=== PATIENT | male | born 1960 | race Caucasian/White ===

== ENCOUNTER 2020-06-20 14:56 | Inpatient (IN) | payer MEDICAID, SELFPAY ==
[2020-06-20] VITALS (17 sets, daily range): BP systolic 129–190; BP diastolic 83–123; PULSE 72–98; RESP 13–26; TEMP 36.2–36.7; O2SAT 97–100; BMI 20.7
--- NOTE | ~2020-06-20 | XR_ITS ---
EXAMINATION: XR chest 2V DATE: 06/20/2020 15:35 INDICATION: Left upper chest pain. TECHNIQUE: Frontal and lateral views of the chest were obtained. COMPARISON: Chest 2 views 04/30/2018, chest CT 04/30/2018 FINDINGS: There is a staple line in right lung. There is mild scarring at the lung apices. There is a tiny right pleural effusion. No pneumothorax. The heart size is normal. There is a left chest wall p acer with leads in the right atrium and right ventricle. There is mild chronic anterior wedging of a midthoracic vertebral body. IMPRESSION: 1. Tiny right pleural effusion. 2. Mild scarring at the lung apices. Reviewed, dictated and finalized at location A.
--- NOTE | ~2020-06-20 | US_ITS ---
EXAMINATION: US right upper quadrant EXAM DATE: 06/22/2020 09:19 INDICATION: Elevated liver function tests. TECHNIQUE: Multiple grayscale and Doppler images of the abdomen right upper quadrant were obtained (b y a technologist who performed the scan) and subsequently reviewed. Comparison is made to prior exami nation from 04/24/2018. FINDINGS: The pancreatic head and body are normal in appearance. The pancreatic tail is not visualized. The l iver has normal echogenicity and contour. There are no focal liver lesions identified. There is no evidence of intrahepatic biliary duct dilation. Portal venous flow was seen in the hepatopedal, nor mal direction and has normal Doppler waveform. No right-sided hydronephrosis. Common bile duct measures 4 mm, which is normal. The gallbladder is contracted, with thickened wall a t 4 mm (was 7 mm in 2018). No pericholecystic fluid. Technologist performing exam reports patient did not demonstrate sonographic Herring's sign. Please note that this sign is less reliable in patients who have received pain medication. IMPRESSION: 1. Contracted gallbladder with wall thickening which could be from underdistention, improvement in w all thickening compared to 2018 exam. 2. Unremarkable liver. Reviewed, dictated and finalized at location B. IMPRESSION: 1. Contracted gallbladder with wall thickening which could be from underdisten tion, improvement in wall thickening compared to 2018 exam. 2. Unremarkable liver.
--- NOTE | 2020-06-20 14:59 | ECG_ITS ---
Measurements Intervals [place] Rate: 83 P: -17 MS: 178 QRS: 9 QRSD: 114 T: 61 QT: 411 QTc: 483 Interpretive Statements SINUS RHYTHM INTRAVENTRICULAR CONDUCTION DELAY LEFT VENTRICULAR HYPERTROPHY AND ST-T CHANGE BORDERLINE ST-T WAVE ABNORMALITY- ANTEROLAT/HIGH LAT LEADS BASELINE ARTIFACT- III, AVF, V4-V6 BORDERLINE ECG Electronically Signed On 06-21-2020 7:59:59 CDT by Casimiro Jones D.O.
--- NOTE | 2020-06-20 15:15 | ED.GENADULT ---
HPI - General Adult General Chief complaint: Unspecified Stated complaint: chest pain Time Seen by Provider: 06/20/20 15:07 Source: patient and other Mode of arrival: ambulatory Limitations: no limitations History of Present Illness HPI narrative: Patient is a 60-year-old male Cardiac history notable for having an AICD Also has a history of hepatitis C Presents to the ER complaining that his AICD fired once this morning at about 9 AM He had not noticed any palpitations or lightheadedness prior to that happening, no chest pain no shortness of breath Additional complaint is that he has been having gait trouble and stumbling around recently Additionally he is apparently not been taking most of his medications recently because of some issue with his [place] Medicaid However he has been able to consume 8 to 10 cans of malt liquor a day, and had already begun before coming into the ER today He claims his agronomy professor told him that four would be okay, he does not see a liver doctor currently so no word on what their advice might have been Onset (ago): hour(s) Related Data Allergies Allergy/AdvReac Type Severity Reaction Status Date / Time No Known Allergies Allergy Unverified 09/08/18 20:24 Review of Systems Review of Systems: All systems reviewed & are unremarkable except as noted in HPI and below Constitutional: Constitutional: Denies chills, Reports fatigue, Denies fever(s), Denies headache(s) and Denies night sweats Eyes: Eyes: Denies change in vision, Denies loss of vision and Denies other visual disturbances ENT: Denies headache(s), Denies hoarseness, Denies epistaxis, Denies nasal congestion and Denies sore throat Cardiovascular: Cardiovascular: Reports chest pain (Sharp, brief as AICD fired), Denies leg edema, Denies palpitations and Denies dyspnea Respiratory: Respiratory: Denies cough, Denies dyspnea and Denies wheezing Gastrointestinal: Gastrointestinal: Denies abdominal pain, Denies diarrhea, Denies nausea and Denies vomiting Genitourinary: Genitourinary: Denies hematuria, Denies dysuria and Denies urinary frequency Musculoskeletal: Musculoskeletal: Denies abnormal gait, Denies deformity, Denies joint swelling, Denies muscle weakness and Denies numbness Integumentary/Breasts: Skin/Breast: Denies rash, Denies unusual bruising and Denies wounds Neurologic: Denies abnormal gait, Reports dizziness, Denies headache(s), Denies focal weakness, Denies loss of vision, Denies numbness and Reports weakness Psychiatric: Psychiatric: Reports no additional psychiatric complaints Endocrine: Endocrine: Denies fatigue and Denies palpitations Hematologic/Lymphatic: Hematologic/Lymphatic: Denies easy bleeding and Denies easy bruising Allergic/Immunologic: Allergic/Immunologic: Denies wheezing [facility] Family History Family History (Updated 05/09/18 @ 09:08 by DOCTOR UNKNOWN) Mother Patient's mother is , Onset Age: 80 Father Patient's father is , Onset Age: 55 Social History Social History Smoking status: Former smoker Smoking end date: 10/02/17 Gender identity (if verbalized by the patient): Male Exam Const: General: no acute distress and well developed Nutritional Appearance: thin Orientation/consciousness: patient oriented x3 (alert) and Other orientation findings (Alert) Other: + EtOH HENMT: Head: normal to inspection, normocephalic and atraumatic Ears: external ears normal General nose exam: No nasal discharge present and no epistaxis Face and sinus: face symmetric Mouth: Yes tongue normal and Yes moist mucous membranes Throat: other (No exudate, no erythema) Eyes: Conjunctivae: conjunctivae normal Sclera: sclerae normal EOM: EOMs intact bilaterally Neck: Neck: full ROM and supple Thyroid: thyroid normal Other: Supple Chest: Chest palpation & inspection: no tenderness Resp: Effort & Inspection: normal respiratory effort Auscultation: michael
[2020-06-20 15:22] LABS: Basophils Absolute Auto 0.1 K/mm3 (0.0-0.1); Basophils Percent Auto 1.5 % (0.2-1.2); Eosinophils Absolute Auto 0.1 K/mm3 (0-0.3); Eosinophils Percent Auto 0.8 % (0-4.4); Hematocrit 36.2 % (42.0-52.0); Hemoglobin 13.2 g/dL (14.0-18.0); Immature Granulocyte Absolute 0.02 K/mm3 (0.00-0.031); Immature Granulocyte Percent A 0.3 % (0-0.5); Immature Platelet Fraction Pct 5.4 % (0.9-11.2); Lymphocytes Absolute Auto 1.99 K/mm3 (0.9-3.2); Lymphocytes Percent Auto 33.2 % (18.3-44.2); Mean Corpuscular HGB Conc 36.5 g/dl (32-36); Mean Corpuscular Hemoglobin 35.2 pg (26-34); Mean Corpuscular Volume 96.5 fl (80-100); Mean Platelet Volume 10.3 fl (7.4-10.4); Monocytes Absolute Auto 0.8 K/mm3 (0.1-0.6); Neutrophils Absolute Auto 3.1 K/mm3 (1.3-6.7); Neutrophils Percent Auto 51.2 % (45.5-73.1); Platelet Count Result 100 k/mm3 (150-375); Red Blood Count 3.75 M/mm3 (4.6-6.20); Red Cell Distribution Width 11.8 % (11.5-14.5)
[2020-06-20 15:31] LABS: INR 1.3; Partial Thromboplastin Time 33.1 SECONDS (22.3-36.8); Prothrombin Time 15.6 Seconds (11.1-14.7)
[2020-06-20 15:34] LABS: Anion Gap 12 mmol/L (8-16); Blood Urea Nitrogen 6 mg/dL (9-20); Calcium 8.6 mg/dL (8.4-10.2); Carbon Dioxide 23 mmol/L (22-30); Chloride 93 mmol/L (98-107); Estimated CRCL calculation 114 ml/min; Estimated Glomerular Filt Rate > 60; Ethanol 260 mg/dL (<10); Glucose 103 mg/dL (75-110); Potassium 4.2 mmol/L (3.4-5.0); Sodium 128 mmol/L (137-145)
[2020-06-20 15:47] LABS: Troponin I 0.014 ng/mL (0.000-0.034)
[2020-06-20 16:00] LABS: Amphetamine Screen Urine Negative (Negative); Barbiturate Screen Urine Negative (Negative); Benzodiazepines Screen Urine Negative (Negative); Cannabinoid Screen Urine Negative (Negative); Cocaine Screen Urine Negative (Negative); Methadone Screen Urine Negative (Negative); Opiate Screen Urine Negative (Negative); Phencyclidine Screen Urine Negative (Negative)
--- NOTE | 2020-06-20 16:25 | PC.NURSE ---
called lab to add on hepatic mg
[2020-06-20 16:34] LABS: Alanine Aminotransferase 97 U/L (4-50); Albumin Level 4.2 g/dL (3.5-5.1); Alkaline Phosphatase 62 U/L (38-126); Aspartate Amino Transferase 111 U/L (17-59); Bilirubin,Total 1.5 mg/dL (0.2-1.3); Magnesium 1.6 mg/dL (1.6-2.3)
[2020-06-20] MEDS: THIAMINE HCL 200 MG/2 ML VIAL IV PUSH (17:05)
[2020-06-20 18:45] LABS: Troponin I < 0.012 ng/mL (0.000-0.034)
--- NOTE | 2020-06-20 19:00 | PM.IMHP ---
H&P: HPI History of Present Illness Date/Time: 06/20/20 19:00 Chief complaint: ?Kick to chest. Narrative: Arturo Martinez is a 60-year-old male with a history of alcoholism, tobacco abuse, prior cocaine use, nonischemic cardiomyopathy status post ICD insertion, and hepatitis-C who presented to the emergency department earlier today from home for evaluation after he experienced a ?kick to my chest? this morning. Not long after he awoke, he reports feeling a ?kick in my chest? with a sharp, shooting sensation across his upper chest. It did not seem to last very long and he went about his day which included drinking about 7 or 8 beers before going to visit his ex-. While at her house, he got under the car to inspect something that was making a noise, and when he went to get up he felt extremely weak, lightheaded, and had a stumbling gait. At that time he told his ex- what happened this morning and she encouraged him to come to the hospital. With further questioning, he admits that for the last several months he has been feeling very weak, fatigued, and has had increasing shortness of breath on lesser and lesser exertion. Due to his balance issues, he has had some falls but he has not injured himself, and he is wondering if is related to alcohol intoxication. Additionally he admits that he has been out of all of his medications for the past month or more, which she attributes to a change in insurance. At the time my evaluation his only complaint is of some back and neck discomfort from lying on the gurney in the emergency department for many hours. He is not having any chest pain at this time and also denies pleuritic pain, palpitations, shortness of breath, nausea, vomiting, sweats, lower extremity edema, focal weakness, and paresthesias. Review of Systems Review of Systems: Narrative: Twelve systems were reviewed with pertinent positives and negatives as per HPI. No fever, chills, or sweats. No recent syncopal episodes however prior to his defibrillator insertion he had several episodes of such. No recent cold or flu symptoms. No sick contacts or recent travel. No history of venous thromboembolism. No history of alcohol withdrawal symptoms or seizures. Except as documented, all other systems were reviewed and are negative. PMFSH Past Medical History Medical History (Updated 06/20/20 @ 23:07 by Heidi Alves PA-C) Alcohol abuse Chronic obstructive pulmonary disease Hepatitis C Has yet to start treatment for such due to change in insurance. Nonischemic cardiomyopathy Ejection fraction was 20% in April 2018. Grade 3-4 diastolic dysfunction was also present as well as moderate pulmonary hypertension with an estimated peak RVSP of 46 mmHg. Pneumothorax At the age of 22, secondary to bleb status post right lobectomy. Tobacco dependence Surgical History Surgical History (Updated 06/20/20 @ 22:57 by Heidi Alves PA-C) History of implantable cardioverter-defibrillator (ICD) insertion History of vascular surgery Repair of left femoral artery after injury. Family History Family History Mother Patient's mother is , Onset Age: 80 Father Patient's father is , Onset Age: 55 Sibling Pulmonary embolism Grandparent Brain aneurysm Social History Social History (Updated 06/20/20 @ 22:59 by Heidi Alves PA-C) Social History: The patient lives alone in [place]. 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 He smokes about a pack of cigarettes per day and has for about 42 years. He drinks about a 12 pack of beer a day. Previous cocaine user but has not used since diagnosis of the cardiomyopathy in 2018. He designates his son, Arturo, as his surrogate decision maker and he wishes to be a. Smoking packs per day: 0.2 Smoking cigarettes per day: 4.0 Years smoked: 42 Smoking pack-years: 8.40
[2020-06-20] MEDS: ACETAMINOPHEN 325 MG TABLET 650 MG PO (19:36)
[2020-06-20 21:31] LABS: Troponin I < 0.012 ng/mL (0.000-0.034)
[2020-06-20] MEDS: SODIUM CHLORIDE 0.9% IV 1,000 ML 75 ML IV CONT (21:36)
[2020-06-20] MEDS: FAMOTIDINE 20 MG/2 ML VIAL IV PUSH (21:36)
--- NOTE | 2020-06-20 22:51 | ADMIMU ---
This patient, Arturo Martinez, was admitted to IMU status, and placed in IMU Room 205-01 at 2118. Patient/family oriented to hospital policies and general routines including ID bracelet, bed and alarms, visiting hours, pain management, procedures, bathroom and other care routines, personal items, smoking policy, room service/diet, and visiting hours. Valuables list has been completed. Information on how to activate the Rapid Response Team has been discussed. Patient/Family are encouraged to report perceived risks to care and to ask questions if they do not understand what they are told or what they should do.
[2020-06-20 23:22] LABS: Anion Gap 7 mmol/L (8-16); Blood Urea Nitrogen 9 mg/dL (9-20); Calcium 8.6 mg/dL (8.4-10.2); Carbon Dioxide 27 mmol/L (22-30); Chloride 99 mmol/L (98-107); Estimated CRCL calculation 86 ml/min; Estimated Glomerular Filt Rate > 60; Glucose 104 mg/dL (75-110); Magnesium 1.6 mg/dL (1.6-2.3); Potassium 4.1 mmol/L (3.4-5.0); Sodium 133 mmol/L (137-145)
[2020-06-20 23:26] LABS: Creatinine Urine 75.6 mg/dL
[2020-06-20 23:46] LABS: Sodium Urine Random 20 meq/L
[2020-06-20] MEDS: MAGNESIUM SULF 2 GM/WATER 50ML 2 GM/50 ML BAG IVPB (23:54)
[2020-06-21] VITALS (17 sets, daily range): BP systolic 145–180; BP diastolic 71–92; PULSE 64–107; RESP 15–18; TEMP 35.9–36.6; O2SAT 98–100
[2020-06-21 01:15] LABS: Free T4 Free Thyroxine Reflex 1.11 ng/dL (0.78-2.19)
[2020-06-21 04:50] LABS: Anion Gap 5 mmol/L (8-16); Blood Urea Nitrogen 11 mg/dL (9-20); Calcium 8.5 mg/dL (8.4-10.2); Carbon Dioxide 28 mmol/L (22-30); Chloride 100 mmol/L (98-107); Estimated CRCL calculation 86 ml/min; Estimated Glomerular Filt Rate > 60; Glucose 131 mg/dL (75-110); Potassium 4.4 mmol/L (3.4-5.0); Sodium 133 mmol/L (137-145)
[2020-06-21] MEDS: LOSARTAN POTASSIUM 25 MG TABLET PO (08:51)
[2020-06-21] MEDS: FOLIC ACID 1 MG TABLET PO (08:51)
[2020-06-21] MEDS: carvediloL 3.125 MG TABLET PO ×2 (08:51→20:07)
[2020-06-21] MEDS: THIAMINE HCL 100 MG TABLET PO (08:52)
[2020-06-21] MEDS: THERAPEUTIC MULTIVITAMINS/MINERALS TAB (*BKC) 1 TABLET PO (08:52)
[2020-06-21] MEDS: ACETAMINOPHEN 325 MG TABLET 650 MG PO (08:54)
[2020-06-21] MEDS: FAMOTIDINE 20 MG TABLET PO ×2 (11:24→20:07)
[2020-06-21] MEDS: MAGNESIUM SULF 2 GM/WATER 50ML 2 GM/50 ML BAG IVPB (11:24)
--- NOTE | 2020-06-21 12:15 | PM.CNCAR ---
Assessment and Plan Assessment and plan (1) Nonischemic cardiomyopathy: Code(s): I42.8 - Other cardiomyopathies Status: Acute Assessment and Plan: No records available but 05/2018 EF 25%. Pt reports ICD implanted at [facility] 09/2018. denies interrogation in about a year. OBtain old CV records. 2D Echo. Resume medical therapy, pt does not know his medications. Continue Losartan and Coreg. He is not in decompensated heart failure. He needs to follow up with HV as outpatient, remain with medications, avoid ETOH, illicit substances, and tobacco. Disposition depending upon ICD interrogation and/or telemetry. 2D Echo in AM. (2) AICD discharge: Code(s): Z45.02 - Encounter for adjustment and management of automatic implantable cardiac defibrillator Status: Acute Assessment and Plan: Electrolytes stable except mild hyponatremia (not responsible for ICD shock). It is unknown if patient truly received an ICD shock, however, patient description suggests this was the case. Will need to interrogate to determine if this was appropriate (SVT vs VT). PT denied associated hemodynamic instability surrounding this event. Patient does not know the machine repairer of his device and we are in the process of tracking this down. Records requested from [facility] which have yet to be received. Recommendations to follow. (3) Alcohol abuse: Code(s): F10.10 - Alcohol abuse, uncomplicated Status: Acute Assessment and Plan: absolute abstinence from alcohol intake counseling. (4) Noncompliance: Code(s): Z91.19 - Patient's noncompliance with other medical treatment and regimen Status: Acute Assessment and Plan: Please be compliant with follow-up, ICD interrogation, medical therapy, lifestyle modifications and recommendations. Patient verbalized understanding. He states he is in the process of sorting on his insurance. (5) HTN (hypertension), benign: Code(s): I10 - Essential (primary) hypertension Status: Acute Assessment and Plan: Poorly controlled due to noncompliance. (6) Tobacco dependence: Code(s): F17.200 - Nicotine dependence, unspecified, uncomplicated Status: Acute Assessment and Plan: Smoking cessation counseling. (7) Elevated LFTs: Code(s): R79.89 - Other specified abnormal findings of blood chemistry Status: Acute Assessment and Plan: Hepatitis C and complicated by alcohol abuse. (8) Alcohol intoxication: Code(s): F10.929 - Alcohol use, unspecified with intoxication, unspecified Status: Acute Assessment and Plan: Alcohol cessation counseling performed. (9) Hepatitis C: Code(s): B19.20 - Unspecified viral hepatitis C without hepatic coma Status: Acute Assessment and Plan: Elevated LFT's. As above. Suspect underlying liver disease History of Present Illness History of Present Illness Consult date/time: Date of service: 06/21/20 12:15 This is a cardiology consultation at the request of Dr Corea of the Emergency Department and [facility] our opinion regarding possible discharge of his ICD. Requesting physician: Sebastian Corea MD Consult reason: Other (ICD shock) Reason For Visit: ?Kick to chest. Narrative: patient is a 60-year-old male followed by [facility] and vascular Dr. Jimenes for NICM s/p ICD 2018 at [facility] and history of alcohol abuse, tobacco abuse, history of cocaine use, hepatitis-C presented to the emergency department complaining he felt his ICD discharge early in the morning. Patient states he woke day presentation felt a kick described as a sharp shooting pain across his chest but no associated palpitations, near-syncope or syncope. States after that he continued to drink alcohol and then while visiting his ex- was feeling fatigued, lightheaded and his ex insisted he seek medical attenti
--- NOTE | 2020-06-21 12:35 | PM.IMPN ---
Progress Note: A&P Assessment and Plan (1) AICD discharge: Code(s): Z45.02 - Encounter for adjustment and management of automatic implantable cardiac defibrillator Status: Acute Assessment and Plan: The patient has been admitted to the hospital overnight for further evaluation given reports of AICD discharge. I was told that the device did discharge however the device was not interrogated in the emergency department as apparently the patient does not know what kind of device he has inserted. [facility] did not know what type of ICD he has in place. We are trying to get information from his Manager Integration who placed it at [facility] and whom he sees at [facility]. We can not get any records on a Monday. Will attempt to get information tomorrow. Continue monitoring on Tele. Cardiology input appreciated. (2) Nonischemic cardiomyopathy: Code(s): I42.8 - Other cardiomyopathies Status: Acute Assessment and Plan: Chronic. Noncompliant with medications over the last 1 or more months states he lost his insurance. He was restarted on medications from prior discharge: Coreg 3.125 mg Q12h, Losartan 25 mg daily. He is clinically compensated with regards to his volume status, will not start any diuretics. Continue monitoring. Cardiology input appreciated. (3) Alcohol intoxication: Code(s): F10.929 - Alcohol use, unspecified with intoxication, unspecified Status: Acute Assessment and Plan: Patient states he drinks alcohol excessively and had 8-10 beers prior to arrival to emergency room us night. His alcohol level was 260 in the emergency department. He denies any withdrawal symptoms when he stops drinking in the past Initiate CIWA protocol and start thiamine and folic acid supplementation. Ativan available as needed for CIWA greater than 8. Long discussion with the patient regarding his alcoholism and noncompliance with medications, and he voices understanding. I hope that he will try to curb his alcohol intake after these discussions. See what today has been within normal range Continue monitoring. (4) Hyponatremia: Code(s): E87.1 - Hypo-osmolality and hyponatremia Status: Acute Assessment and Plan: Regarding the hyponatremia, I suspect this is due to his alcohol consumption today. Na improved to 133. FENa was 0.2 and showing pre-renal. He appears euvolemic at this time. Continue monitoring. (5) Tobacco dependence: Code(s): F17.200 - Nicotine dependence, unspecified, uncomplicated Status: Acute Assessment and Plan: Educated the patient to quit smoking. He does not seem to motivated to quit smoking. He does not need nicotine patch at this time. (6) Hypomagnesemia: Code(s): E83.42 - Hypomagnesemia Status: Acute Assessment and Plan: Magnesium is low levels of normal, thus will replace. (7) Elevated LFTs: Code(s): R79.89 - Other specified abnormal findings of blood chemistry Status: Acute Assessment and Plan: His LFTs are elevated, likely due to his chronic alcoholism. He may very well have underlying chronic liver disease given mild thrombocytopenia. Will check hepatitis panel, further liver workup in liver ultrasound to rule out underlying cirrhosis Continue monitoring CMP Time Spent With Patient Time with patient: 25 - 35 minutes Subjective Date/time seen: 06/21/20 12:35 Interval history: Date of Service 06/21/2020: The patient reports feeling okay. He is still feeling weak and fatigued which has been going on the last few month
[2020-06-21] MEDS: hydrALAZINE HCL 20 MG/ML VIAL 10 MG IV PUSH (13:45)
[2020-06-22] VITALS (9 sets, daily range): BP systolic 140–179; BP diastolic 77–97; PULSE 64–99; RESP 16–20; TEMP 36.5–36.7; O2SAT 98–100
[2020-06-22 04:39] LABS: Hematocrit 34.3 % (42.0-52.0); Hemoglobin 12.2 g/dL (14.0-18.0); Mean Corpuscular HGB Conc 35.6 g/dl (32-36); Mean Corpuscular Hemoglobin 35.3 pg (26-34); Mean Corpuscular Volume 99.1 fl (80-100); Mean Platelet Volume 11.1 fl (7.4-10.4); Platelet Count Result 81 k/mm3 (150-375); Red Blood Count 3.46 M/mm3 (4.6-6.20); White Blood Count 5.1 K/mm3 (4.5-10.0)
[2020-06-22 04:57] LABS: Alanine Aminotransferase 66 U/L (4-50); Albumin Level 3.5 g/dL (3.5-5.1); Alkaline Phosphatase 51 U/L (38-126); Anion Gap 5 mmol/L (8-16); Aspartate Amino Transferase 67 U/L (17-59); Bilirubin,Total 1.4 mg/dL (0.2-1.3); Blood Urea Nitrogen 13 mg/dL (9-20); Calcium 8.7 mg/dL (8.4-10.2); Carbon Dioxide 26 mmol/L (22-30); Chloride 101 mmol/L (98-107); Estimated CRCL calculation 103 ml/min; Estimated Glomerular Filt Rate > 60; Glucose 113 mg/dL (75-110); Potassium 4.4 mmol/L (3.4-5.0); Sodium 132 mmol/L (137-145)
[2020-06-22 05:10] LABS: Iron 175 ug/dL (49-181)
[2020-06-22 05:19] LABS: Percent Iron Saturation 62 % (20-50)
[2020-06-22 05:43] LABS: Hepatitis B Surface Antigen Negative (Negative)
[2020-06-22 05:48] LABS: HAV RESULT Negative (Negative); Hepatitis B Core IgM Result Negative (Negative)
[2020-06-22 05:57] LABS: Folic Acid 7.9 ng/mL (2.76->20)
[2020-06-22 06:00] LABS: Hepatitis B Surface Anti Res Negative
[2020-06-22 06:06] LABS: Hepatitis C Virus Antibody Reactive (Negative)
[2020-06-22] MEDS: carvediloL 3.125 MG TABLET PO (09:33)
[2020-06-22] MEDS: THIAMINE HCL 100 MG TABLET PO (09:33)
[2020-06-22] MEDS: CYANOCOBALAMIN 1,000 MCG TABLET 1000 MCG PO (09:34)
[2020-06-22] MEDS: THERAPEUTIC MULTIVITAMINS/MINERALS TAB (*BKC) 1 TABLET PO (09:34)
[2020-06-22] MEDS: FOLIC ACID 1 MG TABLET PO (09:34)
[2020-06-22] MEDS: FAMOTIDINE 20 MG TABLET PO (09:34)
[2020-06-22] MEDS: LOSARTAN POTASSIUM 25 MG TABLET PO (09:34)
[2020-06-22] MEDS: ACETAMINOPHEN 325 MG TABLET 650 MG PO (11:29)
--- NOTE | 2020-06-22 11:41 | PM.PNCARD ---
Progress Note: A&P Additional Plan 60-year-old man with: Not nonischemic cardiomyopathy noncompliant with follow-up and as such on no medication at all. Since his blood pressure is high today I am going to double both the dose of his carvedilol and losartan. His ICD was interrogated this morning it is functioning properly and there were no therapies delivered. There is no cardiac reason the this gentleman must remain in the hospital at this point he should re-establish with follow-up with his staff developer/plastic worker who implanted his ICD and alcohol abstinence and compliance with medication was stressed. Jonathon Carlson MD [facility] Subjective Date/time seen: Date of service: 06/22/20 11:41 Interval history: 60-year-old man with a history of nonischemic cardiomyopathy being seen in follow-up after he was admitted with a suspected discharge of his ICD. He has a history of longstanding noncompliance with his staff developer and also not taking any of his medications. He is abusing alcohol as well. Patient has no complaints today and feels reasonably well hoping to be discharged Discussed with him that his ICD was interrogated and there is no evidence that he received a shock yesterday he has not had any therapy since September of 2018 according to the interrogation report from today. Exam Const: General: comfortable and no acute distress HENMT: Mouth: Yes moist mucous membranes Eyes: Sclera: sclerae normal Neck: Neck: supple and no JVD Other: Carotid pulses are normal bilaterally Resp: Effort & Inspection: normal respiratory effort Auscultation: clear to auscultation bilaterally Cardio: Rate: regular rate Rhythm: regular rhythm Other: PMI is enlarged but not displaced no murmur no gallop GI: Auscultation: normal bowel sounds Skin: General skin exam: normal color Neuro: Cognition (Neuro): normal cognition Extrem: General: normal to inspection Objective Data Vital Signs Vital Signs: Vital Signs - 24 hr 06/21/20 12:00 06/21/20 14:00 06/21/20 16:00 Temperature 36.4 C 36.6 C Pulse Rate 64 72 69 Pulse Rate [Bilateral Pedal (Dorsalis Pedis) Palpation] 69 Respiratory Rate 16 16 Blood Pressure 178/92 H 155/71 H Pulse Oximetry 100 100 06/21/20 18:00 06/21/20 19:03 06/21/20 20:00 Temperature 36.2 C L Pulse Rate 68 78 Pulse Rate [Bilateral Pedal (Dorsalis Pedis) Palpation] 78 Respiratory Rate 18 Blood Pressure 156/88 H Pulse Oximetry 99 99 06/21/20 20:07 06/21/20 22:00 06/21/20 23:56 Temperature Pulse Rate 80 75 Pulse Rate [Bilateral Pedal (Dorsalis Pedis) Palpation] 73 Respiratory Rate Blood Pressure Pulse Oximetry 06/22/20 00:00 06/22/20 02:00 06/22/20 04:00 Temperature 36.7 C 36.5 C Pulse Rate 73 86 86 Pulse Rate [Bilateral Pedal (Dorsalis Pedis) Palpation] 76 Respiratory Rate 18 20 Blood Pressure 154/97 H 150/77 H Pulse Oximetry 99 98 06/22/20 06:00 06/22/20 08:00 06/22/20 08:36 Temperature 36.6 C Pulse Rate 99 69 Pulse Rate [Bilateral Pedal (Dorsalis Pedis) Palpation] Respiratory Rate 16 Blood Pressure 179/95 H Pulse Oximetry 98 98 06/22/20 09:33 06/22/20 10:00 Temperature Pulse Rate 77 67 Pulse Rate [Bilateral Pedal (Dorsalis Pedis) Palpation] Respiratory Rate Blood Pressure Pulse Oximetry Intake/Output Intake/Output: Intake & Output 06/19/20 06/20/20 06/21/20 06/22/20 23:59 23:59 23:59 23:59 Intake Total 117 770 390 Output Total 100 1375 750 Balance 51 -893 -537 Meds/Results Medications: Active Medications Generic Name Dose Route Start Last Admin Trade Name Flexq PRN Reason Stop Dose Admin Acetaminophen 650 mg 06/20/20 18:13 06/22/20 11:29 Tylenol Tablet PO 650 mg Q4H PRN Administration Mild Pain (1-3) or Fever Budesonide/Formoterol Fumarate 2 puff 06/21/20 08:00 06/22/20 08:34 Symbicort 160-4.5 Mcg (*Sp) Inhaler INHALATION 2 puff Q12HRT [facility] Administrat
--- NOTE | 2020-06-22 12:42 | PM.DS ---
DS: Admitting Diagnosis Admitting Diagnosis Admitting Diagnosis: ?Kick to chest DS: Discharge Diagnosis Discharge Diagnosis (1) AICD discharge: Code(s): Z45.02 - Encounter for adjustment and management of automatic implantable cardiac defibrillator Status: Acute Assessment and Plan: The patient has been admitted to the hospital overnight for further evaluation given reports of AICD discharge. I was told that the device did discharge however the device was not interrogated in the emergency department as apparently the patient does not know what kind of device he has inserted. Tele showed NSR rate 89 bpm, few PVCs, otherwise no arrhythmia or abnormality. The patients information was recieved and he has a Medronic ICD which was interrogated today and cardiology states it is functioning properly and there were no therapies delivered. From a Cardiology's standpoint he is free to be discharged to follow up with his Manager Agricultural and EP Manager Agricultural who implanted his ICD. (2) Nonischemic cardiomyopathy: Code(s): I42.8 - Other cardiomyopathies Status: Acute Assessment and Plan: Chronic. Noncompliant with medications over the last 1 or more months states he lost his insurance. He was restarted on medications from prior discharge: Coreg 3.125 mg Q12h, Losartan 25 mg daily. His BP was still elevated so Cardiology increased Coreg to 6.25 mg Q12h and Losartan to 50 mg daily. He is clinically compensated with regards to his volume status. No diuretics needed at this time. Follow up with his Manager Agricultural. (3) Alcohol intoxication: Code(s): F10.929 - Alcohol use, unspecified with intoxication, unspecified Status: Acute Assessment and Plan: Patient states he drinks alcohol excessively and had 8-10 beers prior to arrival to emergency room us night. His alcohol level was 260 in the emergency department. He denies any withdrawal symptoms when he stops drinking in the past CIWA has been within normal range. Continue thiamine and folic acid supplementation. Disscussed with the patient about quitting alcohol use and further damage to his body and liver. He seems open to the option (4) Hyponatremia: Code(s): E87.1 - Hypo-osmolality and hyponatremia Status: Acute Assessment and Plan: Regarding the hyponatremia, I suspect this is due to his alcohol consumption today. Na stable at 132. Will recheck CMP in 1 week for further monitoring (5) Tobacco dependence: Code(s): F17.200 - Nicotine dependence, unspecified, uncomplicated Status: Acute Assessment and Plan: Educated the patient to quit smoking. He does not seem to motivated to quit smoking. (6) Hypomagnesemia: Code(s): E83.42 - Hypomagnesemia Status: Acute Assessment and Plan: Magnesium was normal today after supplementation yesterday. (7) Elevated LFTs: Code(s): R79.89 - Other specified abnormal findings of blood chemistry Status: Acute Assessment and Plan: His LFTs are elevated, likely due to his chronic alcoholism. He may very well have underlying chronic liver disease given mild thrombocytopenia. Hepatitis panel showing Reactive Hep C (He has hep C and it has never been treated) pending further testing. Pending CARSON Screen, Mitochondrial AB, Alpha 1 antitripsyn phenotype. Liver US showed Unremarkable liver. Will check CMP 1 week and follow up with PCP (8) Vitamin B12 deficiency: Code(s): E53.8 - Deficiency of other specified B group vitamins Status: Acute Assessment and Plan: B12 was
[2020-06-24 16:59] LABS: Hepatitis B Core Ab Total Nonreactive (Nonreactive)
[2020-06-24 20:36] LABS: Hepatitis C RNA, Quant PCR 1830000 IU/mL
[2020-06-24 22:09] LABS: Mitochondrial (M2) Ab (IgG) <=20.0 U (<=20.0)
[2020-06-25 04:04] LABS: Osmolality, Urine 224 mOsm/kg (50-1200)
[2020-06-26 18:43] LABS: HCV Genotype, LiPA 1a
--- NOTE | 2020-06-29 14:57 | PC.NURSE ---
Hep B Core- non-reactive HCV RNA [id number] HCV RNA PCR- 6.26 CARSON- negtive Mitochondrial M2 IgG- <=20 Alpha 1 AP- PI MM REsults faxed to PCP.
--- NOTE | 2020-06-29 15:06 | PC.NURSE ---
MARY CARMEN Brown aware of HCV findings.
== END 2020-06-22 12:18 | disposition home or self-care (01) | DRG 207 ==
LOC: ANHED 18:12 → ANHIMU 22:53
PROVIDERS: Physician Assistant; Admitting Provider Internal Medicine; Emergency Provider Emergency Medicine; Visit Provider Physician Assistant
DX: Z45.02 Encounter for adjustment and management of automatic implantable cardiac defibrillator (principal); I42.8 Other cardiomyopathies; Z91.14 Patient's other noncompliance with medication regimen; F10.229 Alcohol dependence with intoxication, unspecified; Y90.8 Blood alcohol level of 240 mg/100 ml or more; E83.42 Hypomagnesemia; E87.1 Hypo-osmolality and hyponatremia; E53.8 Deficiency of other specified B group vitamins; R79.89 Other specified abnormal findings of blood chemistry; D69.6 Thrombocytopenia, unspecified; F17.210 Nicotine dependence, cigarettes, uncomplicated; Z86.19 Personal history of other infectious and parasitic diseases
CPT/HCPCS: 36415; 71046; 76705; 80048; 80053; 80076; 80307; 82104; 82570; 82607; 82728; 82746; 83520; 83540; 83550; 83735; 83930; 83935; 84300; 84439; 84443; 84480; 84484; 85025; 85027; 85055; 85610; 85730; 86038; 86704; 86705; 86706; 86709; 86803; 87340; 87522; 93005; 94640; 96374; 99285; A9270; J0360; J3411; J3475; J7030

== ENCOUNTER 2024-09-24 16:05 | Inpatient (IN) | payer MEDICARE, SELFPAY ==
--- NOTE | ~2024-09-24 | XR_ITS ---
XR chest ET placement Ordering provider: Chantal Jain DO History: 64 years Male with . After intubation to confirm ET placement . Comparison: September 27, 2024 FINDINGS: MEDIASTINUM: The cardiac silhouette is moderately enlarged. Endotracheal tube with the tip above the andrew by about 4 cm. Left bipolar pacemaker. Nasogastric tube extending to the stomach. LUNGS: No effusions or pneumothorax. Bilateral airspace disease seen suggestive of pneumonia versus A RDS versus pulmonary edema. OTHER: No free air under the diaphragm. IMPRESSION: No significant change from previous examination. Endotracheal tube about 5 cm above the andrew. Reviewed, dictated and finalized at location A. L STRUCTURAL ENGINEER
--- NOTE | ~2024-09-24 | XR_ITS ---
EXAMINATION: XR chest 1V portable Exam Date/Time: 09/26/2024 19:54 TECHNICAL ASSOCIATE HISTORY: increase respiratory effort Comparison: 09/24/2024. RESULT: Lines, tubes, and devices: Left chest pacer/AICD with intact leads. Lungs and pleura: Decreased lung volumes. Moderate diffuse bilateral patchy and groundglass opacitie s. Mild bilateral costophrenic angle blunting, greater on the right. Cardiomediastinal silhouette: Stable. Other: No acute osseous or upper abdominal finding. IMPRESSION: Moderate diffuse pulmonary airspace disease may represent edema and/or infection, with a component of atelectasis. Small bilateral pleural effusions. Reviewed, dictated and finalized at location K. NICAL ASSOCIATE IMPRESSION: Moderate diffuse pulmonary airspace disease may represent edema and/or infectio n, with a component of atelectasis. Small bilateral pleural effusions.
--- NOTE | ~2024-09-24 | XR_ITS ---
EXAMINATION: XR chest 1V portable DATE: 09/27/2024 09:09 INDICATION: Tachypnea. TECHNIQUE: A single frontal view of the chest was obtained on 2 radiographs. COMPARISON: Chest view 09/26/2024, chest CT 04/30/2018 FINDINGS: There are airspace opacities in all lung zones bilaterally. There is a staple line in right lung apex. There are small pleural effusions. No pneumothorax. Cardiomegaly is noted. There is a lef t chest wall pacer with leads in the right atrium and right ventricle. IMPRESSION: 1. Stable diffuse lung disease, consistent with pulmonary edema versus pneumonia. 2. Stable small pleural effusions. 3. Cardiomegaly. Reviewed, dictated and finalized at location A. R WATER HEATER INSTALLER IMPRESSION: 1. Stable diffuse lung disease, consistent with pulmonary edema versus pneumoni a. 2. Stable small pleural effusions. 3. Cardiomegaly.
--- NOTE | ~2024-09-24 | XR_ITS ---
XR abdomen gastric tube rechec Ordering provider: Chantal Jain DO History: . NG advancement . Comparison: None. FINDINGS/impression: BOWEL: Nasogastric tube is seen with the tip in the fundus of the stomach. Slightly dilated small bowel loops. Follow-up advised.. Reviewed, dictated and finalized at location A. COMMUNICATIONS REPAIRER
--- NOTE | ~2024-09-24 | CT_ITS ---
History: Altered mental status PROCEDURE: CT head without contrast. Examination is markedly limited by significant motion artifact COMPARISON: None TECHNIQUE: Axial imaging of the head performed from the skull base to the vertex without IV contrast. Sagittal a nd coronal reformations obtained. DLP: 983 mGy-cm FINDINGS: The ventricles are somewhat dilated (age advanced) in size, shape and position. There is no mass, mass effect or midline shift. Decreased attenuation within the periventricular white matter, findings suggestive of microvascular i schemic disease, far advanced for patient of this age. Sulcal prominence is also noted, proportional to the degree of ventricular dilatation. There is no abnormal extra-axial fluid collection or intracranial hemorrhage. Visualized paranasal sinuses are clear. The mastoid air cells are well aerated. No acute displaced fractures within the overlying cranium. Impression: No acute intracranial hemorrhage or suspicious mass effect. Age advanced degenerative change, possibly due to microvascular ischemic disease Reviewed, dictated and finalized at location A. UCTION ASSEMBLER Impression: No acute intracranial hemorrhage or suspicious mass effect. Age advanced degenerative change, possibly due to microvascular ischemic diseas e
--- NOTE | ~2024-09-24 | CT_ITS ---
EXAMINATION: CT brain wo con DATE: 09/26/2024 21:39 INDICATION: obtunded unequal pupils, hyponatremia . TECHNIQUE: Computed tomography (CT) of the head was performed without intravenous contrast. The mA wa s adjusted according to patient size. Iterative reconstruction technique was employed. The dose-lengt h product was 1362.00 mGy-cm. COMPARISON: 08/25/2024. FINDINGS: No acute intracranial hemorrhage or extra-axial fluid collection. No hydrocephalus, mass, or herniation. No acute ischemic infarct. Unremarkable dural venous sinus attenuation. No acute osseous abnormality. The aerated spaces are clear. Mild atrophy and chronic white matter change. Atherosclerotic intracranial calcification. Old left ba tyrell ganglia lacunar infarct. IMPRESSION: No acute intracranial process. Reviewed, dictated and finalized at location K. DLE FRAME CARVER
--- NOTE | ~2024-09-24 | CT_ITS ---
EXAMINATION:CT diagnostic chest wo con DATE: 09/27/2024 10:46 INDICATION: Abnormal chest radiograph. Lung disease. Tachypnea. TECHNIQUE: Computed tomography (CT) of the chest was performed without intravenous contrast. Automate d exposure control and iterative reconstruction technique were employed. The dose-length product (DLP ) was 395.51 mGy-cm. COMPARISON: Chest single view 09/27/2024, chest CT 04/30/2018 FINDINGS: There are moderate-sized right and small left loculated pleural effusions. There is a crazy paving pattern involving all lobes. There is a staple line in right lung apex. Cardiomegaly is noted . No pericardial effusion. There is a left chest wall pacer with leads in the right atrium and right ventricle. There is mild mediastinal and left supraclavicular lymphadenopathy. The central pulmonary arteries are enlarged, consistent with pulmonary arterial hypertension. There is a small volume of as cites. There is severe cervical spondylosis and moderate thoracic spondylosis. IMPRESSION: 1. Diffuse lung disease, consistent with pulmonary edema versus pneumonia. 2. Moderate-sized right and small left loculated pleural effusions. 3. Cardiomegaly. 4. Small volume of ascites. 5. Mild mediastinal and left supraclavicular lymphadenopathy, likely reactive. Reviewed, dictated and finalized at location A. RAL ATTENDANT
--- NOTE | ~2024-09-24 | XR_ITS ---
CHEST RADIOGRAPH, PA AND LATERAL CLINICAL HISTORY: weakness . COMPARISON: 06/20/2020 TECHNIQUE: PA and lateral views of the chest. FINDINGS The cardiomediastinal silhouette is enlarged, unchanged. The left mid lung is partially obscured due to AICD generator. Wires project over the right atrium and right ventricle. Large hiatal hernia is redemonstrated. Small bilateral pleural effusions IMPRESSION: Cardiomegaly (unchanged) with a large hiatal hernia and small bilateral pleural effusions Reviewed, dictated and finalized at location A. ER GROWER
--- NOTE | ~2024-09-24 | XR_ITS ---
XR abdomen gastric tube insert Ordering provider: Angela Leyva MD History: . NG Tube placement . Comparison: None. FINDINGS/impression: BOWEL: Nasogastric tube is seen with the tip in the gastroesophageal area. Advancement is advised. No nobstructive visualized bowel gas pattern. Bilateral lung airspace disease. The left bipolar pacemaker. Reviewed, dictated and finalized at location A. ENGINE OPERATOR
--- NOTE | 2024-09-24 16:29 | ECG_ITS ---
Test Date: 2024-09-24 17:19:01 Measurements Intervals [place] Rate: 118 P: -14 RI: 175 QRS: -59 QRSD: 121 T: 103 QT: 325 QTc: 457 Interpretive Statements SINUS TACHYCARDIA LEFT ATRIAL ENLARGEMENT [-0.15mV P WAVE IN V1/V2] MARKED LEFT AXIS DEVIATION [QRS AXIS < -30] MODERATE INTRAVENTRICULAR CONDUCTION DELAY [105+ ms QRS DURATION, 80+ ms Q/S IN V1/V2, NO Q AND 60+ ms R IN I/aVL/V5/V6] ST ELEVATION CONSISTENT WITH INJURY, PERICARDITIS, OR EARLY REPOLARIZATION [ST ELEVATION W/O NORMALLY INFLECTED T WAVE] ST DEVIATION AND MODERATE T-WAVE ABNORMALITY, CONSIDER LATERAL ISCHEMIA [-0.1+ mV T WAVE IN I/aVL/V5/V6] No previous ECG available for comparison Electronically Signed On 09-25-2024 13:49:08 CAT SWAMPER by Kal Finn M.D.
[2024-09-24 17:22] VITALS: BP 99/66; PULSE 100; TEMP 36.2; O2SAT 100
[2024-09-24 17:26] LABS: Basophils Percent Auto 0.2 % (0.2-1.2); Eosinophils Percent Auto 0.3 % (0-4.4); Hematocrit 37.8 % (42.0-52.0); Hemoglobin 13.8 g/dL (14.0-18.0); Immature Granulocyte Absolute 0.06 K/mm3 (0.00-0.031); Immature Granulocyte Percent A 0.7 % (0-0.5); Immature Platelet Fraction Pct 10.5 % (0.9-11.2); Lymphocytes Absolute Auto 0.46 K/mm3 (0.9-3.2); Lymphocytes Percent Auto 5.2 % (18.3-44.2); Mean Corpuscular HGB Conc 36.5 g/dl (32-36); Mean Corpuscular Hemoglobin 33.5 pg (26-34); Mean Corpuscular Volume 91.7 fl (80-100); Mean Platelet Volume 11.5 fl (7.4-10.4); Monocytes Absolute Auto 0.7 K/mm3 (0.1-0.6); Monocytes Percent Auto 8.2 % (2.6-8.5); Neutrophils Absolute Auto 7.5 K/mm3 (1.3-6.7); Neutrophils Percent Auto 85.4 % (45.5-73.1); Platelet Count Result 81 k/mm3 (150-375); Red Blood Count 4.12 M/mm3 (4.6-6.20); Red Cell Distribution Width 12.5 % (11.5-14.5); White Blood Count 8.8 K/mm3 (4.5-10.0)
[2024-09-24 17:39] LABS: Platelet Estimate Decreased (Adequate); Schistocytes None Seen
[2024-09-24 17:40] LABS: Giant Platelets Present; Hypochromasia 1+; Large Platelets Present
[2024-09-24 17:42] LABS: Alanine Aminotransferase 19 U/L (6-50); Albumin Level 4.4 g/dL (3.5-5.1); Alkaline Phosphatase 59 U/L (38-126); Anion Gap 9 mmol/L (4-12); Aspartate Amino Transferase 39 U/L (17-59); Bilirubin,Total 2.7 mg/dL (0.2-1.3); Blood Urea Nitrogen 12 mg/dL (9-20); Carbon Dioxide 19 mmol/L (22-30); Chloride 86 mmol/L (98-107); Estimated CRCL calculation 72 ml/min; Estimated Glomerular Filt Rate > 60; Glucose 124 mg/dL (65-110); Potassium 4.5 mmol/L (3.4-5.0); Sodium 114 mmol/L (137-145)
--- NOTE | 2024-09-24 18:30 | ED_ITS ---
HPI - Weakness General Chief complaint: Weakness Stated complaint: weakness Time Seen by Provider: 09/24/24 18:11 History of Present Illness HPI Narrative: 64-year-old male with history of thrombocytopenia, COPD, hypomagnesemia, hepatitis-C, alcohol abuse, cardiomyopathy with Medtronic AICD placed in 2019, medication noncompliance, alcoholic liver cirrhosis presents to the emergency department with son at bedside for increased weakness for 3 weeks. Patient's son provides history and states patient has been increasingly more confused, generally weak and unable to care for himself. States over the past day has been unable to ambulate or get himself and in of the car which is new. He states the patient is not a eating or drinking and has not been taking care of himself. The patient states he feels generally weak. He denies head injury or trauma, vision changes, focal numbness or weakness, chest pain, abdominal pain, N/V/D. He states he has some dysuria today and also reports shortness of breath and coughing fits. Patient's son states the patient lives at home by himself but he plans to have the patient move in with him in the near future. The patient usually drinks about 10 beers a day for ?his whole life?, however since the onset of his weakness 3 weeks ago he has been drinking approximately 3 beers a day. The patient states his last drink was yesterday evening. He admits to history of withdrawals but does not feel like he is in withdrawal. No seizures. Denies anxiety, paresthesias, headache. Patient's son states the patient has been treated for hepatitis C in the past. 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 Related Data Home Medications ?Medication ?Instructions ?Recorded ?Confirmed ?Last Taken ?Type sildenafil (pulm.hypertension) 20 20 mg PO USEASDIRECTD PRN ED 06/20/20 06/22/20 Unknown History mg tablet Allergies Allergy/AdvReac Type Severity Reaction Status Date / Time No Known Allergies Allergy Verified 09/24/24 16:10 Review of Systems 2 Review of Systems: All systems reviewed & are unremarkable except as noted in HPI and below PMFSH Past Medical History Medical History (Updated 09/24/24 @ 22:31 by Josey Camara PA-C) Chronic obstructive pulmonary disease Alcohol abuse Hepatitis C Has yet to start treatment for such due to change in insurance. Tobacco dependence Pneumothorax At the age of 22, secondary to bleb status post right lobectomy. Nonischemic cardiomyopathy Ejection fraction was 20% in April 2018. Grade 3-4 diastolic dysfunction was also present as well as moderate pulmonary hypertension with an estimated peak RVSP of 46 mmHg. Surgical History Surgical History History of implantable cardioverter-defibrillator (ICD) insertion History of vascular surgery Repair of left femoral artery after injury. Family History Family History Mother Patient's mother is , Onset Age: 80 Father Patient's father is , Onset Age: 55 Sibling Pulmonary embolism Grandparent Brain aneurysm Social History Social History Social History: The patient lives alone in [place]. 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 He smokes about a pack of cigarettes per day and has for about 42 years. He drinks about a 12 pack of beer a day. Previous cocaine user but has not used since diagnosis of the cardiomyopathy in 2018. He designates his son, Arturo, as his surrogate decision maker and he wishes to be a. Smoking packs per day: 0.2 Smoking cigarettes per day: 4.0 Years smoked: 42 Smoking pack-years: 8.40 Smoking status: Current every day smoker Tobacco type: cigarettes Smoking end date: 10/02/17 Alcohol intake: current Drinks per week: 84 Substance use: former Substance use type: crack/cocaine Last use: 2-3 yrs ago Gender identity (if verbalized by the patient): Male Spiritual care concerns: No Exam 2 Narrative: GENERAL: Chronically ill-appearing, unkempt, coughing on exam, frail HEAD: Normocephalic, atraumatic. EYES: PERRLA and EOMI. Scleral icterus ENT: Nares clear, no rhinorrhea or epistaxis. Mucous membranes dry NECK: Supple. CHEST: Clear to auscultation. No respiratory distress. HEART: Regular rate and rhythm. No murmur heard. Normal peripheral pulses. ABDOMEN: Soft, nontender, nondistended, normal active bowel sounds. EXTREMITIES: Normal range of motion. No edema. SKIN: Warm, dry, no rash. NEURO: No focal deficits. Alert and oriented x3. Moving all extremities spontaneously Course Vital Signs Vital signs: Vital Signs Temperature 97.1 F L 09/24/24 17:22 Pulse Rate 100 09/24/24 17:22 Blood Pressure 99/66 L 09/24/24 17:22 Pulse Oximetry 100 09/24/24 17:22 Temperature 97.1 F L 09/24/24 17:22 Pulse Rate 117 H 09/24/24 22:12 Respiratory Rate 22 H 09/24/24 22:12 Blood Pressure 126/95 H 09/24/24 22:12 Pulse Oximetry 95 09/24/24 22:12 MDM - Weakness MDM Narrative Medical decision making narrative: 64-year-old male with history of cardiomyopathy and AICD placement in 2019, COPD, CHF, alcohol abuse and cirrhosis presents to the emergency department with son at bedside for generalized weakness and failure to thrive for 3 weeks. Patient's last reported drink was yesterday evening, however he has only been drinking 3 beers a day for the past 3 weeks, prior to that was drinking 10 beers a day. He does not appear to be in withdrawal on my exam. CIWA is 2. He is frail and unkempt. CBC without leukocytosis, chronic anemia with hemoglobin of 13.8, chronic thrombocytopenia with platelets at 81. Chemistries are significant for acute hyponatremia at 1:14 a.m. with chloride of 86 and bicarb of 19, normal gap of 9. Glucose normal at 125. Bilirubin elevated 2.7, remainder LFTs are unremarkable. He has known cirrhosis. BNP is elevated at 30,000 thousand, however patient does appear dry on exam with soft blood pressures. A L of fluids was provided. TSH is elevated but free T4 is within normal limits. Urinalysis with nitrites but no wbc's, culture is pending. UDS is positive for cocaine. Viral swabs are negative. Chest x-ray shows cardiomegaly with large hiatal hernia small bilateral pleural effusions. CT brain with no acute intracranial hemorrhage suspicious mass effect. There is age-related degenerative changes. EKG shows sinus tachycardia rate of 113, minimal ST depression in the lateral leads with inverted T-waves, no ST elevations. Troponin is elevated at 0.40, repeat is flat. Suspect demand ischemia Spoke with hospitalist, Dr. Jorge, who advises consult with ICU in nephrology for significant hyponatremia. Discussed with sharepoint analyst, Dr. Potter, who advises 1500 cc fluid restriction, urine osmolality, serum osmolality and urine sodium with repeat BMP in the morning. Discussed with head of loss prevention, Dr. Rodriguez, who agrees to admission ICU. Lab Data 09/24/24 17:19 09/24/24 17:19 Labs: Lab Results 09/24/24 09/24/24 09/24/24 Range/Units 17:19 18:27 18:58 WBC 8.8 (4.5-10.0) K/mm3 RBC 4.12 L (4.6-6.20) M/mm3 Hgb 13.8 L (14.0-18.0) g/dL Hct 37.8 L (42.0-52.0) % MCV 91.7 (80-100) fl MCH 33.5 (26-34) pg MCHC 36.5 H (32-36) g/dl RDW 12.5 (11.5-14.5) % Plt Count 81 L (150-375) k/mm3 MPV 11.5 H (7.4-10.4) fl Immature Gran % (Auto) 0.7 H (0-0.5) % Neut % (Auto) 85.4 H (45.5-73.1) % Lymph % (Auto) 5.2 L (18.3-44.2) % [place] % (Auto) 8.2 (2.6-8.5) % Eos % (Auto) 0.3 (0-4.4) % Baso % (Auto) 0.2 (0.2-1.2) % Lymph # (Auto) 0.46 L (0.9-3.2) K/mm3 [place] # (Auto) 0.7 H (0.1-0.6) K/mm3 Eos # (Auto) 0.0 (0-0.3) K/mm3 Baso # (Auto) 0.0 (0.0-0.1) K/mm3 Abs Immat Gran (auto) 0.06 H (0.00-0.031) K/mm3 Absolute Neuts (auto) 7.5 H (1.3-6.7) K/mm3 Absolute Nucleated RBC 0.000 (0.0-0.012) K/mm3 Nucleated RBC % 0.0 (0.0-0.2) % Platelet Estimate Decreased (Adequate) Large Platelets Present Giant Platelets Present % Immature Plt Fraction 10.5 (0.9-11.2) % Hypochromasia 1+ Schistocytes None seen PT (11.1-14.7) Seconds INR APTT (22.3-36.8) Seconds Sodium 114 L* (137-145) mmol/L Potassium 4.5 (3.4-5.0) mmol/L Chloride 86 L (98-107) mmol/L Carbon Dioxide 19 L (22-30) mmol/L Anion Gap 9 (4-12) mmol/L BUN 12 (9-20) mg/dL Creatinine 1.00 (0.7-1.3) mg/dL Estim Creat Clear Calc 72 ml/min Estimated GFR > 60 (59 - ) Glucose 124 H (65-110) mg/dL POC Capillary Glucose (65-105) mg/dl Lactic Acid (0.7-2.0) mmol/L Calcium 9.0 (8.4-10.2) mg/dL Magnesium (1.6-2.3) mg/dL Total Bilirubin 2.7 H (0.2-1.3) mg/dL AST 39 (17-59) U/L ALT 19 (6-50) U/L Alkaline Phosphatase 59 (38-126) U/L Total Creatine Kinase (55-170) U/L Troponin I (0.000-0.034) ng/mL NT-Pro-B Natriuret Pep (19.9-100) pg/mL Total Protein 8.0 (6.3-8.2) g/dL Albumin 4.4 (3.5-5.1) g/dL TSH (0.465-4.680) uIU/mL Free T4 2.12 (0.78-2.19) ng/dL Urine Color Dark jasbir (Yellow) Urine Appearance Clear (Clear) Urine pH 5.0 (5.0-9.0) Ur Specific [place] 1.028 (1.001-1.035) Urine Protein 2+ H (Negative) mg/dL Urine Glucose (UA) Negative (Negative) mg/dL Urine Ketones Trace H (Negative) mg/dL Ur Blood (Man) Negative (Negative) Urine Nitrate Positive H (Negative) Urine Bilirubin 2+ H (Negative) Urine Urobilinogen 1.0 (<2.0) mg/dL Add Ur Microanalysis Reviewed Leukocyte Esterase Rfl 1+ H (Negative) BESSIE/UL Urine RBC 3-5 H (0-2) /hpf Urine WBC 0-5 (0-3) /hpf Ur Squamous Epith Cells Occasional (Few) /hpf Urine Bacteria None seen /hpf Urine Casts 3-5 Urine Opiates Screen Negative (Negative) Urine Methadone Screen Negative (Negative) Ur Barbiturates Screen Negative (Negative) Ur Phencyclidine Scrn Negative (Negative) Ur Amphetamine Screen Negative (Negative) U Benzodiazepines Scrn Negative (Negative) Urine Cocaine Screen Positive A (Negative) U Cannabinoids Screen Negative (Negative) Influenza A (RT-PCR) (Negative) Influenza B (RT-PCR) (Negative) RSV (RT-PCR) (Negative) SARS-CoV-2 RNA (RT-PCR) (Negative) 09/24/24 09/24/24 09/24/24 Range/Units 19:00 19:00 19:00 WBC (4.5-10.0) K/mm3 RBC (4.6-6.20) M/mm3 Hgb (14.0-18.0) g/dL Hct (42.0-52.0) % MCV (80-100) fl MCH (26-34) pg MCHC (32-36) g/dl RDW (11.5-14.5) % Plt Count (150-375) k/mm3 MPV (7.4-10.4) fl Immature Gran % (Auto) (0-0.5) % Neut % (Auto) (45.5-73.1) % Lymph % (Auto) (18.3-44.2) % [place] % (Auto) (2.6-8.5) % Eos % (Auto) (0-4.4) % Baso % (Auto) (0.2-1.2) % Lymph # (Auto) (0.9-3.2) K/mm3 [place] # (Auto) (0.1-0.6) K/mm3 Eos # (Auto) (0-0.3) K/mm3 Baso # (Auto) (0.0-0.1) K/mm3 Abs Immat Gran (auto) (0.00-0.031) K/mm3 Absolute Neuts (auto) (1.3-6.7) K/mm3 Absolute Nucleated RBC (0.0-0.012) K/mm3 Nucleated RBC % (0.0-0.2) % Platelet Estimate (Adequate) Large Platelets Giant Platelets % Immature Plt Fraction (0.9-11.2) % Hypochromasia Schistocytes PT 17.2 H (11.1-14.7) Seconds INR 1.4 APTT 32.1 (22.3-36.8) Seconds Sodium (137-145) mmol/L Potassium (3.4-5.0) mmol/L Chloride (98-107) mmol/L Carbon Dioxide (22-30) mmol/L Anion Gap (4-12) mmol/L BUN (9-20) mg/dL Creatinine (0.7-1.3) mg/dL Estim Creat Clear Calc ml/min Estimated GFR (59 - ) Glucose (65-110) mg/dL POC Capillary Glucose (65-105) mg/dl Lactic Acid 2.5 H (0.7-2.0) mmol/L Calcium (8.4-10.2) mg/dL Magnesium 1.6 Cancelled (1.6-2.3) mg/dL Total Bilirubin (0.2-1.3) mg/dL AST (17-59) U/L ALT (6-50) U/L Alkaline Phosphatase (38-126) U/L Total Creatine Kinase 91 (55-170) U/L Troponin I 0.040 H* (0.000-0.034) ng/mL NT-Pro-B Natriuret Pep > 04127 H Cancelled (19.9-100) pg/mL Total Protein (6.3-8.2) g/dL Albumin (3.5-5.1) g/dL TSH 5.410 H (0.465-4.680) uIU/mL Free T4 (0.78-2.19) ng/dL Urine Color (Yellow) Urine Appearance (Clear) Urine pH (5.0-9.0) Ur Specific [place] (1.001-1.035) Urine Protein (Negative) mg/dL Urine Glucose (UA) (Negative) mg/dL Urine Ketones (Negative) mg/dL Ur Blood (Man) (Negative) Urine Nitrate (Negative) Urine Bilirubin (Negative) Urine Urobilinogen (<2.0) mg/dL Add Ur Microanalysis Leukocyte Esterase Rfl (Negative) BESSIE/UL Urine RBC (0-2) /hpf Urine WBC (0-3) /hpf Ur Squamous Epith Cells (Few) /hpf Urine Bacteria /hpf Urine Casts Urine Opiates Screen (Negative) Urine Methadone Screen (Negative) Ur Barbiturates Screen (Negative) Ur Phencyclidine Scrn (Negative) Ur Amphetamine Screen (Negative) U Benzodiazepines Scrn (Negative) Urine Cocaine Screen (Negative) U Cannabinoids Screen (Negative) Influenza A (RT-PCR) Negative (Negative) Influenza B (RT-PCR) Negative (Negative) RSV (RT-PCR) Negative (Negative) SARS-CoV-2 RNA (RT-PCR) Negative (Negative) 09/24/24 09/24/24 Range/Units 19:10 22:21 WBC (4.5-10.0) K/mm3 RBC (4.6-6.20) M/mm3 Hgb (14.0-18.0) g/dL Hct (42.0-52.0) % MCV (80-100) fl MCH (26-34) pg MCHC (32-36) g/dl RDW (11.5-14.5) % Plt Count (150-375) k/mm3 MPV (7.4-10.4) fl Immature Gran % (Auto) (0-0.5) % Neut % (Auto) (45.5-73.1) % Lymph % (Auto) (18.3-44.2) % [place] % (Auto) (2.6-8.5) % Eos % (Auto) (0-4.4) % Baso % (Auto) (0.2-1.2) % Lymph # (Auto) (0.9-3.2) K/mm3 [place] # (Auto) (0.1-0.6) K/mm3 Eos # (Auto) (0-0.3) K/mm3 Baso # (Auto) (0.0-0.1) K/mm3 Abs Immat Gran (auto) (0.00-0.031) K/mm3 Absolute Neuts (auto) (1.3-6.7) K/mm3 Absolute Nucleated RBC (0.0-0.012) K/mm3 Nucleated RBC % (0.0-0.2) % Platelet Estimate (Adequate) Large Platelets Giant Platelets % Immature Plt Fraction (0.9-11.2) % Hypochromasia Schistocytes PT (11.1-14.7) Seconds INR APTT (22.3-36.8) Seconds Sodium (137-145) mmol/L Potassium (3.4-5.0) mmol/L Chloride (98-107) mmol/L Carbon Dioxide (22-30) mmol/L Anion Gap (4-12) mmol/L BUN (9-20) mg/dL Creatinine (0.7-1.3) mg/dL Estim Creat Clear Calc ml/min Estimated GFR (59 - ) Glucose (65-110) mg/dL POC Capillary Glucose 125 H (65-105) mg/dl Lactic Acid 2.2 H (0.7-2.0) mmol/L Calcium (8.4-10.2) mg/dL Magnesium (1.6-2.3) mg/dL Total Bilirubin (0.2-1.3) mg/dL AST (17-59) U/L ALT (6-50) U/L Alkaline Phosphatase (38-126) U/L Total Creatine Kinase (55-170) U/L Troponin I Pending (0.000-0.034) ng/mL NT-Pro-B Natriuret Pep (19.9-100) pg/mL Total Protein (6.3-8.2) g/dL Albumin (3.5-5.1) g/dL TSH (0.465-4.680) uIU/mL Free T4 (0.78-2.19) ng/dL Urine Color (Yellow) Urine Appearance (Clear) Urine pH (5.0-9.0) Ur Specific [place] (1.001-1.035) Urine Protein (Negative) mg/dL Urine Glucose (UA) (Negative) mg/dL Urine Ketones (Negative) mg/dL Ur Blood (Man) (Negative) Urine Nitrate (Negative) Urine Bilirubin (Negative) Urine Urobilinogen (<2.0) mg/dL Add Ur Microanalysis Leukocyte Esterase Rfl (Negative) BESSIE/UL Urine RBC (0-2) /hpf Urine WBC (0-3) /hpf Ur Squamous Epith Cells (Few) /hpf Urine Bacteria /hpf Urine Casts Urine Opiates Screen (Negative) Urine Methadone Screen (Negative) Ur Barbiturates Screen (Negative) Ur Phencyclidine Scrn (Negative) Ur Amphetamine Screen (Negative) U Benzodiazepines Scrn (Negative) Urine Cocaine Screen (Negative) U Cannabinoids Screen (Negative) Influenza A (RT-PCR) (Negative) Influenza B (RT-PCR) (Negative) RSV (RT-PCR) (Negative) SARS-CoV-2 RNA (RT-PCR) (Negative) Discharge Plan Discharge Clinical Impression: Acute hyponatremia, Elevated troponin Patient Disposition: Still a Patient Condition: Stable Patient Language: Latvian Prescriptions: No Action sildenafil (pulm.hypertension) 20 mg tablet 20 mg PO USEASDIRECTD PRN (Reason: ED) Rx Instructions: take 3 pills an hour before intercourse budesonide-formoterol [Symbicort] 160-4.5 mcg/actuation Hfa Aerosol Inhaler 2 puff inhalation Q12HRT Qty: 10.2 0RF losartan [Cozaar] 50 mg Tablet 50 mg PO QAM Qty: 30 0RF carvedilol [Coreg] 6.25 mg Tablet 6.25 mg PO Q12HR Qty: 60 0RF cyanocobalamin (vitamin B-12) [Vitamin B-12] 1,000 mcg Tablet 1,000 mcg PO QAM Qty: 30 0RF thiamine HCl (vitamin B1) [Vitamin B-1] 100 mg Tablet 100 mg PO QAM Qty: 30 0RF famotidine 20 mg Tablet 20 mg PO Q12HR Qty: 60 0RF folic acid 1 mg Tablet 1 mg PO DAILY Qty: 30 0RF Thera M Plus (ferrous fumarat) 9 mg iron-400 mcg Tablet 1 tablet PO QAM Qty: 30 0RF Follow-up/Referrals: PHYSICIAN,PRIVATE INQUIRY AGENT [Non-Staff] -
[2024-09-24 18:53] LABS: Bacteria Urine None Seen /hpf; Need Manual Microscopic Reviewed; Squamous Epithelial Cell Urine Occasional /hpf (Few); WBC Urine 0-5 /hpf (0-3)
[2024-09-24 18:54] LABS: Add Urine Microscopic? YES; Appearance Urine Clear (Clear); Bilirubin Urine 2+ (Negative); Blood Urine Negative (Negative); Glucose Urine UA Negative (Negative); Ketones Urine Trace mg/dL (Negative); Leukocyte Esterase Ur 1+ LEU/UL (Negative); Nitrate Urine Positive (Negative); Protein Urine 2+ mg/dL (Negative); Specific Grav Ur 1.028 (1.001-1.035)
[2024-09-24] MEDS: SODIUM CHLORIDE 0.9% IV 1,000 ML 999 ML IV CONT (18:58)
[2024-09-24 19:00] LABS: Color Urine Dark Amber (Yellow)
[2024-09-24 19:10] VITALS: PULSE 110; RESP 26
[2024-09-24 19:18] LABS: Glucose Point of Care 125 mg/dl (65-105)
[2024-09-24 19:21] LABS: Creatine Kinase 91 U/L (55-170); INR 1.4; Lactic Acid Reflex 2.5 mmol/L (0.7-2.0); Magnesium 1.6 mg/dL (1.6-2.3); Prothrombin Time 17.2 Seconds (11.1-14.7)
[2024-09-24 19:22] LABS: Partial Thromboplastin Time 32.1 Seconds (22.3-36.8)
[2024-09-24 19:28] LABS: Amphetamine Screen Urine Negative (Negative); Barbiturate Screen Urine Negative (Negative); Benzodiazepines Screen Urine Negative (Negative); Cannabinoid Screen Urine Negative (Negative); Cocaine Screen Urine Positive (Negative); Methadone Screen Urine Negative (Negative); Opiate Screen Urine Negative (Negative); Phencyclidine Screen Urine Negative (Negative)
[2024-09-24 19:45] LABS: NT Pro B Type Natriuretic Pept > 30000 pg/mL (19.9-100)
[2024-09-24 19:46] LABS: Influenza A QL RT-PCR Negative (Negative); Influenza B QL RT-PCR Negative (Negative); RSV RNA, RT-PCR Negative (Negative); SARS-CoV-2 RNA PCR Negative (Negative)
[2024-09-24 20:22] LABS: Free T4 Free Thyroxine 2.12 ng/dL (0.78-2.19)
--- NOTE | 2024-09-24 21:45 | ECG_ITS ---
Test Date: 2024-09-24 22:28:11 Measurements Intervals [place] Rate: 113 P: -27 NM: 181 QRS: -18 QRSD: 126 T: 152 QT: 344 QTc: 472 Interpretive Statements SINUS TACHYCARDIA LEFT ATRIAL ENLARGEMENT [-0.15mV P-WAVE IN V1/V2] ST depression lateral leads could be strain pattern or ischemia Compared to ECG 09/24/2024 17:19:01 no changes Electronically Signed On 09-25-2024 13:45:14 COMPLEX DIRECTOR by Kal Finn M.D.
[2024-09-24 22:07] LABS: Reflex Lactic Acid Yes or No Add Lactic
[2024-09-24 22:12] VITALS: BP 126/95; PULSE 117; RESP 22; O2SAT 95
[2024-09-24 22:35] LABS: Lactic Acid 2.2 mmol/L (0.7-2.0)
[2024-09-24 22:58] LABS: Troponin I 0.038 ng/mL (0.000-0.034)
[2024-09-24 23:24] LABS: Fractional Inspired Oxygen 21 %; HCO3 VBG 19.1 mEq/l (24.0-30.0); PCO2 VBG 31.7 mmHg (42.0-48.0); pH VBG 7.397 (7.300-7.400)
--- NOTE | 2024-09-24 23:24 | P.HP_ITS ---
H&P: HPI History of Present Illness Date/Time: 09/24/24 23:24 Chief Complaint: Generalized weakness Narrative: This is a 64-year-old male with past medical history significant for alcohol dependence, tobacco dependence, hepatic cirrhosis, hepatitis C chronic, cardiomyopathy, AICD, COPD. Patient presents to the emergency room due to generalized weakness and altered mental status with lethargy. Patient cannot re ally participate in any meaningful way for history taking. Preliminary workup was significant for chemistry panel showed sodium of 114, chloride 86, brain atretic peptide 30,000 troponins x3 [id number]. A chest x-ray showed cardiomegaly with hiatal hernia and bilateral pleural effusions a CT of the head showed no acute intracranial hemorrhage however age advanced degenerative change. Patient has been admitted for further evaluation management and treatment. CHEST RADIOGRAPH, PA AND LATERAL CLINICAL HISTORY: weakness . COMPARISON: 06/20/2020 TECHNIQUE: PA and lateral views of the chest. FINDINGS The cardiomediastinal silhouette is enlarged, unchanged. The left mid lung is partially obscured due to AICD generator. Wires project over the right atrium and right ventricle. Large hiatal hernia is redemonstrated. Small bilateral pleural effusions IMPRESSION: Cardiomegaly (unchanged) with a large hiatal hernia and small bilateral pleural effusions History: Altered mental status PROCEDURE: CT head without contrast. Examination is markedly limited by significant motion artifact COMPARISON: None TECHNIQUE: Axial imaging of the head performed from the skull base to the vertex without IV contrast. Sagittal and coronal reformations obtained. DLP: 983 mGy-cm FINDINGS: The ventricles are somewhat dilated (age advanced) in size, shape and position. There is no mass, mass effect or midline shift. Decreased attenuation within the periventricular white matter, findings suggestive of microvascular ischemic disease, far advanced for patient of this age. Sulcal prominence is also noted, proportional to the degree of ventricular dilatation. There is no abnormal extra-axial fluid collection or intracranial hemorrhage. Visualized paranasal sinuses are clear. The mastoid air cells are well aerated. No acute displaced fractures within the overlying cranium. Impression: No acute intracranial hemorrhage or suspicious mass effect. Age advanced degenerative change, possibly due to microvascular ischemic disease Review of Systems Review of Systems: Generalized weakness [facility] Past Medical History Medical History (Updated 09/25/24 @ 03:23 by Alyson Dalton MD) Chronic obstructive pulmonary disease Alcohol abuse Hepatitis C Has yet to start treatment for such due to change in insurance. Tobacco dependence Pneumothorax At the age of 22, secondary to bleb status post right lobectomy. Nonischemic cardiomyopathy Ejection fraction was 20% in April 2018. Grade 3-4 diastolic dysfunction was also present as well as moderate pulmonary hypertension with an estimated peak RVSP of 46 mmHg. Surgical History Surgical History (Updated 09/25/24 @ 03:23 by Alyson Dalton MD) History of implantable cardioverter-defibrillator (ICD) insertion History of vascular surgery Repair of left femoral artery after injury. Family History Family History Mother Patient's mother is , Onset Age: 80 Father Patient's father is , Onset Age: 55 Sibling Pulmonary embolism Grandparent Brain aneurysm Social History Social History Social History: The patient lives alone in [place]. 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 He smokes about a pack of cigarettes per day and has for about 42 years. He drinks about a 12 pack of beer a day. Previous cocaine user but has not used since diagnosis of the cardiomyopathy in 2018. He designates his son, Arturo, as his surrogate decision maker and he wishes to be a. Smoking packs per day: 0.5 Smoking cigarettes per day: 10.0 Years smoked: 42 Smoking pack-years: 21.00 Smoking status: Current every day smoker Tobacco type: cigarettes Smoking end date: 10/02/17 Alcohol intake: current Drinks per week: 21 Substance use: never Substance use type: crack/cocaine Last use: 2-3 yrs ago Do You Feel Safe in your Home?: Yes Lack of Transportation: No Lack of Food: Never True Current Housing: I Have Housing Concerned About Future Housing: No Difficulty Paying Gas/Electric Bills: No Difficulty Paying for Meds: No Currently Unemployed: No Education: Trade/Vocational Certificate Difficulty w/ Childcare or Family Care: No Gender identity (if verbalized by the patient): Male Spiritual care concerns: No Meds Home Medications and Allergies Home Medications ?Medication ?Instructions ?Recorded ?Confirmed ?Type sildenafil (pulm.hypertension) 20 20 mg PO USEASDIRECTD PRN ED 06/20/20 06/22/20 History mg tablet budesonide-formoterol HFA 160 2 puff inhalation Q12HRT #10.2 06/22/20 Rx mcg-4.5 mcg/actuation aerosol grams inhaler (Symbicort) carvedilol 6.25 mg tablet (Coreg) 6.25 mg PO Q12HR #60 tabs 06/22/20 Rx cyanocobalamin (vitamin B-12) 1,000 mcg PO QAM #30 tabs 06/22/20 Rx 1,000 mcg tablet (Vitamin B-12) famotidine 20 mg tablet 20 mg PO Q12HR #60 tabs 06/22/20 Rx folic acid 1 mg tablet 1 mg PO DAILY #30 tabs 06/22/20 Rx losartan 50 mg tablet (Cozaar) 50 mg PO QAM #30 tabs 06/22/20 Rx multivitamin-iron 9 mg-folic acid 1 tablet PO QAM #30 tabs 06/22/20 Rx 400 mcg-calcium and minerals tablet (Thera M Plus (ferrous fumarate)) thiamine HCl (vitamin B1) 100 mg 100 mg PO QAM #30 tabs 06/22/20 Rx tablet (Vitamin B-1) Allergies Allergy/AdvReac Type Severity Reaction Status Date / Time No Known Allergies Allergy Verified 09/24/24 16:10 Vital Signs Vital Signs - 24 hr 09/24/24 17:22 09/24/24 19:10 09/24/24 22:12 Temperature 97.1 F L Pulse Rate 100 110 H 117 H Respiratory Rate 26 H 22 H Blood Pressure 99/66 L 126/95 H Pulse Oximetry 100 95 Exam Narrative: Laying in a stretcher Const: General: cooperative, comfortable, no acute distress, well developed, ill appearing chronically, poor hygiene, tired appearing and thin Nutritional Appearance: average body habitus Orientation/consciousness: oriented to person and oriented to place HENMT: Head: normal to inspection, normocephalic and atraumatic Ears: hearing grossly normal bilaterally Face/Nose/Sinus: normal facial exam Face and sinus: normal facial exam Eyes: General: appearance normal, both eyes and all related structures Pupils: Equal, round and reactive pupils present EOM: EOMs intact bilaterally Neck: Neck: full ROM, no lymphadenopathy and no JVD Thyroid: thyroid normal Lymphatic: no lymphadenopathy noted Resp: Effort & Inspection: normal respiratory effort and able to speak in complete sentences Auscultation: clear to auscultation bilaterally Cardio: Jugular venous distension: no JVD Rate: regular rate Rhythm: regular rhythm Heart sounds: S1 normal heart sound present and S2 normal heart sound present GI: GI Palp: Yes Soft to palpation and Yes No hepatosplenomegaly present : General: Yes deferred Skin: Rashes: no rashes Wounds: no wounds Neuro: General: oriented to person, oriented to place, CN's II-XI intact bilaterally and Unable to assess gait Cranial nerves: Yes CN's II-XII intact bilaterally and Yes Equal, round and reactive pupils present Cognition (Neuro): normal cognition Speech: normal speech Gait exam (Neuro): Unable to assess gait Motor exam (neuro): 5/5 motor strength present throughout Extrem: General: normal to inspection, full ROM, no joint enlargement and no pedal edema H&P: Results Labs Labs: Short CBC 09/24/24 Range/Units 17:19 WBC 8.8 (4.5-10.0) K/mm3 Hgb 13.8 L (14.0-18.0) g/dL Hct 37.8 L (42.0-52.0) % Plt Count 81 L (150-375) k/mm3 BMP 09/24/24 17:19 Sodium 114 L* Potassium 4.5 Chloride 86 L Carbon Dioxide 19 L BUN 12 Creatinine 1.00 Glucose 124 H Calcium 9.0 Cardiac Enzymes 09/24/24 09/24/24 Range/Units 19:00 22:21 Total Creatine Kinase 91 (55-170) U/L Troponin I 0.040 H* 0.038 H* (0.000-0.034) ng/mL Liver Function 09/24/24 Range/Units 17:19 Total Bilirubin 2.7 H (0.2-1.3) mg/dL AST 39 (17-59) U/L ALT 19 (6-50) U/L Alkaline Phosphatase 59 (38-126) U/L Albumin 4.4 (3.5-5.1) g/dL Urine 09/24/24 Range/Units 18:27 Urine Color Dark jasbir (Yellow) Urine Appearance Clear (Clear) Urine pH 5.0 (5.0-9.0) Ur Specific [place] 1.028 (1.001-1.035) Urine Protein 2+ H (Negative) mg/dL Urine Glucose (UA) Negative (Negative) mg/dL Assessment and Plan Assessment and plan (1) Acute hyponatremia: Code(s): E87.1 - Hypo-osmolality and hyponatremia Status: Acute Assessment and Plan: Admit to ICU Patient received 1 L of NS in emergency room Nephrology consult Serum osmolality, urine osmolality pending Likely multifactorial as patient with hepatic cirrhosis drinks 3 beers daily and has poor per orally intake. Serial BMP Cautious normalization of sodium (2) Thrombocytopenia: Code(s): D69.6 - Thrombocytopenia, unspecified Status: Acute Assessment and Plan: Likely secondary to liver disease (3) Alcohol abuse: Code(s): F10.10 - Alcohol abuse, uncomplicated Status: Acute Assessment and Plan: CIWA protocol as needed (4) Tobacco dependence: Code(s): F17.200 - Nicotine dependence, unspecified, uncomplicated Status: Acute Assessment and Plan: Patient quit (5) Nonischemic cardiomyopathy: Code(s): I42.8 - Other cardiomyopathies Status: Acute Assessment and Plan: Continue to monitor (6) History of implantable cardioverter-defibrillator (ICD) insertion: Code(s): Z95.810 - Presence of automatic (implantable) cardiac defibrillator Status: Acute Assessment and Plan: Continue to monitor (7) Chronic obstructive pulmonary disease: Code(s): J44.9 - Chronic obstructive pulmonary disease, unspecified Status: Acute Assessment and Plan: Stable (8) Elevated troponin: Code(s): R79.89 - Other specified abnormal findings of blood chemistry Status: Acute Assessment and Plan: Minimally [facility] Advance Care Plan I have confirmed that the patient's Advanced Care Plan is present, code status is documented, or surrogate decision maker is listed in patient medical record.: Yes Medication Reconciliation I have utilized all available resources to obtain, update and review the patients current medications (includes all prescriptions, OTC, herbals, cannabis, and nutritional supplements).: Yes
[2024-09-24 23:26] LABS: PO2 VBG < 27.0 mmHg (35.0-45.0)
[2024-09-25] VITALS (21 sets, daily range): BP systolic 98–122; BP diastolic 69–89; PULSE 102–123; RESP 18–34; TEMP 36.2–36.7; O2SAT 90–100; BMI 21.8
[2024-09-25 00:15] LABS: Sodium Urine Random < 5 meq/L
--- NOTE | 2024-09-25 00:37 | ADMGEN ---
This patient, Arturo Martinez, was admitted to Intensive Care Unit-7. Patient/family oriented to hospital policies and general routines including ID bracelet, bed and alarms, visiting hours, pain management, procedures, bathroom and other care routines, personal items, smoking policy, room service/diet, and visiting hours. Information on how to activate the Rapid Response Team has been discussed. Patient/Family are encouraged to report perceived risks to care and to ask questions if they do not understand what they are told or what they should do. Report received from MENA Bruce at 09/24/24 [id number]. Patient arrived via wheelchair, transferred to bed with assist x1. Patient gait unsteady.
[2024-09-25 01:07] LABS: Glucose Point of Care 126 mg/dl (65-105)
[2024-09-25 01:36] LABS: Troponin I 0.037 ng/mL (0.000-0.034)
[2024-09-25 02:20] LABS: MRSA (PCR) NOT DETECTED (NOT DETECTE)
[2024-09-25 03:53] LABS: Basophils Percent Auto 0.1 % (0.2-1.2); Eosinophils Percent Auto 0.1 % (0-4.4); Hematocrit 36.2 % (42.0-52.0); Hemoglobin 13.2 g/dL (14.0-18.0); Immature Granulocyte Absolute 0.04 K/mm3 (0.00-0.031); Immature Granulocyte Percent A 0.4 % (0-0.5); Immature Platelet Fraction Pct 10.4 % (0.9-11.2); Lymphocytes Percent Auto 4.4 % (18.3-44.2); Mean Corpuscular HGB Conc 36.5 g/dl (32-36); Mean Corpuscular Hemoglobin 33.4 pg (26-34); Mean Corpuscular Volume 91.6 fl (80-100); Mean Platelet Volume 11.5 fl (7.4-10.4); Monocytes Absolute Auto 0.9 K/mm3 (0.1-0.6); Monocytes Percent Auto 9.4 % (2.6-8.5); Neutrophils Absolute Auto 7.8 K/mm3 (1.3-6.7); Neutrophils Percent Auto 85.6 % (45.5-73.1); Nucleated Red Blood Cells Perc 0.2 % (0.0-0.2); Platelet Count Result 78 k/mm3 (150-375); Red Blood Count 3.95 M/mm3 (4.6-6.20); Red Cell Distribution Width 12.6 % (11.5-14.5); White Blood Count 9.1 K/mm3 (4.5-10.0)
[2024-09-25 04:02] LABS: Ammonia < 9 umol/L (9-30)
[2024-09-25 04:04] LABS: Anion Gap 11 mmol/L (4-12); Blood Urea Nitrogen 14 mg/dL (9-20); Calcium 8.7 mg/dL (8.4-10.2); Carbon Dioxide 14 mmol/L (22-30); Chloride 89 mmol/L (98-107); Estimated CRCL calculation 77 ml/min; Estimated Glomerular Filt Rate > 60; Glucose 120 mg/dL (65-110); Magnesium 1.5 mg/dL (1.6-2.3); Potassium 4.8 mmol/L (3.4-5.0); Sodium 114 mmol/L (137-145)
[2024-09-25 04:15] LABS: Anisocytosis 1+; Macrocytosis 1+ (NORMAL); Platelet Estimate Decreased (Adequate); Schistocytes None Seen
--- NOTE | 2024-09-25 07:39 | P.CONNP_ITS ---
Assessment and Plan Assessment and plan (1) Hyponatremia: Code(s): E87.1 - Hypo-osmolality and hyponatremia Status: Acute Assessment and Plan: The patient has a low sodium. The patient has had low sodiums dating back to 2018. Generally they run in the high 120s and low 130s. He has never had evaluation for this From what we see so far: Urine sodium was less than 5 (and his urine sodium is usually low dating back to 2018), but we do not have a urine creatinine. Osmolality is are pending CT brain shows no mass effect, however possible microvascular ischemic disease Chest x-ray shows cardiomegaly and bilateral pleural effusion TSH is slightly high at 5.4 Urinalysis shows specific gravity of 1.028 Patient says he has not been eating very well. And he has been drinking less beer. His urine osmolality is 1.028 suggesting that this is not beer drinkers potomania. The patient has a very low ejection fraction and so probably has chronic pre renal azotemia. This could contribute to hyponatremia. Perhaps the patient is just dehydrated. He did receive some fluid in the ER last night and the sodium was repeated but has not improved At this point we can try cautious hydration to treat dehydration but I do not want to go too fast because of his bad heart. Will fluid restrict and follow the sodium level. Will also check a cortisol level and a serum protein electrophoresis and await osmolality levels in the blood and urine (2) HTN (hypertension), benign: Code(s): I10 - Essential (primary) hypertension Status: Acute Assessment and Plan: Blood pressure is under good control (3) Chronic obstructive pulmonary disease: Code(s): J44.9 - Chronic obstructive pulmonary disease, unspecified Status: Acute Assessment and Plan: Getting supportive care (4) Alcohol abuse: Code(s): F10.10 - Alcohol abuse, uncomplicated Status: Acute Assessment and Plan: Encourage to stop (5) Hepatitis C: Code(s): B19.20 - Unspecified viral hepatitis C without hepatic coma Status: Acute Assessment and Plan: Liver enzymes are okay (6) Tobacco dependence: Code(s): F17.200 - Nicotine dependence, unspecified, uncomplicated Status: Acute Assessment and Plan: Encourage to stop (7) Nonischemic cardiomyopathy: Code(s): I42.8 - Other cardiomyopathies Status: Acute Assessment and Plan: Getting supportive care History of Present Illness Reason for Consult Consult date: 09/25/24 Chief Complaint Chief complaint: Hyponatremia History of Present Illness Narrative: Arturo is a very pleasant 64-year-old gentleman who has multiple medical problems including alcohol use disorder, hepatic cirrhosis, hepatitis-C, cardiomyopathy with an AICD, COPD, who came in the hospital because of weakness. The patient said this is been going on for a few weeks. It is a been gradually worse. Patient drinks heavily. About 10 beers per day is what he says. However lately since he has the weakness, he cut his beer consumption down to about 3 per day. He has not had any nausea vomiting diarrhea or constipation. No chest pain or shortness of breath. No skin rash or joint pains. He does not take narcotics, antidepressants, diuretics, or PPIs. He has no history of cancer. Does have COPD and heart failure. No history of stroke or other brain lesion. No thyroid or adrenal gland issues that he knows of He says he has never had low sodium before that he knows of. Review of Systems 2 Constitutional: Constitutional: Reports no additional constitutional complaints Eyes: Eyes: Reports no additional eye complaints ENT: Reports system reviewed and no additional complaints, except as documented Cardiovascular: Cardiovascular: Reports no additional cardiovascular complaints Respiratory: Respiratory: Reports no additional respiratory complaints Gastrointestinal: Gastrointestinal: Reports no additional gastrointestinal complaints Genitourinary: Genitourinary: Reports no additional male genitourinary complaints Musculoskeletal: Musculoskeletal: Reports no additional musculoskeletal complaints Integumentary/Breasts: Skin/Breast: Reports system reviewed and no additional complaints, except as docu Neurologic: Reports system reviewed and no additional complaints, except as documented Psychiatric: Psychiatric: Reports no additional psychiatric complaints Endocrine: Endocrine: Reports no additional endocrine complaints [facility] Past Medical History Medical History Chronic obstructive pulmonary disease Alcohol abuse Hepatitis C Has yet to start treatment for such due to change in insurance. Tobacco dependence Pneumothorax At the age of 22, secondary to bleb status post right lobectomy. Nonischemic cardiomyopathy Ejection fraction was 20% in April 2018. Grade 3-4 diastolic dysfunction was also present as well as moderate pulmonary hypertension with an estimated peak RVSP of 46 mmHg. Surgical History Surgical History History of implantable cardioverter-defibrillator (ICD) insertion History of vascular surgery Repair of left femoral artery after injury. Family History Family History Mother Patient's mother is , Onset Age: 80 Father Patient's father is , Onset Age: 55 Sibling Pulmonary embolism Grandparent Brain aneurysm Social History Social History Social History: The patient lives alone in [place]. 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 He smokes about a pack of cigarettes per day and has for about 42 years. He drinks about a 12 pack of beer a day. Previous cocaine user but has not used since diagnosis of the cardiomyopathy in 2018. He designates his son, Arturo, as his surrogate decision maker and he wishes to be a. Smoking packs per day: 0.5 Smoking cigarettes per day: 10.0 Years smoked: 42 Smoking pack-years: 21.00 Smoking status: Current every day smoker Tobacco type: cigarettes Smoking end date: 10/02/17 Alcohol intake: current Drinks per week: 21 Substance use: never Substance use type: crack/cocaine Last use: 2-3 yrs ago Do You Feel Safe in your Home?: Yes Lack of Transportation: No Lack of Food: Never True Current Housing: I Have Housing Concerned About Future Housing: No Difficulty Paying Gas/Electric Bills: No Difficulty Paying for Meds: No Currently Unemployed: No Education: Trade/Vocational Certificate Difficulty w/ Childcare or Family Care: No Gender identity (if verbalized by the patient): Male Spiritual care concerns: No Meds Home Medications and Allergies Home Medications ?Medication ?Instructions ?Recorded ?Confirmed ?Type sildenafil (pulm.hypertension) 20 20 mg PO USEASDIRECTD PRN ED 06/20/20 06/22/20 History mg tablet budesonide-formoterol HFA 160 2 puff inhalation Q12HRT #10.2 06/22/20 Rx mcg-4.5 mcg/actuation aerosol grams inhaler (Symbicort) carvedilol 6.25 mg tablet (Coreg) 6.25 mg PO Q12HR #60 tabs 06/22/20 Rx cyanocobalamin (vitamin B-12) 1,000 mcg PO QAM #30 tabs 06/22/20 Rx 1,000 mcg tablet (Vitamin B-12) famotidine 20 mg tablet 20 mg PO Q12HR #60 tabs 06/22/20 Rx folic acid 1 mg tablet 1 mg PO DAILY #30 tabs 06/22/20 Rx losartan 50 mg tablet (Cozaar) 50 mg PO QAM #30 tabs 06/22/20 Rx multivitamin-iron 9 mg-folic acid 1 tablet PO QAM #30 tabs 06/22/20 Rx 400 mcg-calcium and minerals tablet (Thera M Plus (ferrous fumarate)) thiamine HCl (vitamin B1) 100 mg 100 mg PO QAM #30 tabs 06/22/20 Rx tablet (Vitamin B-1) Allergies Allergy/AdvReac Type Severity Reaction Status Date / Time No Known Allergies Allergy Verified 09/24/24 16:10 Vital Signs Vital Signs - 24 hr 09/24/24 17:22 09/24/24 19:10 09/24/24 22:12 Temperature 97.1 F L Pulse Rate 100 110 H 117 H Respiratory Rate 26 H 22 H Blood Pressure 99/66 L 126/95 H Pulse Oximetry 100 95 Oxygen Delivery 09/25/24 00:00 09/25/24 00:00 09/25/24 02:00 Temperature 97.7 F Pulse Rate 113 H 110 H 112 H Respiratory Rate 30 H Blood Pressure 98/77 L Pulse Oximetry 95 Oxygen Delivery 09/25/24 02:00 09/25/24 04:00 09/25/24 04:00 Temperature 98.1 F Pulse Rate 112 H 118 H 118 H Respiratory Rate 27 H 21 H 21 H Blood Pressure 111/85 122/89 Pulse Oximetry 95 97 97 Oxygen Delivery Room Air 09/25/24 04:00 09/25/24 06:00 09/25/24 06:00 Temperature Pulse Rate 119 H 113 H 113 H Respiratory Rate 21 H Blood Pressure 111/80 Pulse Oximetry 95 Oxygen Delivery Exam 2 Narrative: Exam Narrative: Well developed well-nourished male in no acute distress Skin is warm and dry without rash Head normocephalic atraumatic Eyes normal sclerae and conjunctivae Mouth normal lips teeth and gums Neck no nodes no thyromegaly no carotid bruits Axillae no nodes Back no CVA tenderness Lungs symmetric and clear to auscultation and percussion Heart regular rate and rhythm without rub or gallop Abdomen bowel sounds positive soft nontender, no HSM, masses, or bruits. Extremities no cyanosis, clubbing, or edema Pulses 2+ equal in radial arteries Psychological not anxious or depressed Neuro alert and oriented x3 motor 5/5 cranial nerves 2-12 intact reflexes 2+ and equal in the biceps and patellar tendons cerebellar normal rapid alternating movements Results Lab Results 09/25/24 03:39 09/25/24 03:39 Lab results: Most recent lab results Calcium 8.7 mg/dL (8.4-10.2) 09/25/24 03:39 Phosphorus 4.0 mg/dL (2.5-4.5) 09/25/24 03:39 Magnesium 1.5 mg/dL (1.6-2.3) L 09/25/24 03:39
[2024-09-25] MEDS: SODIUM CHLORIDE 0.9% IV 1,000 ML 75 ML IV CONT (08:49)
[2024-09-25] MEDS: cefTRIAXone 2 GM/NS 100 ML 2 GM/100 ML BAG IVPB (08:50)
[2024-09-25] MEDS: THIAMINE HCL 200 MG/2 ML VIAL 100 MG IV PUSH (08:50)
--- NOTE | 2024-09-25 11:07 | P.PNIM_ITS ---
Progress Note: A&P Assessment and Plan (1) Acute hyponatremia: Code(s): E87.1 - Hypo-osmolality and hyponatremia Status: Acute Assessment and Plan: Admit to ICU Patient received 1 L of NS in emergency room Nephrology consult Serum osmolality, urine osmolality pending Likely multifactorial as patient with hepatic cirrhosis drinks 3 beers daily and has poor per orally intake. Serial BMP Cautious normalization of sodium 09/25/2024 Patient's sodium is 114. Nephrology on consult. Monitor closely. (2) Thrombocytopenia: Code(s): D69.6 - Thrombocytopenia, unspecified Status: Acute Assessment and Plan: Likely secondary to liver disease (3) Alcohol abuse: Code(s): F10.10 - Alcohol abuse, uncomplicated Status: Acute Assessment and Plan: CIWA protocol as needed (4) Tobacco dependence: Code(s): F17.200 - Nicotine dependence, unspecified, uncomplicated Status: Acute Assessment and Plan: Patient quit (5) Nonischemic cardiomyopathy: Code(s): I42.8 - Other cardiomyopathies Status: Acute Assessment and Plan: Continue to monitor (6) History of implantable cardioverter-defibrillator (ICD) insertion: Code(s): Z95.810 - Presence of automatic (implantable) cardiac defibrillator Status: Acute Assessment and Plan: Continue to monitor (7) Chronic obstructive pulmonary disease: Code(s): J44.9 - Chronic obstructive pulmonary disease, unspecified Status: Acute Assessment and Plan: Stable (8) Elevated troponin: Code(s): R79.89 - Other specified abnormal findings of blood chemistry Status: Acute Assessment and Plan: Minimally elevated Subjective Date/time seen: 09/25/24 11:07 Interval history: Patient was seen during the morning rounds today. Patient is oriented to place only. No shortness of breath or chest pain. No acute withdrawal noted. Review of Systems Review of Systems: Generalized weakness Exam Narrative: Laying in a stretcher Const: General: cooperative, comfortable, no acute distress, well developed, ill appearing chronically, poor hygiene, tired appearing, average body habitus and thin Nutritional Appearance: average body habitus and thin Orientation/consciousness: oriented to person and oriented to place HENMT: Head: normal to inspection, normocephalic and atraumatic Ears: hearing grossly normal bilaterally Face/Nose/Sinus: normal facial exam Face and sinus: normal facial exam Eyes: General: appearance normal, both eyes and all related structures Pupils: Equal, round and reactive pupils present EOM: EOMs intact bilaterally Neck: Neck: full ROM, no lymphadenopathy and no JVD Thyroid: thyroid normal Lymphatic: no lymphadenopathy noted Resp: Effort & Inspection: normal respiratory effort and able to speak in complete sentences Auscultation: clear to auscultation bilaterally Cardio: Jugular venous distension: no JVD Rate: regular rate Rhythm: regular rhythm Heart sounds: S1 normal heart sound present and S2 normal heart sound present : General: Yes deferred Skin: Rashes: no rashes Wounds: no wounds Neuro: General: oriented to person, oriented to place, CN's II-XI intact bilaterally and Unable to assess gait Cranial nerves: Yes CN's II-XII intact bilaterally and Yes Equal, round and reactive pupils present Cognition (Neuro): normal cognition Speech: normal speech Gait exam (Neuro): Unable to assess gait Motor exam (neuro): 5/5 motor strength present throughout Extrem: General: normal to inspection, full ROM, no joint enlargement and no pedal edema Objective Data Vital Signs Vital Signs: Vital Signs - 24 hr 09/24/24 17:22 09/24/24 19:10 09/24/24 22:12 Temperature 36.2 C L Pulse Rate 100 110 H 117 H Pulse Rate [Right Radial Palpation] Respiratory Rate 26 H 22 H Blood Pressure 99/66 L 126/95 H Pulse Oximetry 100 95 Oxygen Delivery 09/25/24 00:00 09/25/24 00:00 09/25/24 02:00 Temperature 36.5 C Pulse Rate 113 H 110 H 112 H Pulse Rate [Right Radial Palpation] Respiratory Rate 30 H Blood Pressure 98/77 L Pulse Oximetry 95 Oxygen Delivery 09/25/24 02:00 09/25/24 04:00 09/25/24 04:00 Temperature 36.7 C Pulse Rate 112 H 118 H 118 H Pulse Rate [Right Radial Palpation] Respiratory Rate 27 H 21 H 21 H Blood Pressure 111/85 122/89 Pulse Oximetry 95 97 97 Oxygen Delivery Room Air 09/25/24 04:00 09/25/24 06:00 09/25/24 06:00 Temperature Pulse Rate 119 H 113 H 113 H Pulse Rate [Right Radial Palpation] Respiratory Rate 21 H Blood Pressure 111/80 Pulse Oximetry 95 Oxygen Delivery 09/25/24 08:00 09/25/24 08:00 09/25/24 08:00 Temperature 36.3 C L Pulse Rate 121 H Pulse Rate [Right Radial Palpation] 118 H Respiratory Rate 18 Blood Pressure 115/85 115/85 Pulse Oximetry 100 Oxygen Delivery Room Air 09/25/24 08:00 09/25/24 08:35 Temperature Pulse Rate 115 H Pulse Rate [Right Radial Palpation] Respiratory Rate Blood Pressure Pulse Oximetry 99 Oxygen Delivery Room Air Intake/Output Intake/Output: Intake & Output 09/22/24 09/23/24 09/24/24 09/25/24 23:59 23:59 23:59 23:59 Intake Total 1000 Output Total 100 Balance 1000 -100 Meds/Results Medications: Active Medications Generic Name Dose Route Start Last Admin Trade Name Freq PRN Reason Stop Dose Admin Folic Acid 1 mg 09/26/24 09:00 Folic Acid 1 Mg/0.2 Ml Inj IV PUSH QAM SETH Ceftriaxone Sodium 2 gm in 100 mls @ 200 mls/hr 09/25/24 09:00 09/25/24 08:50 Rocephin 2 Gm/Ns 100 Ml IVPB 200 mls/hr Q24H SETH Administration Sodium Chloride 1,000 mls @ 75 mls/hr 09/25/24 07:55 09/25/24 08:49 Normal Saline Iv IV CONT 75 mls/hr .[id number] SETH Administration Magnesium Sulfate 2 gm in 50 mls @ 50 mls/hr 09/25/24 10:40 Magnesium Sulf 2 Gm/Water 50ml IVPB 09/25/24 11:39 ONCE ONE Lorazepam 2 mg 09/25/24 10:40 Lorazepam Inj (*Crx) 2 Mg/Ml Vial IV PUSH Q2H PRN CIWA > 15 Magnesium Oxide 400 mg 09/26/24 09:00 Magnesium Oxide 400 Mg Tablet PO DAILY SETH Ondansetron HCl 4 mg 09/25/24 10:40 Ondansetron Inj 4 Mg/2 Ml Vial IV PUSH Q6H PRN Nausea And Vomiting Thiamine HCl 100 mg 09/26/24 09:00 Thiamine Hcl 200 Mg/2 Ml Vial IV PUSH DAILY [facility] Radiology Results: ITS Impressions Chest X-Ray 09/24/24 19:43 IMPRESSION: Cardiomegaly (unchanged) with a large hiatal hernia and small bilateral pleural effusions Head CT 09/24/24 20:52 Impression: No acute intracranial hemorrhage or suspicious mass effect. Age advanced degenerative change, possibly due to microvascular ischemic disease Labs Labs: Laboratory Results - last 24 hr 09/24/24 09/24/24 09/24/24 17:19 18:27 18:58 WBC 8.8 RBC 4.12 L Hgb 13.8 L Hct 37.8 L MCV 91.7 MCH 33.5 MCHC 36.5 H RDW 12.5 Plt Count 81 L MPV 11.5 H Immature Gran % (Auto) 0.7 H Neut % (Auto) 85.4 H Lymph % (Auto) 5.2 L [place] % (Auto) 8.2 Eos % (Auto) 0.3 Baso % (Auto) 0.2 Lymph # (Auto) 0.46 L [place] # (Auto) 0.7 H Eos # (Auto) 0.0 Baso # (Auto) 0.0 Abs Immat Gran (auto) 0.06 H Absolute Neuts (auto) 7.5 H Absolute Nucleated RBC 0.000 Nucleated RBC % 0.0 Platelet Estimate Decreased Large Platelets Present Giant Platelets Present % Immature Plt Fraction 10.5 Hypochromasia 1+ Anisocytosis Macrocytosis Schistocytes None seen PT INR APTT VBG pH VBG pCO2 VBG pO2 VBG HCO3 O2 Delivery Device O2 Liters/Min FiO2 Sodium 114 L* Potassium 4.5 Chloride 86 L Carbon Dioxide 19 L Anion Gap 9 BUN 12 Creatinine 1.00 Estim Creat Clear Calc 72 Estimated GFR > 60 Glucose 124 H POC Capillary Glucose Lactic Acid Calcium 9.0 Phosphorus Magnesium Total Bilirubin 2.7 H AST 39 ALT 19 Alkaline Phosphatase 59 Ammonia Total Creatine Kinase Troponin I NT-Pro-B Natriuret Pep Total Protein 8.0 Albumin 4.4 TSH Free T4 2.12 Random Cortisol Urine Color Dark jasbir Urine Appearance Clear Urine pH 5.0 Ur Specific [place] 1.028 Urine Protein 2+ H Urine Glucose (UA) Negative Urine Ketones Trace H Ur Blood (Man) Negative Urine Nitrate Positive H Urine Bilirubin 2+ H Urine Urobilinogen 1.0 Add Ur Microanalysis Reviewed Leukocyte Esterase Rfl 1+ H Urine RBC 3-5 H Urine WBC 0-5 Ur Squamous Epith Cells Occasional Urine Bacteria None seen Urine Casts 3-5 Ur Random Sodium < 5 Nasal MRSA (PCR) Urine Opiates Screen Negative Urine Methadone Screen Negative Ur Barbiturates Screen Negative Ur Phencyclidine Scrn Negative Ur Amphetamine Screen Negative U Benzodiazepines Scrn Negative Urine Cocaine Screen Positive A U Cannabinoids Screen Negative Influenza A (RT-PCR) Influenza B (RT-PCR) RSV (RT-PCR) SARS-CoV-2 RNA (RT-PCR) 09/24/24 09/24/24 09/24/24 19:00 19:00 19:00 WBC RBC Hgb Hct MCV MCH MCHC RDW Plt Count MPV Immature Gran % (Auto) Neut % (Auto) Lymph % (Auto) [place] % (Auto) Eos % (Auto) Baso % (Auto) Lymph # (Auto) [place] # (Auto) Eos # (Auto) Baso # (Auto) Abs Immat Gran (auto) Absolute Neuts (auto) Absolute Nucleated RBC Nucleated RBC % Platelet Estimate Large Platelets Giant Platelets % Immature Plt Fraction Hypochromasia Anisocytosis Macrocytosis Schistocytes PT 17.2 H INR 1.4 APTT 32.1 VBG pH VBG pCO2 VBG pO2 VBG HCO3 O2 Delivery Device O2 Liters/Min FiO2 Sodium Potassium Chloride Carbon Dioxide Anion Gap BUN Creatinine Estim Creat Clear Calc Estimated GFR Glucose POC Capillary Glucose Lactic Acid 2.5 H Calcium Phosphorus Magnesium 1.6 Cancelled Total Bilirubin AST ALT Alkaline Phosphatase Ammonia Total Creatine Kinase 91 Troponin I 0.040 H* NT-Pro-B Natriuret Pep > 79449 H Cancelled Total Protein Albumin TSH 5.410 H Free T4 Random Cortisol Urine Color Urine Appearance Urine pH Ur Specific [place] Urine Protein Urine Glucose (UA) Urine Ketones Ur Blood (Man) Urine Nitrate Urine Bilirubin Urine Urobilinogen Add Ur Microanalysis Leukocyte Esterase Rfl Urine RBC Urine WBC Ur Squamous Epith Cells Urine Bacteria Urine Casts Ur Random Sodium Nasal MRSA (PCR) Urine Opiates Screen Urine Methadone Screen Ur Barbiturates Screen Ur Phencyclidine Scrn Ur Amphetamine Screen U Benzodiazepines Scrn Urine Cocaine Screen U Cannabinoids Screen Influenza A (RT-PCR) Negative Influenza B (RT-PCR) Negative RSV (RT-PCR) Negative SARS-CoV-2 RNA (RT-PCR) Negative 09/24/24 09/24/24 09/24/24 19:10 22:21 23:19 WBC RBC Hgb Hct MCV MCH MCHC RDW Plt Count MPV Immature Gran % (Auto) Neut % (Auto) Lymph % (Auto) [place] % (Auto) Eos % (Auto) Baso % (Auto) Lymph # (Auto) [place] # (Auto) Eos # (Auto) Baso # (Auto) Abs Immat Gran (auto) Absolute Neuts (auto) Absolute Nucleated RBC Nucleated RBC % Platelet Estimate Large Platelets Giant Platelets % Immature Plt Fraction Hypochromasia Anisocytosis Macrocytosis Schistocytes PT INR APTT VBG pH 7.397 VBG pCO2 31.7 L VBG pO2 < 27.0 L VBG HCO3 19.1 L O2 Delivery Device Not Reportable O2 Liters/Min Not Reportable FiO2 21 Sodium Potassium Chloride Carbon Dioxide Anion Gap BUN Creatinine Estim Creat Clear Calc Estimated GFR Glucose POC Capillary Glucose 125 H Lactic Acid 2.2 H Calcium Phosphorus Magnesium Total Bilirubin AST ALT Alkaline Phosphatase Ammonia Total Creatine Kinase Troponin I 0.038 H* NT-Pro-B Natriuret Pep Total Protein Albumin TSH Free T4 Random Cortisol Urine Color Urine Appearance Urine pH Ur Specific [place] Urine Protein Urine Glucose (UA) Urine Ketones Ur Blood (Man) Urine Nitrate Urine Bilirubin Urine Urobilinogen Add Ur Microanalysis Leukocyte Esterase Rfl Urine RBC Urine WBC Ur Squamous Epith Cells Urine Bacteria Urine Casts Ur Random Sodium Nasal MRSA (PCR) Urine Opiates Screen Urine Methadone Screen Ur Barbiturates Screen Ur Phencyclidine Scrn Ur Amphetamine Screen U Benzodiazepines Scrn Urine Cocaine Screen U Cannabinoids Screen Influenza A (RT-PCR) Influenza B (RT-PCR) RSV (RT-PCR) SARS-CoV-2 RNA (RT-PCR) 09/25/24 09/25/24 09/25/24 00:48 01:00 01:01 WBC RBC Hgb Hct MCV MCH MCHC RDW Plt Count MPV Immature Gran % (Auto) Neut % (Auto) Lymph % (Auto) [place] % (Auto) Eos % (Auto) Baso % (Auto) Lymph # (Auto) [place] # (Auto) Eos # (Auto) Baso # (Auto) Abs Immat Gran (auto) Absolute Neuts (auto) Absolute Nucleated RBC Nucleated RBC % Platelet Estimate Large Platelets Giant Platelets % Immature Plt Fraction Hypochromasia Anisocytosis Macrocytosis Schistocytes PT INR APTT VBG pH VBG pCO2 VBG pO2 VBG HCO3 O2 Delivery Device O2 Liters/Min FiO2 Sodium Potassium Chloride Carbon Dioxide Anion Gap BUN Creatinine Estim Creat Clear Calc Estimated GFR Glucose POC Capillary Glucose 126 H Lactic Acid Calcium Phosphorus Magnesium Total Bilirubin AST ALT Alkaline Phosphatase Ammonia Total Creatine Kinase Troponin I 0.037 H* NT-Pro-B Natriuret Pep Total Protein Albumin TSH Free T4 Random Cortisol Urine Color Urine Appearance Urine pH Ur Specific [place] Urine Protein Urine Glucose (UA) Urine Ketones Ur Blood (Man) Urine Nitrate Urine Bilirubin Urine Urobilinogen Add Ur Microanalysis Leukocyte Esterase Rfl Urine RBC Urine WBC Ur Squamous Epith Cells Urine Bacteria Urine Casts Ur Random Sodium Nasal MRSA (PCR) Not detected Urine Opiates Screen Urine Methadone Screen Ur Barbiturates Screen Ur Phencyclidine Scrn Ur Amphetamine Screen U Benzodiazepines Scrn Urine Cocaine Screen U Cannabinoids Screen Influenza A (RT-PCR) Influenza B (RT-PCR) RSV (RT-PCR) SARS-CoV-2 RNA (RT-PCR) 09/25/24 09/25/24 03:32 03:39 WBC 9.1 RBC 3.95 L Hgb 13.2 L Hct 36.2 L MCV 91.6 MCH 33.4 MCHC 36.5 H RDW 12.6 Plt Count 78 L MPV 11.5 H Immature Gran % (Auto) 0.4 Neut % (Auto) 85.6 H Lymph % (Auto) 4.4 L [place] % (Auto) 9.4 H Eos % (Auto) 0.1 Baso % (Auto) 0.1 L Lymph # (Auto) 0.40 L [place] # (Auto) 0.9 H Eos # (Auto) 0.0 Baso # (Auto) 0.0 Abs Immat Gran (auto) 0.04 H Absolute Neuts (auto) 7.8 H Absolute Nucleated RBC 0.020 H Nucleated RBC % 0.2 Platelet Estimate Decreased Large Platelets Giant Platelets % Immature Plt Fraction 10.4 Hypochromasia Anisocytosis 1+ Macrocytosis 1+ Schistocytes None seen PT INR APTT VBG pH VBG pCO2 VBG pO2 VBG HCO3 O2 Delivery Device O2 Liters/Min FiO2 Sodium 114 L* Potassium 4.8 Chloride 89 L Carbon Dioxide 14 L Anion Gap 11 BUN 14 Creatinine 0.90 Estim Creat Clear Calc 77 Estimated GFR > 60 Glucose 120 H POC Capillary Glucose Lactic Acid Calcium 8.7 Phosphorus 4.0 Magnesium 1.5 L Total Bilirubin AST ALT Alkaline Phosphatase Ammonia < 9 L Total Creatine Kinase Troponin I NT-Pro-B Natriuret Pep Total Protein Albumin TSH Free T4 Random Cortisol 46.00 Urine Color Urine Appearance Urine pH Ur Specific [place] Urine Protein Urine Glucose (UA) Urine Ketones Ur Blood (Man) Urine Nitrate Urine Bilirubin Urine Urobilinogen Add Ur Microanalysis Leukocyte Esterase Rfl Urine RBC Urine WBC Ur Squamous Epith Cells Urine Bacteria Urine Casts Ur Random Sodium Nasal MRSA (PCR) Urine Opiates Screen Urine Methadone Screen Ur Barbiturates Screen Ur Phencyclidine Scrn Ur Amphetamine Screen U Benzodiazepines Scrn Urine Cocaine Screen U Cannabinoids Screen Influenza A (RT-PCR) Influenza B (RT-PCR) RSV (RT-PCR) SARS-CoV-2 RNA (RT-PCR)
--- NOTE | 2024-09-25 11:24 | P.CONCA_ITS ---
Assessment and Plan Assessment and plan (1) Acute hyponatremia: Code(s): E87.1 - Hypo-osmolality and hyponatremia Status: Acute (2) Nonischemic cardiomyopathy: Code(s): I42.8 - Other cardiomyopathies Status: Acute (3) HTN (hypertension), benign: Code(s): I10 - Essential (primary) hypertension Status: Acute (4) Elevated troponin: Code(s): R79.89 - Other specified abnormal findings of blood chemistry Status: Acute Plan -troponin elevation -severe hyponatremia -nonischemic cardiomyopathy -AICD -alcohol and tobacco abuse In regardsto troponin elevation, minimal elevation. No ischemic changes on EKG. Suspect demand ischemia from severe hyponatremia and tachycardia. Nephrology believe that he is dehydrated and therefore started on IV fluids. If any signs of volume overload will recommend to discontinue IV fluids In regards to nonischemic cardiomyopathy, appears to be compensated. Will recommend to resume his home medications if blood pressure allows. At home seems he is on carvedilol and losartan In regards to AICD, no reported shocks. Follows up with [facility] In regards to alcohol and tobacco abuse, depressed quit. History of Present Illness History of Present Illness Consult date/time: 09/25/24 11:24 Requesting physician: Shakir Rodriguez MD Consult reason: Other (Elevated cardiac enzyme) Reason For Visit: Hyponatremia Narrative: 64-year-old male followed by [facility] Dr. Jimenes for NICM s/p ICD 2018 at [facility] and history of alcohol abuse, tobacco abuse, history of cocaine use, hepatitis-C. Patient presents to the emergency room due to generalized weakness and altered mental status with lethargy. Was found to have severe hyponatremia with initial sodium 114. Creatinine 0.9 magnesium 1.5, brain atretic peptide more than 30 K and TSH 5. Nephrology evaluation suggestive that this could be dehydration. Apparently patient did have hyponatremia in the past with sodium 120 to low 130s but not that severe hyponatremia. He has been drinking less alcohol lately. Denies chest pain, lower extremity edema, syncope, palpitations. Chest x-ray shows low small bilateral pleural effusions. EKG reviewed and analyzed myself shows, LVH, left atrial enlargement, left axis deviation, ST depression in lateral leads Review of Systems 2 Constitutional: Constitutional: Reports fatigue, Reports lethargy and Reports weakness Eyes: Eyes: Denies blurry vision Cardiovascular: Cardiovascular: Denies pedal edema and Denies leg edema Respiratory: Respiratory: Denies cough and Reports dyspnea on exertion Gastrointestinal: Gastrointestinal: Denies abdominal pain and Denies vomiting Musculoskeletal: Musculoskeletal: Denies arthralgias Integumentary/Breasts: Skin/Breast: Denies pruritus and Denies rash Neurologic: Reports confusion Psychiatric: Psychiatric: Denies behavioral changes [facility] Past Medical History Medical History Chronic obstructive pulmonary disease Alcohol abuse Hepatitis C Has yet to start treatment for such due to change in insurance. Tobacco dependence Pneumothorax At the age of 22, secondary to bleb status post right lobectomy. Nonischemic cardiomyopathy Ejection fraction was 20% in April 2018. Grade 3-4 diastolic dysfunction was also present as well as moderate pulmonary hypertension with an estimated peak RVSP of 46 mmHg. Surgical History Surgical History History of implantable cardioverter-defibrillator (ICD) insertion History of vascular surgery Repair of left femoral artery after injury. Family History Family History Mother Patient's mother is , Onset Age: 80 Father Patient's father is , Onset Age: 55 Sibling Pulmonary embolism Grandparent Brain aneurysm Social History Social History Social History: The patient lives alone in [place]. 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 He smokes about a pack of cigarettes per day and has for about 42 years. He drinks about a 12 pack of beer a day. Previous cocaine user but has not used since diagnosis of the cardiomyopathy in 2018. He designates his son, Arturo, as his surrogate decision maker and he wishes to be a. Smoking packs per day: 0.5 Smoking cigarettes per day: 10.0 Years smoked: 42 Smoking pack-years: 21.00 Smoking status: Current every day smoker Tobacco type: cigarettes Smoking end date: 10/02/17 Alcohol intake: current Drinks per week: 21 Substance use: never Substance use type: crack/cocaine Last use: 2-3 yrs ago Do You Feel Safe in your Home?: Yes Lack of Transportation: No Lack of Food: Never True Current Housing: I Have Housing Concerned About Future Housing: No Difficulty Paying Gas/Electric Bills: No Difficulty Paying for Meds: No Currently Unemployed: No Education: Trade/Vocational Certificate Difficulty w/ Childcare or Family Care: No Gender identity (if verbalized by the patient): Male Spiritual care concerns: No Meds Home Medications and Allergies Home Medications ?Medication ?Instructions ?Recorded ?Confirmed ?Type sildenafil (pulm.hypertension) 20 20 mg PO USEASDIRECTD PRN ED 06/20/20 06/22/20 History mg tablet budesonide-formoterol HFA 160 2 puff inhalation Q12HRT #10.2 06/22/20 Rx mcg-4.5 mcg/actuation aerosol grams inhaler (Symbicort) carvedilol 6.25 mg tablet (Coreg) 6.25 mg PO Q12HR #60 tabs 06/22/20 Rx cyanocobalamin (vitamin B-12) 1,000 mcg PO QAM #30 tabs 06/22/20 Rx 1,000 mcg tablet (Vitamin B-12) famotidine 20 mg tablet 20 mg PO Q12HR #60 tabs 06/22/20 Rx folic acid 1 mg tablet 1 mg PO DAILY #30 tabs 06/22/20 Rx losartan 50 mg tablet (Cozaar) 50 mg PO QAM #30 tabs 06/22/20 Rx multivitamin-iron 9 mg-folic acid 1 tablet PO QAM #30 tabs 06/22/20 Rx 400 mcg-calcium and minerals tablet (Thera M Plus (ferrous fumarate)) thiamine HCl (vitamin B1) 100 mg 100 mg PO QAM #30 tabs 06/22/20 Rx tablet (Vitamin B-1) Allergies Allergy/AdvReac Type Severity Reaction Status Date / Time No Known Allergies Allergy Verified 09/24/24 16:10 Vital Signs Vital Signs - 24 hr 09/24/24 17:22 09/24/24 19:10 09/24/24 22:12 Temperature 36.2 C L Pulse Rate 100 110 H 117 H Pulse Rate [Right Radial Palpation] Respiratory Rate 26 H 22 H Blood Pressure 99/66 L 126/95 H Pulse Oximetry 100 95 Oxygen Delivery 09/25/24 00:00 09/25/24 00:00 09/25/24 02:00 Temperature 36.5 C Pulse Rate 113 H 110 H 112 H Pulse Rate [Right Radial Palpation] Respiratory Rate 30 H Blood Pressure 98/77 L Pulse Oximetry 95 Oxygen Delivery 09/25/24 02:00 09/25/24 04:00 09/25/24 04:00 Temperature 36.7 C Pulse Rate 112 H 118 H 118 H Pulse Rate [Right Radial Palpation] Respiratory Rate 27 H 21 H 21 H Blood Pressure 111/85 122/89 Pulse Oximetry 95 97 97 Oxygen Delivery Room Air 09/25/24 04:00 09/25/24 06:00 09/25/24 06:00 Temperature Pulse Rate 119 H 113 H 113 H Pulse Rate [Right Radial Palpation] Respiratory Rate 21 H Blood Pressure 111/80 Pulse Oximetry 95 Oxygen Delivery 09/25/24 08:00 09/25/24 08:00 09/25/24 08:00 Temperature 36.3 C L Pulse Rate 121 H Pulse Rate [Right Radial Palpation] 118 H Respiratory Rate 18 Blood Pressure 115/85 115/85 Pulse Oximetry 100 Oxygen Delivery Room Air 09/25/24 08:00 09/25/24 08:35 09/25/24 10:00 Temperature Pulse Rate 115 H 119 H Pulse Rate [Right Radial Palpation] Respiratory Rate Blood Pressure Pulse Oximetry 99 Oxygen Delivery Room Air 09/25/24 10:00 Temperature Pulse Rate 119 H Pulse Rate [Right Radial Palpation] Respiratory Rate 34 H Blood Pressure 115/85 Pulse Oximetry 98 Oxygen Delivery Exam 2 Const: General: no acute distress HENMT: Face/Nose/Sinus: no epistaxis Eyes: Sclera: sclerae normal Resp: Auscultation: diminished lung sounds Cardio: Rate: tachycardic Rhythm: regular rhythm GI: GI Palp: No Tenderness to palpation present (GI) Skin: Rashes: no rashes noted Neuro: Other: Somnolent. Moves all extremities Psych: Affect: normal affect Other: Somnolent Results Labs and Meds 09/25/24 03:39 09/25/24 03:39 Lab results: Cardiac Enzymes 09/24/24 09/24/24 09/24/24 Range/Units 17:19 19:00 22:21 AST 39 (17-59) U/L Troponin I 0.040 H* 0.038 H* (0.000-0.034) ng/mL 09/25/24 Range/Units 01:00 AST (17-59) U/L Troponin I 0.037 H* (0.000-0.034) ng/mL Coagulation 09/24/24 Range/Units 19:00 PT 17.2 H (11.1-14.7) Seconds APTT 32.1 (22.3-36.8) Seconds CBC 09/24/24 09/25/24 Range/Units 17:19 03:39 WBC 8.8 9.1 (4.5-10.0) K/mm3 RBC 4.12 L 3.95 L (4.6-6.20) M/mm3 Hgb 13.8 L 13.2 L (14.0-18.0) g/dL Hct 37.8 L 36.2 L (42.0-52.0) % Plt Count 81 L 78 L (150-375) k/mm3 Lymph # (Auto) 0.46 L 0.40 L (0.9-3.2) K/mm3 [place] # (Auto) 0.7 H 0.9 H (0.1-0.6) K/mm3 Eos # (Auto) 0.0 0.0 (0-0.3) K/mm3 Baso # (Auto) 0.0 0.0 (0.0-0.1) K/mm3 Comprehensive Metabolic Panel 09/24/24 09/25/24 Range/Units 17:19 03:39 Sodium 114 L* 114 L* (137-145) mmol/L Potassium 4.5 4.8 (3.4-5.0) mmol/L Chloride 86 L 89 L (98-107) mmol/L Carbon Dioxide 19 L 14 L (22-30) mmol/L BUN 12 14 (9-20) mg/dL Creatinine 1.00 0.90 (0.7-1.3) mg/dL Glucose 124 H 120 H (65-110) mg/dL Calcium 9.0 8.7 (8.4-10.2) mg/dL AST 39 (17-59) U/L ALT 19 (6-50) U/L Alkaline Phosphatase 59 (38-126) U/L Total Protein 8.0 (6.3-8.2) g/dL Albumin 4.4 (3.5-5.1) g/dL Intake and Output 09/24/24 09/25/24 09/25/24 23:59 07:59 15:59 Intake Total 1000 Output Total 100 Balance 1000 -100 Intake: IV 1000 Sodium Chloride 0.9% IV 1,000 1000 ml @ 999 mls/hr IV CONT .Q1H1M STA Rx#:[id number] Output: Urine 100 Patient Weight 09/25/24 23:59 Weight 73 kg
[2024-09-25] MEDS: MAGNESIUM SULF 2 GM/WATER 50ML 2 GM/50 ML BAG IVPB (11:28)
[2024-09-25] MEDS: SODIUM BICARBONATE 8.4% 50 MEQ/50 ML SYRINGE IV PUSH (11:29)
[2024-09-25] MEDS: LORazepam INJ (*CRX) 2 MG/ML VIAL IV PUSH (11:47)
[2024-09-25] MEDS: FOLIC ACID 1 MG/0.2 ML INJ IV PUSH (11:47)
[2024-09-25 11:48] LABS: Sodium 114 mmol/L (137-145)
[2024-09-25 12:15] LABS: Glucose Point of Care 150 mg/dl (65-105)
--- NOTE | 2024-09-25 13:12 | WPDCNINT ---
Assessment and Plan Assessment and plan (1) Hyponatremia: Code(s): E87.1 - Hypo-osmolality and hyponatremia Status: Acute Assessment and Plan: 09/24: Patient presented with denies weakness ongoing for few weeks, worsening is weakness in the last couple of days in on day of admission at prompted him to come to the ER. In the ER patient was found to be hyponatremic with potassium of 114. Patient has had some chronic hyponatremia with sodium levels of 120 to 130s. -urine urine lytes shows prerenal picture -serum osmolality has been ordered and pending -ammonia level<9 -patient initially was not fluid restriction for his hyponatremia -hyponatremia likely multifactor: Beer potomania, dehydration, nonischemic cardiomyopathy, hyponatremia -TSH elevated -random cortisol within normal limits -CT brain did not show any mass effect of a possible microvascular ischemic disease. -TSH remains elevated at 5.4 -patient has not been eating or drinking well also. He prefers drinking be a (2) Hepatitis C: Code(s): B19.20 - Unspecified viral hepatitis C without hepatic coma Status: Acute Assessment and Plan: Related a history of liver disease/cirrhosis alcohol abuse -elevated LFTs -HCV positive with high viral titers (3) Elevated troponin: Code(s): R79.89 - Other specified abnormal findings of blood chemistry Status: Acute Assessment and Plan: Elevated troponins, no ischemia on EKG. -elevated troponin likely related to demand ischemia tachycardia hyponatremia. -continue IV fluids per Nephrology (4) Elevated LFTs: Code(s): R79.89 - Other specified abnormal findings of blood chemistry Status: Acute Assessment and Plan: IV-Q shows contracted gallbladder with wall thickening which could be from underdistention, improvement in wall thickening compared to 2018 exam. Unremarkable liver -continue to monitor LFTs (5) Chronic obstructive pulmonary disease: Code(s): J44.9 - Chronic obstructive pulmonary disease, unspecified Status: Acute Assessment and Plan: History of COPD, -will place patient on bronchodilators (6) History of implantable cardioverter-defibrillator (ICD) insertion: Code(s): Z95.810 - Presence of automatic (implantable) cardiac defibrillator Status: Acute Assessment and Plan: History of cardiac defibrillator placed in 2018 at [facility] (7) Electrolyte abnormality: Code(s): E87.8 - Other disorders of electrolyte and fluid balance, not elsewhere classified Status: Acute Assessment and Plan: Replace magnesium (8) Alcohol abuse: Code(s): F10.10 - Alcohol abuse, uncomplicated Status: Acute Assessment and Plan: Started on CIWA protocol -added folic acid and thiamine (9) Nonischemic cardiomyopathy: Code(s): I42.8 - Other cardiomyopathies Status: Acute Assessment and Plan: Nonischemic cardiomyopathy with heart failure, -appears to be compensated -appreciate cardiology following the patient, when blood pressures permit was start his medications -cautious IV fluid intake (10) Thrombocytopenia: Code(s): D69.6 - Thrombocytopenia, unspecified Status: Acute Assessment and Plan: Patient has a history of thrombocytopenia, but on this admission he is the lowest at 81 -no active acute bleeding noted will continue to monitor -transfuse as required (11) Tobacco dependence: Code(s): F17.200 - Nicotine dependence, unspecified, uncomplicated Status: Acute Assessment and Plan: Tobacco abuse, patient is a current smoker, did admitting counselor him to quit smoking. Plan DVT prophylaxis: SCD, no chemoprophylaxis secondary thrombocytopenia Stress ulcer prophylaxis: Not indicated Nutrition: Heart healthy diet Code Status: Full code Critical Care Time Spent: 49 minutes Due to a high probability of clinically significant, life threatening deterioration, the patient required my highest level of preparedness to intervene emergently and I personally spent this critical care time directly and personally managing the patient. This critical care time included obtaining a history; examining the patient; pulse oximetry; ordering and review of studies; arranging urgent treatment with development of a management plan; evaluation of patient's response to treatment; frequent reassessment; and discussions with other providers. It was exclusive of separately billable procedures and treating other patients and teaching time. Please see Assessment and Plan section and the rest of the note for further information on patient assessment and treatment This dictation may have been done utilizing a voice recognition system. Attempts have been made to correct errors. However, there may be uncorrected grammatical, spelling, and recognitions errors present. Commission Clerk Consult Note Consult date: 09/25/24 Reason for consult: Hyponatremia HPI: Arturo Martinez is a 64 year old male with past medical history of chronic obstructive pulmonary disease, alcohol abuse, hepatic cirrhosis, hepatitis-C, tobacco dependence, nonischemic cardiomyopathy with AICD, ejection fraction of 20% in April 2018, grade 3-4 diastolic dysfunction, moderate pulmonary hypertension with a RVSP of 46 mmHg presented the ED on 09/24/2024 with complains of generalized weakness that has been going on for a few weeks and has been getting worse. Patient normally drinks heavily 10-12 beers per day snehal since his weakness he is cultures. Consumption down to 3 per day patient denies any nausea, vomiting or diarrhea. Denies any shortness of breath or chest pain. In the ER patient was found to have a sodium levels of 114, potassium of 4.5, CO2 19, creatinine 1.0, glucose of 124, total bili of 2.7, LFTs are otherwise normal, high troponin was 0.040, 0.038 and 0.037. ProBNP was 77146. TSH is 5.410. Random cortisol was within normal limits. CT brain showed no acute intracranial hemorrhage or suspicious mass-effect, adrenals 80s degenerative changes possible redo microvascular ischemic disease. Chest x-ray showed cardiomegaly with a large hiatal hernia small bilateral pleural effusion. Given his potassium was 1 1 full, patient was transferred to the ICU for further management. S nephrology was consulted from the ED, recommended that the patient have fluid restriction of 1500 mL per day. Patient was transferred to the ICU for further management Patient seen and examined the ICU, is awake, alert, able to complete sentences, family at bedside updated with more information. Patient denies any chest pain, shortness of breath, abdominal pain, nausea, vomiting. Hemodynamically stable is, low urine output, afebrile. Patient is awake, alert, oriented x2. Review of Systems Review of Systems: All systems reviewed & are unremarkable except as noted in HPI and below PMFSH Past Medical History Medical History Chronic obstructive pulmonary disease Alcohol abuse Hepatitis C Has yet to start treatment for such due to change in insurance. Tobacco dependence Pneumothorax At the age of 22, secondary to bleb status post right lobectomy. Nonischemic cardiomyopathy Ejection fraction was 20% in April 2018. Grade 3-4 diastolic dysfunction was also present as well as moderate pulmonary hypertension with an estimated peak RVSP of 46 mmHg. Surgical History Surgical History History of implantable cardioverter-defibrillator (ICD) insertion History of vascular surgery Repair of left femoral artery after injury. Family History Family History Mother Patient's mother is , Onset Age: 80 Father Patient's father is , Onset Age: 55 Sibling Pulmonary embolism Grandparent Brain aneurysm Social History Social History Social History: The patient lives alone in [place]. 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 He smokes about a pack of cigarettes per day and has for about 42 years. He drinks about a 12 pack of beer a day. Previous cocaine user but has not used since diagnosis of the cardiomyopathy in 2018. He designates his son, Arturo, as his surrogate decision maker and he wishes to be a. Smoking packs per day: 0.5 Smoking cigarettes per day: 10.0 Years smoked: 42 Smoking pack-years: 21.00 Smoking status: Current every day smoker Tobacco type: cigarettes Smoking end date: 10/02/17 Alcohol intake: current Drinks per week: 21 Substance use: never Substance use type: crack/cocaine Last use: 2-3 yrs ago Do You Feel Safe in your Home?: Yes Lack of Transportation: No Lack of Food: Never True Current Housing: I Have Housing Concerned About Future Housing: No Difficulty Paying Gas/Electric Bills: No Difficulty Paying for Meds: No Currently Unemployed: No Education: Trade/Vocational Certificate Difficulty w/ Childcare or Family Care: No Gender identity (if verbalized by the patient): Male Spiritual care concerns: No Meds Home Medications and Allergies Home Medications ?Medication ?Instructions ?Recorded ?Confirmed ?Type sildenafil (pulm.hypertension) 20 20 mg PO USEASDIRECTD PRN ED 06/20/20 06/22/20 History mg tablet budesonide-formoterol HFA 160 2 puff inhalation Q12HRT #10.2 06/22/20 Rx mcg-4.5 mcg/actuation aerosol grams inhaler (Symbicort) carvedilol 6.25 mg tablet (Coreg) 6.25 mg PO Q12HR #60 tabs 06/22/20 Rx cyanocobalamin (vitamin B-12) 1,000 mcg PO QAM #30 tabs 06/22/20 Rx 1,000 mcg tablet (Vitamin B-12) famotidine 20 mg tablet 20 mg PO Q12HR #60 tabs 06/22/20 Rx folic acid 1 mg tablet 1 mg PO DAILY #30 tabs 06/22/20 Rx losartan 50 mg tablet (Cozaar) 50 mg PO QAM #30 tabs 06/22/20 Rx multivitamin-iron 9 mg-folic acid 1 tablet PO QAM #30 tabs 06/22/20 Rx 400 mcg-calcium and minerals tablet (Thera M Plus (ferrous fumarate)) thiamine HCl (vitamin B1) 100 mg 100 mg PO QAM #30 tabs 06/22/20 Rx tablet (Vitamin B-1) Allergies Allergy/AdvReac Type Severity Reaction Status Date / Time No Known Allergies Allergy Verified 09/24/24 16:10 Vital Signs Vital Signs - 24 hr 09/24/24 17:22 09/24/24 19:10 09/24/24 22:12 Temperature 97.1 F L Pulse Rate 100 110 H 117 H Pulse Rate [Bilateral Radial Palpation] Pulse Rate [Right Radial Palpation] Respiratory Rate 26 H 22 H Blood Pressure 99/66 L 126/95 H Pulse Oximetry 100 95 Oxygen Delivery 09/25/24 00:00 09/25/24 00:00 09/25/24 02:00 Temperature 97.7 F Pulse Rate 113 H 110 H 112 H Pulse Rate [Bilateral Radial Palpation] Pulse Rate [Right Radial Palpation] Respiratory Rate 30 H Blood Pressure 98/77 L Pulse Oximetry 95 Oxygen Delivery 09/25/24 02:00 09/25/24 04:00 09/25/24 04:00 Temperature 98.1 F Pulse Rate 112 H 118 H 118 H Pulse Rate [Bilateral Radial Palpation] Pulse Rate [Right Radial Palpation] Respiratory Rate 27 H 21 H 21 H Blood Pressure 111/85 122/89 Pulse Oximetry 95 97 97 Oxygen Delivery Room Air 09/25/24 04:00 09/25/24 06:00 09/25/24 06:00 Temperature Pulse Rate 119 H 113 H 113 H Pulse Rate [Bilateral Radial Palpation] Pulse Rate [Right Radial Palpation] Respiratory Rate 21 H Blood Pressure 111/80 Pulse Oximetry 95 Oxygen Delivery 09/25/24 08:00 09/25/24 08:00 09/25/24 08:00 Temperature 97.3 F L Pulse Rate 121 H Pulse Rate [Bilateral Radial Palpation] Pulse Rate [Right Radial Palpation] 118 H Respiratory Rate 18 Blood Pressure 115/85 115/85 Pulse Oximetry 100 Oxygen Delivery Room Air 09/25/24 08:00 09/25/24 08:35 09/25/24 10:00 Temperature Pulse Rate 115 H 119 H Pulse Rate [Bilateral Radial Palpation] Pulse Rate [Right Radial Palpation] Respiratory Rate Blood Pressure Pulse Oximetry 99 Oxygen Delivery Room Air 09/25/24 10:00 09/25/24 11:07 09/25/24 12:00 Temperature 97.2 F L Pulse Rate 119 H 116 H Pulse Rate [Bilateral Radial Palpation] 119 H Pulse Rate [Right Radial Palpation] Respiratory Rate 34 H 18 Blood Pressure 115/85 121/82 103/76 Pulse Oximetry 98 90 Oxygen Delivery 09/25/24 12:00 09/25/24 12:00 Temperature Pulse Rate 120 H 109 H Pulse Rate [Bilateral Radial Palpation] Pulse Rate [Right Radial Palpation] Respiratory Rate Blood Pressure Pulse Oximetry 96 Oxygen Delivery Room Air Exam Narrative: General: Pleasant gentleman in no acute distress HEENT:? Pupils equal and reactive, sclerae is icteric Neck:? Supple Respiratory:? Clear to auscultation bilaterally, decreased at bases, adequate air entry Cardiac:? S1-S2 normal, regular rate and rhythm Abdomen:? Is soft, nontender, nondistended, normoactive bowel sound Extremities:? Palpable pedal pulses, trace edema Neuro:? Patient is awake, alert, oriented x2, nonfocal Skin:? No lesions noted Psych:? Normal affect and mentation, pleasantly confused Results Labs 09/25/24 03:39 09/25/24 11:33 Labs: Short CBC 09/24/24 09/25/24 Range/Units 17:19 03:39 WBC 8.8 9.1 (4.5-10.0) K/mm3 Hgb 13.8 L 13.2 L (14.0-18.0) g/dL Hct 37.8 L 36.2 L (42.0-52.0) % Plt Count 81 L 78 L (150-375) k/mm3 BMP 09/24/24 09/25/24 09/25/24 17:19 03:39 11:33 Sodium 114 L* 114 L* 114 L* Potassium 4.5 4.8 Chloride 86 L 89 L Carbon Dioxide 19 L 14 L BUN 12 14 Creatinine 1.00 0.90 Glucose 124 H 120 H Calcium 9.0 8.7 Cardiac Enzymes 09/24/24 09/24/24 09/25/24 Range/Units 19:00 22:21 01:00 Total Creatine Kinase 91 (55-170) U/L Troponin I 0.040 H* 0.038 H* 0.037 H* (0.000-0.034) ng/mL Liver Function 09/24/24 Range/Units 17:19 Total Bilirubin 2.7 H (0.2-1.3) mg/dL AST 39 (17-59) U/L ALT 19 (6-50) U/L Alkaline Phosphatase 59 (38-126) U/L Albumin 4.4 (3.5-5.1) g/dL Urine 09/24/24 Range/Units 18:27 Urine Color Dark jasbir (Yellow) Urine Appearance Clear (Clear) Urine pH 5.0 (5.0-9.0) Ur Specific [place] 1.028 (1.001-1.035) Urine Protein 2+ H (Negative) mg/dL Urine Glucose (UA) Negative (Negative) mg/dL Quality VTE Prophylaxis VTE prophylaxis: mechanical ordered If No VTE Prophylaxis Answer both mechanical and pharmacologic: Reason no pharmacologic proph: medical contraindication thrombocytopenia Hospitalist MIPS Advance Care Plan I have confirmed that the patient's Advanced Care Plan is present, code status is documented, or surrogate decision maker is listed in patient medical record.: Yes Medication Reconciliation I have utilized all available resources to obtain, update and review the patients current medications (includes all prescriptions, OTC, herbals, cannabis, and nutritional supplements).: Yes
--- NOTE | 2024-09-25 13:29 | ADMGEN ---
This patient, Arturo Martinez, was admitted to Intensive Care Unit-7. Patient/family oriented to hospital policies and general routines including ID bracelet, bed and alarms, visiting hours, pain management, procedures, bathroom and other care routines, personal items, smoking policy, room service/diet, and visiting hours. Report from [facility], fluids running, glasses on , tele connected Information on how to activate the Rapid Response Team has been discussed. Patient/Family are encouraged to report perceived risks to care and to ask questions if they do not understand what they are told or what they should do.
--- NOTE | 2024-09-25 14:08 | PC.NURSE ---
son is here with pt, he is unaware of when the pt last took any home meds or if he is still currently taking anything, reports he knows his father was non compliant with them previously
[2024-09-25] MEDS: IPRATROPIUM 0.5 MG/ALBUTEROL SULFATE 2.5 MG AMPUL.NEB 3 ML INHALATION ×2 (14:46→19:26)
[2024-09-25 18:42] LABS: Glucose Point of Care 147 mg/dl (65-105)
[2024-09-25 20:10] LABS: Sodium 113 mmol/L (137-145)
[2024-09-25] MEDS: SODIUM CHLORIDE 3% 280 ML 35 ML IV CONT (22:29)
[2024-09-26] VITALS (23 sets, daily range): BP systolic 99–143; BP diastolic 61–110; PULSE 61–131; RESP 18–60; TEMP 36.8–37.7; O2SAT 90–99
[2024-09-26] MEDS: IPRATROPIUM 0.5 MG/ALBUTEROL SULFATE 2.5 MG AMPUL.NEB 3 ML INHALATION ×4 (02:34→20:22)
[2024-09-26] MEDS: LORazepam INJ (*CRX) 2 MG/ML VIAL IV PUSH ×5 (04:14→13:54)
[2024-09-26 04:42] LABS: Glucose Point of Care 143 mg/dl (65-105)
[2024-09-26 06:10] LABS: Basophils Percent Auto 0.1 % (0.2-1.2); Hematocrit 37.1 % (42.0-52.0); Immature Granulocyte Absolute 0.07 K/mm3 (0.00-0.031); Immature Granulocyte Percent A 0.7 % (0-0.5); Immature Platelet Fraction Pct 9.6 % (0.9-11.2); Lymphocytes Absolute Auto 0.33 K/mm3 (0.9-3.2); Lymphocytes Percent Auto 3.1 % (18.3-44.2); Mean Corpuscular Hemoglobin 33.1 pg (26-34); Mean Corpuscular Volume 94.4 fl (80-100); Mean Platelet Volume 11.8 fl (7.4-10.4); Monocytes Percent Auto 9.4 % (2.6-8.5); Neutrophils Absolute Auto 9.2 K/mm3 (1.3-6.7); Neutrophils Percent Auto 86.7 % (45.5-73.1); Nucleated Red Blood Cells Perc 0.2 % (0.0-0.2); Platelet Count Result 84 k/mm3 (150-375); Red Blood Count 3.93 M/mm3 (4.6-6.20); Red Cell Distribution Width 12.8 % (11.5-14.5); White Blood Count 10.6 K/mm3 (4.5-10.0)
[2024-09-26 06:19] LABS: Magnesium 2.2 mg/dL (1.6-2.3)
[2024-09-26 06:21] LABS: Alanine Aminotransferase 32 U/L (6-50); Albumin Level 3.9 g/dL (3.5-5.1); Alkaline Phosphatase 67 U/L (38-126); Anion Gap 10 mmol/L (4-12); Aspartate Amino Transferase 97 U/L (17-59); Bilirubin,Total 2.6 mg/dL (0.2-1.3); Blood Urea Nitrogen 21 mg/dL (9-20); Calcium 8.8 mg/dL (8.4-10.2); Carbon Dioxide 17 mmol/L (22-30); Chloride 95 mmol/L (98-107); Estimated CRCL calculation 55 ml/min; Estimated Glomerular Filt Rate 56; Glucose 130 mg/dL (65-110); Potassium 4.8 mmol/L (3.4-5.0); Sodium 122 mmol/L (137-145)
[2024-09-26 06:38] LABS: Anisocytosis 1+; Burr Cells 2+; Giant Platelets Present; Platelet Estimate Decreased (Adequate); Schistocytes None Seen; Troponin I 0.053 ng/mL (0.000-0.034)
[2024-09-26] MEDS: SODIUM CHLORIDE 0.9% IV 1,000 ML 75 ML IV CONT (08:10)
[2024-09-26] MEDS: cefTRIAXone 2 GM/NS 100 ML 2 GM/100 ML BAG IVPB (08:23)
--- NOTE | 2024-09-26 09:26 | P.PNNP_ITS ---
Progress Note: A&P Assessment and Plan (1) Hyponatremia: Code(s): E87.1 - Hypo-osmolality and hyponatremia Status: Acute Assessment and Plan: The patient has a low sodium. The patient has had low sodiums dating back to 2018. Generally they run in the high 120s and low 130s. He has never had evaluation for this Evaluation: Urine sodium was less than 5 (and his urine sodium is usually low dating back to 2018), but we do not have a urine creatinine. Urine specific gravity was 1.028. This essentially rules out beer drinkers potomania. Osmolality values are pending CT brain shows no mass effect, however possible microvascular ischemic disease Chest x-ray shows cardiomegaly and bilateral pleural effusion TSH is slightly high at 5.4. Cortisol is 46. SPEP is pending He has chronic hyponatremia possibly related to his drinking or possibly just idiopathic. He could also be chronically pre renal because of his bad heart. It is worse now. Most likely due to dehydration. For the 1st 24 hours, because I feared over-correction, we just gave IV fluid and a fluid restriction. The sodium did not budge. So last evening I gave him hypertonic saline enough to correct his sodium by 4. So since he was 114 it should have corrected to about 118 but his sodium actually corrected to 122. Possibly he is sweating more with his withdrawals, contributing to correcting the sodium Will give him some hypotonic saline to slow down the correction. He does not have far to go since his baseline is 128-132. Check another sodium at noon (2) HTN (hypertension), benign: Code(s): I10 - Essential (primary) hypertension Status: Acute Assessment and Plan: Blood pressure is under good control (3) Chronic obstructive pulmonary disease: Code(s): J44.9 - Chronic obstructive pulmonary disease, unspecified Status: Acute Assessment and Plan: Getting supportive care (4) Alcohol abuse: Code(s): F10.10 - Alcohol abuse, uncomplicated Status: Acute Assessment and Plan: Encourage to stop (5) Hepatitis C: Code(s): B19.20 - Unspecified viral hepatitis C without hepatic coma Status: Acute Assessment and Plan: Liver enzymes are okay (6) Tobacco dependence: Code(s): F17.200 - Nicotine dependence, unspecified, uncomplicated Status: Acute Assessment and Plan: Encourage to stop (7) Nonischemic cardiomyopathy: Code(s): I42.8 - Other cardiomyopathies Status: Acute Assessment and Plan: Getting supportive care Subjective Date/time seen: 09/26/24 09:26 Interval history: Patient lying in bed. He is anxious, sweaty. It looks like withdrawals are affecting him significantly. Exam Narrative: WDWN anxious male lying in the hospital bed. skin no rash head ncat lungs few crackles on the right. cor reg no rub abd BS+ nontender and soft ext no edema. Objective Data Vital Signs Vital Signs: Vital Signs - 24 hr 09/25/24 10:00 09/25/24 10:00 09/25/24 11:07 Temperature Pulse Rate 119 H 119 H Pulse Rate [Bilateral Radial Palpation] 119 H Respiratory Rate 34 H Blood Pressure 115/85 121/82 Pulse Oximetry 98 Oxygen Delivery Oxygen Flow Rate 09/25/24 12:00 09/25/24 12:00 09/25/24 12:00 Temperature 97.2 F L Pulse Rate 116 H 120 H 109 H Pulse Rate [Bilateral Radial Palpation] Respiratory Rate 18 Blood Pressure 103/76 Pulse Oximetry 90 96 Oxygen Delivery Room Air Oxygen Flow Rate 09/25/24 13:51 09/25/24 14:00 09/25/24 14:47 Temperature 97.6 F Pulse Rate 117 H 112 H 102 H Pulse Rate [Bilateral Radial Palpation] Respiratory Rate 24 H 20 Blood Pressure 114/82 Pulse Oximetry 98 Oxygen Delivery Oxygen Flow Rate 09/25/24 14:53 09/25/24 15:44 09/25/24 16:00 Temperature 97.7 F Pulse Rate 110 H 115 H Pulse Rate [Bilateral Radial Palpation] 114 H Respiratory Rate 20 24 H Blood Pressure 103/69 Pulse Oximetry 100 Oxygen Delivery Oxygen Flow Rate 09/25/24 16:00 09/25/24 18:00 09/25/24 19:30 Temperature Pulse Rate 108 H 115 H 117 H Pulse Rate [Bilateral Radial Palpation] Respiratory Rate 18 Blood Pressure Pulse Oximetry Oxygen Delivery Oxygen Flow Rate 09/25/24 19:30 09/25/24 19:36 09/25/24 20:00 Temperature Pulse Rate 120 H Pulse Rate [Bilateral Radial Palpation] Respiratory Rate 18 Blood Pressure Pulse Oximetry 95 94 Oxygen Delivery Nasal Cannula Nasal Cannula Oxygen Flow Rate 2 2 09/25/24 20:00 09/25/24 20:24 09/25/24 22:00 Temperature 98.1 F Pulse Rate 113 H 117 H 123 H Pulse Rate [Bilateral Radial Palpation] Respiratory Rate 20 Blood Pressure 115/75 Pulse Oximetry 99 Oxygen Delivery Oxygen Flow Rate 09/26/24 00:00 09/26/24 00:00 09/26/24 00:03 Temperature 98.3 F Pulse Rate 124 H 122 H Pulse Rate [Bilateral Radial Palpation] Respiratory Rate 20 Blood Pressure 118/79 Pulse Oximetry 95 90 Oxygen Delivery Nasal Cannula Oxygen Flow Rate 2 09/26/24 02:00 09/26/24 02:35 09/26/24 02:45 Temperature Pulse Rate 123 H 119 H 119 H Pulse Rate [Bilateral Radial Palpation] Respiratory Rate 18 18 Blood Pressure Pulse Oximetry Oxygen Delivery Oxygen Flow Rate 09/26/24 03:25 09/26/24 04:00 09/26/24 04:00 Temperature 98.6 F Pulse Rate 125 H 127 H Pulse Rate [Bilateral Radial Palpation] Respiratory Rate 23 H Blood Pressure 113/80 Pulse Oximetry 99 95 Oxygen Delivery Nasal Cannula Oxygen Flow Rate 2 09/26/24 06:00 09/26/24 08:00 09/26/24 08:00 Temperature 98.8 F Pulse Rate 131 H 124 H Pulse Rate [Bilateral Radial Palpation] 124 H Respiratory Rate 28 H Blood Pressure 104/61 Pulse Oximetry 95 Oxygen Delivery Oxygen Flow Rate Intake/Output Intake/Output: Intake & Output 09/23/24 09/24/24 09/25/24 09/26/24 23:59 23:59 23:59 23:59 Intake Total 1000 1390 Output Total 100 Balance 1000 1290 Meds/Results Medications: Active Medications Generic Name Dose Route Start Last Admin Trade Name Freq PRN Reason Stop Dose Admin Albuterol/Ipratropium 3 ml 09/25/24 14:00 09/26/24 08:02 Ipratropium 0.5 Mg/Albuterol Sulfate 2.5 Mg Ampul.Neb 3 Ml INHALATION 3 ml Q6HRT [facility] Administration Chlordiazepoxide HCl 25 mg 09/26/24 09:00 09/26/24 09:17 Chlordiazepoxide (*Crx) 25 Mg Capsule PO Not Given Q8H [facility] Folic Acid 1 mg 09/26/24 09:00 Folic Acid 1 Mg/0.2 Ml Inj IV PUSH QAM [facility] Ceftriaxone Sodium 2 gm in 100 mls @ 200 mls/hr 09/25/24 09:00 09/26/24 08:23 Rocephin 2 Gm/Ns 100 Ml IVPB 100 mls/hr Q24H SETH Administration Sodium Chloride 1,000 mls @ 75 mls/hr 09/25/24 07:55 09/26/24 08:10 Normal Saline Iv IV CONT 75 mls/hr .[id number] SETH Administration Lorazepam 2 mg 09/25/24 10:40 09/26/24 08:22 Lorazepam Inj (*Crx) 2 Mg/Ml Vial IV PUSH 2 mg Q2H PRN Administration CIWA > 15 Magnesium Oxide 400 mg 09/25/24 09:00 09/26/24 09:18 Magnesium Oxide 400 Mg Tablet PO Not Given DAILY SETH Ondansetron HCl 4 mg 09/25/24 10:40 Ondansetron Inj 4 Mg/2 Ml Vial IV PUSH Q6H PRN Nausea And Vomiting Thiamine HCl 100 mg 09/26/24 09:00 Thiamine Hcl 200 Mg/2 Ml Vial IV PUSH DAILY [facility] Radiology Results: ITS Impressions Chest X-Ray 09/24/24 19:43 IMPRESSION: Cardiomegaly (unchanged) with a large hiatal hernia and small bilateral pleural effusions Head CT 09/24/24 20:52 Impression: No acute intracranial hemorrhage or suspicious mass effect. Age advanced degenerative change, possibly due to microvascular ischemic disease Labs Labs: Laboratory Results - last 24 hr 09/25/24 09/25/24 09/25/24 11:33 12:10 18:22 WBC RBC Hgb Hct MCV MCH MCHC RDW Plt Count MPV Immature Gran % (Auto) Neut % (Auto) Lymph % (Auto) [place] % (Auto) Eos % (Auto) Baso % (Auto) Lymph # (Auto) [place] # (Auto) Eos # (Auto) Baso # (Auto) Abs Immat Gran (auto) Absolute Neuts (auto) Absolute Nucleated RBC Nucleated RBC % Platelet Estimate Giant Platelets % Immature Plt Fraction Anisocytosis Martín Cells Schistocytes Sodium 114 L* Potassium Chloride Carbon Dioxide Anion Gap BUN Creatinine Estim Creat Clear Calc Estimated GFR Glucose POC Capillary Glucose 150 H 147 H Calcium Magnesium Total Bilirubin AST ALT Alkaline Phosphatase Troponin I Total Protein Albumin 09/25/24 09/26/24 09/26/24 19:39 00:05 05:54 WBC 10.6 H RBC 3.93 L Hgb 13.0 L Hct 37.1 L MCV 94.4 MCH 33.1 MCHC 35.0 RDW 12.8 Plt Count 84 L MPV 11.8 H Immature Gran % (Auto) 0.7 H Neut % (Auto) 86.7 H Lymph % (Auto) 3.1 L [place] % (Auto) 9.4 H Eos % (Auto) 0.0 Baso % (Auto) 0.1 L Lymph # (Auto) 0.33 L [place] # (Auto) 1.0 H Eos # (Auto) 0.0 Baso # (Auto) 0.0 Abs Immat Gran (auto) 0.07 H Absolute Neuts (auto) 9.2 H Absolute Nucleated RBC 0.020 H Nucleated RBC % 0.2 Platelet Estimate Decreased Giant Platelets Present % Immature Plt Fraction 9.6 Anisocytosis 1+ [place] Cells 2+ Schistocytes None seen Sodium 113 L* 122 L Potassium 4.8 Chloride 95 L Carbon Dioxide 17 L Anion Gap 10 BUN 21 H Creatinine 1.30 Estim Creat Clear Calc 55 Estimated GFR 56 L Glucose 130 H POC Capillary Glucose 143 H Calcium 8.8 Magnesium 2.2 Total Bilirubin 2.6 H AST 97 H ALT 32 Alkaline Phosphatase 67 Troponin I 0.053 H* Total Protein 7.0 Albumin 3.9
--- NOTE | 2024-09-26 09:52 | PC.NURSE ---
Pt tachypnic with a respitratoy rate of 40. Tachycardic, HR 128. Last CIWA score 20, given Ativan 2 mg IV push. Unable to give patient Librium, too disoriented and unable to follow commands. Called Raphael Mastersno [employer] and updated with above info. He will be coming to see pt shortly
[2024-09-26] MEDS: SODIUM CHLORIDE 0.45% 1,000 ML 75 ML IV CONT ×2 (10:29→17:07)
--- NOTE | 2024-09-26 10:46 | P.PNIM_ITS ---
Progress Note: A&P Assessment and Plan (1) Hyponatremia: Code(s): E87.1 - Hypo-osmolality and hyponatremia Status: Acute Assessment and Plan: 09/24: Presented with weakness ongoing for few weeks, worsening is weakness in the last couple of days in on day of admission at prompted him to come to the ER. - Hyponatremic with sodium 114 on admission. - Improving with gentle hydration and nephrology following. -hyponatremia likely multifactor: Beer potomania, dehydration, nonischemic cardiomyopathy, poor PO intake. - Hx of chronic hyponatremia with non-ischemic cardiomyopathy, sodium levels trending 120-130's previously. - Urine urine lytes shows prerenal picture -serum osmolality has been ordered and pending -ammonia level<9 -TSH elevated -random cortisol within normal limits. -CT brain did not show any mass effect of a possible microvascular ischemic disease. -TSH remains elevated at 5.4 (2) Hepatitis C: Code(s): B19.20 - Unspecified viral hepatitis C without hepatic coma Status: Acute Assessment and Plan: Related a history of liver disease/cirrhosis alcohol abuse -elevated LFTs -HCV positive with high viral titers. - Hasn't received treatment yet due to alcoholism. (3) Elevated troponin: Code(s): R79.89 - Other specified abnormal findings of blood chemistry Status: Acute Assessment and Plan: - No acute ischemia EKG changes. - Likely related to demand ischemia secondary to alcohol withdrawal. -continue telemetry monitoring. (4) Elevated LFTs: Code(s): R79.89 - Other specified abnormal findings of blood chemistry Status: Acute Assessment and Plan: - Likely related to alcohol abuse. -continue to monitor trend. (5) Chronic obstructive pulmonary disease: Code(s): J44.9 - Chronic obstructive pulmonary disease, unspecified Status: Acute Assessment and Plan: - Appears compensated. - Bronchodilators PRN. (6) History of implantable cardioverter-defibrillator (ICD) insertion: Code(s): Z95.810 - Presence of automatic (implantable) cardiac defibrillator Status: Acute Assessment and Plan: - Stable. - Continue tele monitoring with alcohol withdrawal. (7) Electrolyte abnormality: Code(s): E87.8 - Other disorders of electrolyte and fluid balance, not elsewhere classif ied Status: Acute Assessment and Plan: Replace electrolytes as needed. (8) Alcohol abuse: Code(s): F10.10 - Alcohol abuse, uncomplicated Status: Acute Assessment and Plan: - Continue CIWA protocol - Continue folic acid and thiamine (9) Nonischemic cardiomyopathy: Code(s): I42.8 - Other cardiomyopathies Status: Acute Assessment and Plan: - Appears stable. - Resume Losartan and Coreg with diet. -caution with IV fluids. (10) Thrombocytopenia: Code(s): D69.6 - Thrombocytopenia, unspecified Status: Acute Assessment and Plan: - Likely related to alcohol abuse. - No obvious signs of bleeding noted. - Monitor for bleeding signs. (11) Tobacco dependence: Code(s): F17.200 - Nicotine dependence, unspecified, uncomplicated Status: Acute Assessment and Plan: - Encourage with cessation. - Nicotine patch PRN. Plan DVT prophylaxis: SCD Stress ulcer prophylaxis: Not indicated Nutrition: Heart healthy diet Code Status: Full code Time Spent With Patient Time with patient: 15 - 25 minutes Subjective Date/time seen: 09/26/24 10:46 Patient confused and non-verbal currently. Interval history: Patient confused and restless on bedrest, non-verbal for now. Review of Systems Review of Systems: Generalized weakness ROS unobtainable: Yes unobtainable due to mental status Exam Narrative: General: Confused and non-verbal on bedrest. HEENT:? Pupils equal and reactive, sclerae is icteric Neck:? Supple Respiratory:? Clear to auscultation bilaterally, Cardiac:? Tachycardia, no murmurs. Abdomen:? Is soft, nontender, nondistended, +ve bowel sound X4 quadrants. Extremities:? Palpable pedal pulses, trace cristina. LE edema. Neuro:? Patient is awake and confused. Skin:? No lesions noted Psych:? Very confused on bedrest. Objective Data Vital Signs Vital Signs: Vital Signs - 24 hr 09/25/24 11:07 09/25/24 12:00 09/25/24 12:00 Temperature 97.2 F L Pulse Rate 116 H 120 H Pulse Rate [Bilateral Radial Palpation] 119 H Respiratory Rate 18 Blood Pressure 121/82 103/76 Pulse Oximetry 90 Oxygen Delivery Oxygen Flow Rate 09/25/24 12:00 09/25/24 13:51 09/25/24 14:00 Temperature 97.6 F Pulse Rate 109 H 117 H 112 H Pulse Rate [Bilateral Radial Palpation] Respiratory Rate 24 H Blood Pressure 114/82 Pulse Oximetry 96 98 Oxygen Delivery Room Air Oxygen Flow Rate 09/25/24 14:47 09/25/24 14:53 09/25/24 15:44 Temperature Pulse Rate 102 H 110 H Pulse Rate [Bilateral Radial Palpation] 114 H Respiratory Rate 20 20 Blood Pressure Pulse Oximetry Oxygen Delivery Oxygen Flow Rate 09/25/24 16:00 09/25/24 16:00 09/25/24 18:00 Temperature 97.7 F Pulse Rate 115 H 108 H 115 H Pulse Rate [Bilateral Radial Palpation] Respiratory Rate 24 H Blood Pressure 103/69 Pulse Oximetry 100 Oxygen Delivery Oxygen Flow Rate 09/25/24 19:30 09/25/24 19:30 09/25/24 19:36 Temperature Pulse Rate 117 H 120 H Pulse Rate [Bilateral Radial Palpation] Respiratory Rate 18 18 Blood Pressure Pulse Oximetry 95 Oxygen Delivery Nasal Cannula Oxygen Flow Rate 2 09/25/24 20:00 09/25/24 20:00 09/25/24 20:24 Temperature 98.1 F Pulse Rate 113 H 117 H Pulse Rate [Bilateral Radial Palpation] Respiratory Rate 20 Blood Pressure 115/75 Pulse Oximetry 94 99 Oxygen Delivery Nasal Cannula Oxygen Flow Rate 2 09/25/24 22:00 09/26/24 00:00 09/26/24 00:00 Temperature Pulse Rate 123 H 124 H Pulse Rate [Bilateral Radial Palpation] Respiratory Rate Blood Pressure Pulse Oximetry 95 Oxygen Delivery Nasal Cannula Oxygen Flow Rate 2 09/26/24 00:03 09/26/24 02:00 09/26/24 02:35 Temperature 98.3 F Pulse Rate 122 H 123 H 119 H Pulse Rate [Bilateral Radial Palpation] Respiratory Rate 20 18 Blood Pressure 118/79 Pulse Oximetry 90 Oxygen Delivery Oxygen Flow Rate 09/26/24 02:45 09/26/24 03:25 09/26/24 04:00 Temperature 98.6 F Pulse Rate 119 H 125 H Pulse Rate [Bilateral Radial Palpation] Respiratory Rate 18 23 H Blood Pressure 113/80 Pulse Oximetry 99 95 Oxygen Delivery Nasal Cannula Oxygen Flow Rate 2 09/26/24 04:00 09/26/24 06:00 09/26/24 08:00 Temperature Pulse Rate 127 H 131 H Pulse Rate [Bilateral Radial Palpation] 124 H Respiratory Rate Blood Pressure Pulse Oximetry Oxygen Delivery Oxygen Flow Rate 09/26/24 08:00 09/26/24 08:00 09/26/24 08:00 Temperature 98.8 F Pulse Rate 124 H 103 H 130 H Pulse Rate [Bilateral Radial Palpation] Respiratory Rate 28 H 20 20 Blood Pressure 104/61 Pulse Oximetry 95 91 Oxygen Delivery Nasal Cannula Oxygen Flow Rate 2 09/26/24 08:00 09/26/24 08:00 09/26/24 09:35 Temperature Pulse Rate 128 H 128 H Pulse Rate [Bilateral Radial Palpation] Respiratory Rate 60 H Blood Pressure Pulse Oximetry 91 95 Oxygen Delivery Nasal Cannula Oxygen Flow Rate 2 09/26/24 09:51 Temperature Pulse Rate Pulse Rate [Bilateral Radial Palpation] Respiratory Rate Blood Pressure 143/110 H Pulse Oximetry Oxygen Delivery Oxygen Flow Rate Intake/Output Intake/Output: Intake & Output 09/23/24 09/24/24 09/25/24 09/26/24 23:59 23:59 23:59 23:59 Intake Total 1000 1390 0 Output Total 100 Balance 1000 1290 0 Meds/Results Medications: Active Medications Generic Name Dose Route Start Last Admin Trade Name Freq PRN Reason Stop Dose Admin Albuterol/Ipratropium 3 ml 09/25/24 14:00 09/26/24 08:02 Ipratropium 0.5 Mg/Albuterol Sulfate 2.5 Mg Ampul.Neb 3 Ml INHALATION 3 ml Q6HRT SETH Administration Chlordiazepoxide HCl 25 mg 09/26/24 09:00 09/26/24 09:17 Chlordiazepoxide (*Crx) 25 Mg Capsule PO Not Given Q8H [facility] Folic Acid 1 mg 09/26/24 09:00 Folic Acid 1 Mg/0.2 Ml Inj IV PUSH QAM [facility] Ceftriaxone Sodium 2 gm in 100 mls @ 200 mls/hr 09/25/24 09:00 09/26/24 08:23 Rocephin 2 Gm/Ns 100 Ml IVPB 100 mls/hr Q24H SETH Administration Sodium Chloride 1,000 mls @ 75 mls/hr 09/26/24 09:40 09/26/24 10:29 Sodium Chloride 0.45% IV CONT 75 mls/hr .[id number] SETH Administration Lorazepam 2 mg 09/25/24 10:40 09/26/24 10:24 Lorazepam Inj (*Crx) 2 Mg/Ml Vial IV PUSH 2 mg Q2H PRN Administration CIWA > 15 Magnesium Oxide 400 mg 09/25/24 09:00 09/26/24 09:18 Magnesium Oxide 400 Mg Tablet PO Not Given DAILY [facility] Ondansetron HCl 4 mg 09/25/24 10:40 Ondansetron Inj 4 Mg/2 Ml Vial IV PUSH Q6H PRN Nausea And Vomiting Thiamine HCl 100 mg 09/26/24 09:00 Thiamine Hcl 200 Mg/2 Ml Vial IV PUSH DAILY [facility] Radiology Results: ITS Impressions Chest X-Ray 09/24/24 19:43 IMPRESSION: Cardiomegaly (unchanged) with a large hiatal hernia and small bilateral pleural effusions Head CT 09/24/24 20:52 Impression: No acute intracranial hemorrhage or suspicious mass effect. Age advanced degenerative change, possibly due to microvascular ischemic disease Labs Labs: Laboratory Results - last 24 hr 09/25/24 09/25/24 09/25/24 11:33 12:10 18:22 WBC RBC Hgb Hct MCV MCH MCHC RDW Plt Count MPV Immature Gran % (Auto) Neut % (Auto) Lymph % (Auto) [place] % (Auto) Eos % (Auto) Baso % (Auto) Lymph # (Auto) [place] # (Auto) Eos # (Auto) Baso # (Auto) Abs Immat Gran (auto) Absolute Neuts (auto) Absolute Nucleated RBC Nucleated RBC % Platelet Estimate Giant Platelets % Immature Plt Fraction Anisocytosis [place] Cells Schistocytes Sodium 114 L* Potassium Chloride Carbon Dioxide Anion Gap BUN Creatinine Estim Creat Clear Calc Estimated GFR Glucose POC Capillary Glucose 150 H 147 H Calcium Magnesium Total Bilirubin AST ALT Alkaline Phosphatase Troponin I Total Protein Albumin 09/25/24 09/26/24 09/26/24 19:39 00:05 05:54 WBC 10.6 H RBC 3.93 L Hgb 13.0 L Hct 37.1 L MCV 94.4 MCH 33.1 MCHC 35.0 RDW 12.8 Plt Count 84 L MPV 11.8 H Immature Gran % (Auto) 0.7 H Neut % (Auto) 86.7 H Lymph % (Auto) 3.1 L [place] % (Auto) 9.4 H Eos % (Auto) 0.0 Baso % (Auto) 0.1 L Lymph # (Auto) 0.33 L [place] # (Auto) 1.0 H Eos # (Auto) 0.0 Baso # (Auto) 0.0 Abs Immat Gran (auto) 0.07 H Absolute Neuts (auto) 9.2 H Absolute Nucleated RBC 0.020 H Nucleated RBC % 0.2 Platelet Estimate Decreased Giant Platelets Present % Immature Plt Fraction 9.6 Anisocytosis 1+ Martín Cells 2+ Schistocytes None seen Sodium 113 L* 122 L Potassium 4.8 Chloride 95 L Carbon Dioxide 17 L Anion Gap 10 BUN 21 H Creatinine 1.30 Estim Creat Clear Calc 55 Estimated GFR 56 L Glucose 130 H POC Capillary Glucose 143 H Calcium 8.8 Magnesium 2.2 Total Bilirubin 2.6 H AST 97 H ALT 32 Alkaline Phosphatase 67 Troponin I 0.053 H* Total Protein 7.0 Albumin 3.9 Quality VTE Prophylaxis VTE prophylaxis: mechanical ordered Hospitalist MIPS Advance Care Plan I have confirmed that the patient's Advanced Care Plan is present, code status is documented, or surrogate decision maker is listed in patient medical record.: Yes Medication Reconciliation I have utilized all available resources to obtain, update and review the patients current medications (includes all prescriptions, OTC, herbals, cannabis, and nutritional supplements).: Yes
[2024-09-26] MEDS: METOPROLOL TARTRATE INJ 5 MG/5 ML VIAL 10 MG IV PUSH (11:08)
[2024-09-26 12:52] LABS: Sodium 123 mmol/L (137-145)
[2024-09-26] MEDS: DEXTROSE 5% IN WATER 150 ML 75 ML IV CONT (13:53)
--- NOTE | 2024-09-26 14:21 | PC.NURSE ---
Updated Raphael Gonzalez PUTTY GLAZER on most recent vitals. Respirations 48, HR 105, BP WNL. Pt wheezing, continues to be nonverbal and disoriented. Awake, does not follow commands. No orders received Dr. Potter updated with most recent NA of 123. Orders received for D5W 150 mL, then recheck Na.
[2024-09-26] MEDS: THIAMINE HCL 200 MG/2 ML VIAL 100 MG IV PUSH (16:50)
[2024-09-26] MEDS: FOLIC ACID 1 MG/0.2 ML INJ IV PUSH (16:50)
[2024-09-26 17:35] LABS: Sodium 121 mmol/L (137-145)
[2024-09-26 18:51] LABS: Glucose Point of Care 138 mg/dl (65-105)
[2024-09-26 20:15] LABS: Alveolar/Arterial O2 Gradient 121.5 mmHg; Base Excess ABG -6.8 mEq/l (+/-2.0); Carboxyhemoglobin 0.4 % THb (0-2.0); Fractional Inspired Oxygen 32 %; HCO3 ABG 16.4 mEq/l (22.0-26.0); Methemoglobin ABG 0.1 %THb (0-1.5); Oxygen Content ABG 17.4 %vol (16.0-22.0); Oxygen Saturation ABG 95.4 % (95.0-100.0); Oxyhemoglobin 93.8 % THb (90.0-100.0); PO2 ABG 75.1 mmHg (80.0-100.0); PO2 FiO2 Ratio Arterial Blood 2.35 %; Reduced Hemoglobin 5.7 %THb (0-5.0); Total Hemoglobin 13.2 g/dL (12.0-18.0); pH ABG 7.402 (7.350-7.450)
[2024-09-26 20:16] LABS: Device NASAL CANNULA; Modified Allen's Test Pass; Site Drawn RIGHT RADIAL
[2024-09-26] MEDS: metroNIDAZOLE 500 MG/ISO 100ML 500 MG/100 ML BAG 100 MG IVPB (22:13)
[2024-09-27] VITALS (28 sets, daily range): BP systolic 75–132; BP diastolic 55–93; PULSE 98–127; RESP 18–41; TEMP 36.1–37.4; O2SAT 90–100; BMI 21.8
[2024-09-27 00:27] LABS: Glucose Point of Care 130 mg/dl (65-105)
[2024-09-27] MEDS: IPRATROPIUM 0.5 MG/ALBUTEROL SULFATE 2.5 MG AMPUL.NEB 3 ML INHALATION ×4 (02:10→21:08)
[2024-09-27] MEDS: metroNIDAZOLE 500 MG/ISO 100ML 500 MG/100 ML BAG 100 MG IVPB ×3 (02:41→14:50)
[2024-09-27] MEDS: LORazepam INJ (*CRX) 2 MG/ML VIAL IV PUSH ×2 (02:41→08:52)
[2024-09-27] MEDS: SODIUM CHLORIDE 0.45% 1,000 ML 75 ML IV CONT (02:59)
[2024-09-27 03:23] LABS: Protein, Total 6.8 g/dL (6.1-8.1)
[2024-09-27 04:45] LABS: Anion Gap 7 mmol/L (4-12); Blood Urea Nitrogen 31 mg/dL (9-20); Calcium 8.5 mg/dL (8.4-10.2); Carbon Dioxide 17 mmol/L (22-30); Chloride 99 mmol/L (98-107); Estimated CRCL calculation 36 ml/min; Estimated Glomerular Filt Rate 34; Glucose 117 mg/dL (65-110); Potassium 4.7 mmol/L (3.4-5.0); Sodium 123 mmol/L (137-145)
--- NOTE | 2024-09-27 08:38 | PM.PNNEP ---
Progress Note: A&P Assessment and Plan (1) Hyponatremia: Code(s): E87.1 - Hypo-osmolality and hyponatremia Status: Acute Assessment and Plan: The patient has a low sodium. The patient has had low sodiums dating back to 2018. Generally they run in the high 120s and low 130s. He has never had evaluation for this Evaluation: Urine sodium was less than 5 (and his urine sodium is usually low dating back to 2018), but we do not have a urine creatinine. Urine specific gravity was 1.028. This essentially rules out beer drinkers potomania. Osmolality values are pending CT brain shows no mass effect, however possible microvascular ischemic disease Chest x-ray shows cardiomegaly and bilateral pleural effusion TSH is slightly high at 5.4. Cortisol is 46. SPEP is pending He has chronic hyponatremia possibly related to his drinking or possibly just idiopathic. He could also be chronically pre renal because of his bad heart. Recently worse sodium due to dehydration and prerenal azotemia. He received IV fluid without any help and so hypertonic saline was given which helped. The sodium was trending toward over-correction so he was given half normal saline and sodium level is stable. Now his sodium level is unchanging at 123 He can not be any more fluid restricted since he is not eating or drinking. He is getting half-normal saline at 75 cc per hour now which should keep him from being dehydrated. However now his creatinine is up to 2. He does have a bad LV which would explain pulmonary edema but dehydration at the same time. Will repeat the echo to see if things are worse. If so consider dobutamine. Chest x-ray does show volume overload or possibly aspiration? Looking at his chest x-ray, it seems like his more action on the right than on the left and his crackles or more on the right as well so I suspect this might be dehydration and aspiration pneumonia. His white count is climbing. At this point will repeat the echo see where we are. Will change IV fluid to normal saline to help bring the sodium up. He is already on broad-spectrum antibiotics. Will check urine lytes and an ultrasound just to make shows nothing else going on. (2) HTN (hypertension), benign: Code(s): I10 - Essential (primary) hypertension Status: Acute Assessment and Plan: Blood pressure is a bit too low at times in the 90s. The patient is not on any antihypertensives. (3) Chronic obstructive pulmonary disease: Code(s): J44.9 - Chronic obstructive pulmonary disease, unspecified Status: Acute Assessment and Plan: Getting supportive care (4) Alcohol abuse: Code(s): F10.10 - Alcohol abuse, uncomplicated Status: Acute Assessment and Plan: Encourage to stop (5) Hepatitis C: Code(s): B19.20 - Unspecified viral hepatitis C without hepatic coma Status: Acute Assessment and Plan: Liver enzymes are okay (6) Tobacco dependence: Code(s): F17.200 - Nicotine dependence, unspecified, uncomplicated Status: Acute Assessment and Plan: Encourage to stop (7) Nonischemic cardiomyopathy: Code(s): I42.8 - Other cardiomyopathies Status: Acute Assessment and Plan: Getting supportive care. Recheck an echo (8) Acid-base disorder, mixed: Code(s): E87.4 - Mixed disorder of acid-base balance Status: Acute Assessment and Plan: The patient has a metabolic acidosis with a low bicarb do also a respiratory alkalosis with a low pCO2. The pH is normal and so therefore this is mixed acid-base disorder. The former is a non anion gap metabolic acidosis. Possibly dilutional ? The latter is most likely due to hyperventilation from withdrawal. Will continue saline. I do not think he should get bicarb because his pH will just rise. Subjective Date/time seen: 09/27/24 08:38 Interval history: Patient is not very interactive. Sedated with Ativan. Not eating or drinking any Exam Narrative: WDWN anxious male lying in the hospital bed. Mucous membranes dry skin no rash head ncat lungs few crackles on the right. cor reg no rub abd BS+ nontender and soft ext no edema. Objective Data Vital Signs Vital Signs: Vital Signs - 24 hr 09/26/24 09:35 09/26/24 09:51 09/26/24 10:00 Temperature Pulse Rate 128 H 127 H Pulse Rate [Bilateral Radial Palpation] Respiratory Rate 60 H Blood Pressure 143/110 H Pulse Oximetry 95 Oxygen Delivery Oxygen Flow Rate 09/26/24 11:08 09/26/24 12:00 09/26/24 12:00 Temperature 98.2 F Pulse Rate 128 H 109 H Pulse Rate [Bilateral Radial Palpation] Respiratory Rate 38 H Blood Pressure 101/65 Pulse Oximetry 94 95 Oxygen Delivery Nasal Cannula Oxygen Flow Rate 3 09/26/24 12:00 09/26/24 14:00 09/26/24 14:16 Temperature Pulse Rate 104 H 109 H 104 H Pulse Rate [Bilateral Radial Palpation] Respiratory Rate 48 H Blood Pressure Pulse Oximetry Oxygen Delivery Oxygen Flow Rate 09/26/24 16:00 09/26/24 16:00 09/26/24 16:00 Temperature 98.2 F Pulse Rate 104 H 61 Pulse Rate [Bilateral Radial Palpation] Respiratory Rate 34 H Blood Pressure 109/90 Pulse Oximetry 96 94 Oxygen Delivery Nasal Cannula Oxygen Flow Rate 3 09/26/24 17:37 09/26/24 20:00 09/26/24 20:00 Temperature Pulse Rate 106 H 106 H Pulse Rate [Bilateral Radial Palpation] 102 H Respiratory Rate 40 H Blood Pressure Pulse Oximetry 95 Oxygen Delivery Nasal Cannula Oxygen Flow Rate 3 09/26/24 20:00 09/26/24 20:05 09/26/24 20:22 Temperature 99.9 F H Pulse Rate 101 H 106 H 101 H Pulse Rate [Bilateral Radial Palpation] Respiratory Rate 30 H 32 H Blood Pressure 99/62 L Pulse Oximetry 95 Oxygen Delivery Oxygen Flow Rate 09/26/24 20:29 09/26/24 20:30 09/27/24 00:00 Temperature Pulse Rate 101 H 103 H Pulse Rate [Bilateral Radial Palpation] 106 H Respiratory Rate 32 H 30 H Blood Pressure 95/67 L Pulse Oximetry 95 Oxygen Delivery Nasal Cannula Oxygen Flow Rate 3 09/27/24 00:00 09/27/24 00:00 09/27/24 00:42 Temperature 98.6 F Pulse Rate 106 H 106 H 107 H Pulse Rate [Bilateral Radial Palpation] Respiratory Rate 23 H 23 H Blood Pressure 95/67 L Pulse Oximetry 96 96 Oxygen Delivery Nasal Cannula Oxygen Flow Rate 3 09/27/24 01:43 09/27/24 02:10 09/27/24 02:20 Temperature Pulse Rate 110 H 120 H 122 H Pulse Rate [Bilateral Radial Palpation] Respiratory Rate 30 H 28 H Blood Pressure Pulse Oximetry Oxygen Delivery Oxygen Flow Rate 09/27/24 02:35 09/27/24 03:18 09/27/24 03:18 Temperature Pulse Rate 117 H 117 H Pulse Rate [Bilateral Radial Palpation] 117 H Respiratory Rate 22 H Blood Pressure 95/67 L Pulse Oximetry 93 Oxygen Delivery Nasal Cannula Oxygen Flow Rate 4 09/27/24 03:18 09/27/24 06:00 09/27/24 07:53 Temperature 97.8 F Pulse Rate 117 H 106 H Pulse Rate [Bilateral Radial Palpation] Respiratory Rate 22 H Blood Pressure 97/80 L Pulse Oximetry 96 Oxygen Delivery Nasal Cannula Oxygen Flow Rate 3 09/27/24 07:53 09/27/24 08:16 Temperature 99.3 F Pulse Rate 111 H 113 H Pulse Rate [Bilateral Radial Palpation] Respiratory Rate 26 H 23 H Blood Pressure 116/65 Pulse Oximetry 95 Oxygen Delivery Oxygen Flow Rate Intake/Output Intake/Output: Intake & Output 09/24/24 09/25/24 09/26/24 09/27/24 23:59 23:59 23:59 23:59 Intake Total 1000 1390 188.7 840 Output Total 100 Balance 1000 1290 188.7 840 Meds/Results Medications: Active Medications Generic Name Dose Route Start Last Admin Trade Name Freq PRN Reason Stop Dose Admin Albuterol/Ipratropium 3 ml 09/25/24 14:00 09/27/24 07:50 Ipratropium 0.5 Mg/Albuterol Sulfate 2.5 Mg Ampul.Neb 3 Ml INHALATION 3 ml Q6HRT SETH Administration Chlordiazepoxide HCl 25 mg 09/26/24 09:00 09/27/24 00:06 Chlordiazepoxide (*Crx) 25 Mg Capsule PO Not Given Q8H SETH Folic Acid 1 mg 09/26/24 09:00 09/26/24 16:50 Folic Acid 1 Mg/0.2 Ml Inj IV PUSH 1 mg QAM SETH Administration Ceftriaxone Sodium 2 gm in 100 mls @ 200 mls/hr 09/25/24 09:00 09/26/24 08:23 Rocephin 2 Gm/Ns 100 Ml IVPB 100 mls/hr Q24H SETH Administration Sodium Chloride 1,000 mls @ 50 mls/hr 09/26/24 09:40 09/27/24 02:59 Sodium Chloride 0.45% IV CONT 75 mls/hr .Q20H SETH Administration Metronidazole 500 mg in 100 mls @ 100 mls/hr 09/26/24 21:00 09/27/24 03:40 Flagyl 500 Mg/Iso Soln 100 Ml IVPB Infused Q6H SETH Infusion Lorazepam 2 mg 09/25/24 10:40 09/27/24 02:41 Lorazepam Inj (*Crx) 2 Mg/Ml Vial IV PUSH 2 mg Q2H PRN Administration CIWA > 15 Magnesium Oxide 400 mg 09/25/24 09:00 09/26/24 09:18 Magnesium Oxide 400 Mg Tablet PO Not Given DAILY SETH Ondansetron HCl 4 mg 09/25/24 10:40 Ondansetron Inj 4 Mg/2 Ml Vial IV PUSH Q6H PRN Nausea And Vomiting Thiamine HCl 100 mg 09/26/24 09:00 09/26/24 16:50 Thiamine Hcl 200 Mg/2 Ml Vial IV PUSH 100 mg DAILY SETH Administration Radiology Results: ITS Impressions Chest X-Ray 09/26/24 20:11 IMPRESSION: Moderate diffuse pulmonary airspace disease may represent edema and/or infection, with a component of atelectasis. Small bilateral pleural effusions. Head CT 09/26/24 21:47 IMPRESSION: No acute intracranial process. Labs Labs: Laboratory Results - last 24 hr 09/25/24 09/26/24 09/26/24 03:38 12:12 17:22 Puncture Site ABG pH ABG pCO2 ABG pO2 ABG PO2/FiO2 Ratio ABG HCO3 ABG O2 Saturation ABG O2 Content ABG Base Excess A-a Gradient Oxyhemoglobin Carboxyhemoglobin Methemoglobin Reduced Hemoglobin Total Hemoglobin O2 Delivery Device O2 Liters/Min FiO2 Sodium 123 L 121 L Potassium Chloride Carbon Dioxide Anion Gap BUN Creatinine Estim Creat Clear Calc Estimated GFR Glucose POC Capillary Glucose Calcium Total Protein 6.8 09/26/24 09/26/24 09/27/24 18:49 20:02 00:21 Puncture Site Right radial ABG pH 7.402 ABG pCO2 27.0 L ABG pO2 75.1 L ABG PO2/FiO2 Ratio 2.35 ABG HCO3 16.4 L ABG O2 Saturation 95.4 ABG O2 Content 17.4 ABG Base Excess -6.8 A-a Gradient 121.5 Oxyhemoglobin 93.8 Carboxyhemoglobin 0.4 Methemoglobin 0.1 Reduced Hemoglobin 5.7 H Total Hemoglobin 13.2 O2 Delivery Device Nasal cannula O2 Liters/Min 3.0 FiO2 32 Sodium Potassium Chloride Carbon Dioxide Anion Gap BUN Creatinine Estim Creat Clear Calc Estimated GFR Glucose POC Capillary Glucose 138 H 130 H Calcium Total Protein 09/27/24 04:27 Puncture Site ABG pH ABG pCO2 ABG pO2 ABG PO2/FiO2 Ratio ABG HCO3 ABG O2 Saturation ABG O2 Content ABG Base Excess A-a Gradient Oxyhemoglobin Carboxyhemoglobin Methemoglobin Reduced Hemoglobin Total Hemoglobin O2 Delivery Device O2 Liters/Min FiO2 Sodium 123 L Potassium 4.7 Chloride 99 Carbon Dioxide 17 L Anion Gap 7 BUN 31 H D Creatinine 2.00 H Estim Creat Clear Calc 36 Estimated GFR 34 L Glucose 117 H POC Capillary Glucose Calcium 8.5 Total Protein
--- NOTE | 2024-09-27 08:49 | ECHO_ITS ---
Patient Info Name: Artuor Martinez Age: 64 years : 1960 Gender: Male Ht: 72 in Wt: 160 lbs BSA: 1.92 m2 HR: 113 bpm BP: 116 / 65 mmHg Technical Quality: Good Exam Date: 09/27/2024 11:11 AM Exam Location: Echo Lab Exam Room: [facility] Patient Status: Inpatient Admit Date: 09/26/2024 Staff Ordering Physician: Bishop Potter MD Floor Broker: Kathi Andrade RDCS Attending Provider: Sally Cross Referring Physician: Tariq DAIGLE; Exam Type: CA echo doppler color flow Study Info Complete two-dimensional, color flow and Doppler transthoracic echocardiogram is performed. Summary 1. Complete two-dimensional, color flow and Doppler transthoracic echocardiogram is performed. 2. The left ventricle is severely dilated measuring 7.4 cm in diameter. The left ventricular systolic function is severely reduced. The left ventricular EF is estimated to be 5-10%. 3. The right ventricle is dilated with reduced systolic function. 4. Dilated inferior vena cava with <50% collapse upon inspiration consistent with significantly elevated right atrial pressure, 15 mmHg. Left Ventricle The left ventricle is severely dilated measuring 7.4 cm in diameter. The left ventricular systolic function is severely reduced. The left ventricular EF is estimated to be 5-10%. Right Ventricle The right ventricle is dilated with reduced systolic function. Linear artifact in right ventricle suggestive of catheter(s), pacemaker lead(s), or ICD lead(s). Left Atria The left atrium is dilated. Right Atria The right atrium is dilated. Aortic Valve The aortic valve is trileaflet and opens well. There is no aortic regurgitation. Pulmonic Valve The pulmonic valve is not well visualized. There is color Doppler evidence of mild pulmonic valve regurgitation. Mitral Valve The mitral valve leaflets are thickened. There is mild mitral regurgitation. Tricuspid Valve The tricuspid valve is grossly normal. There is moderate to severe tricuspid regurgitation. Pericardium/Pleural Pericardium is normal in appearance with no evidence for significant pericardial effusion. Inferior Vena Cava Dilated inferior vena cava with <50% collapse upon inspiration consistent with significantly elevated right atrial pressure, 15 mmHg. Dilated inferior vena cava with <50% collapse upon inspiration consistent with significantly elevated right atrial pressure, 15 mmHg. Aorta The aortic root at the level of the sinus of Valsalva measures 3.8 cm in diameter. Left Ventricular Outflow Tract Name Value Normal LVOT 2D LVOT Diameter 2.0 cm Pulmonic Valve Name Value Normal PV Doppler PV Peak Gradient 1 mmHg PV Regurgitation Doppler NH Peak End Diastolic Velocity 117 cm/s Mitral Valve Name Value Normal MV Doppler MV Peak Gradient 5 mmHg MV Mean Gradient 2 mmHg MV Decel Heard 1,491 cm/s2 MV PHT 19 ms MV Area (PHT) 11.5 cm2 4.0-5.0 MV Diastolic Function MV E Peak Velocity 98 cm/s MV A Peak Velocity 28 cm/s MV E/A 3.6 MV Decel Time 66 ms MV Annular TDI MV E/e' (Septal) 22.9 <=8.0 MV E/e' (Lateral) 18.7 <=8.0 MV E/e' (Average) 20.8 Tricuspid Valve Name Value Normal TV Regurgitation Doppler TR Peak Velocity 291 cm/s TR Peak Gradient 25 mmHg Estimated PAP/RSVP RA Pressure 15 mmHg <=5 PA Systolic Pressure 49 mmHg <36 RV Systolic Pressure 49 mmHg <36 Aortic Valve Name Value Normal AV Doppler AV Peak Velocity 94 cm/s AV Peak Gradient 4 mmHg AV Mean Gradient 2 mmHg AV VTI 13 cm AV Regurgitation 2D LVOT Area 3.0 cm2 Ventricles Name Value Normal LV Dimensions 2D/MM IVS Diastolic Thickness (2D) 0.7 cm 0.6-1.0 LVID Diastole (2D) 7.4 cm 4.2-5.8 LVIW Diastolic Thickness (2D) 0.7 cm 0.6-1.0 LVID Systole (2D) 7.1 cm 2.5-4.0 LVOT Diameter 2.0 cm LV Mass (2D Cubed) 231.20 g 88.00-224.00 LV Mass Index (2D Cubed) 121 g/m2 49-115 Relative Wall Thickness (2D) 0.19 LV Fractional Shortening/Ejection Fraction 2D/MM LV Fractional Shortening (2D) 3 % 25-43 LV EF (2D Teicholz) 7 % 52-72 LV Diastolic Volume (4C MOD) 314 ml LV EF (4C MOD) 16 % LV Diastolic Length (4C) 9.5 cm LV Systolic Length (4C) 8.7 cm LV Stroke Volume (4C MOD) 50 ml Atria Name Value Normal LA Dimensions LA Volume (4C A-L) 90 ml RA Dimensions RA Area (4C) 29.4 cm2 <=18.0 Report Signatures
--- NOTE | 2024-09-27 08:56 | ECG_ITS ---
Test Date: 2024-09-27 09:52:23 Measurements Intervals [place] Rate: 114 P: 0 NE: 0 QRS: -22 QRSD: 125 T: 98 QT: 336 QTc: 464 Interpretive Statements PROBABLE ECTOPIC ATRIAL TACHYCARDIA WITH ABERRANT CONDUCTION OR VENTRICULAR PREMATURE COMPLEXES MODERATE INTRAVENTRICULAR CONDUCTION DELAY [105+ ms QRS DURATION, 80+ ms Q/S IN V1/V2, NO Q AND 60+ ms R IN I/aVL/V5/V6] NONSPECIFIC T-WAVE ABNORMALITY ABNORMAL ECG Electronically Signed On 09-27-2024 17:22:45 CONTINUOUS DRIER OPERATOR by Good Mckeon M.D.
[2024-09-27 09:15] LABS: Creatine Kinase 106 U/L (55-170)
[2024-09-27] MEDS: THIAMINE HCL 200 MG/2 ML VIAL 100 MG IV PUSH (09:30)
[2024-09-27] MEDS: DEXTROSE 5%/0.9% SOD CHL 1,000 ML 100 ML IV CONT (09:30)
[2024-09-27] MEDS: FOLIC ACID 1 MG/0.2 ML INJ IV PUSH (09:31)
--- NOTE | 2024-09-27 09:49 | PM.IMPN ---
Progress Note: A&P Assessment and Plan (1) Hyponatremia: Code(s): E87.1 - Hypo-osmolality and hyponatremia Status: Acute Assessment and Plan: 09/24: Presented with weakness ongoing for few weeks, worsening is weakness in the last couple of days in on day of admission at prompted him to come to the ER. - Hyponatremic with sodium 114 on admission. - Improving with gentle hydration and nephrology following. -hyponatremia likely multifactor: Beer potomania, dehydration, nonischemic cardiomyopathy, poor PO intake. - Hx of chronic hyponatremia with non-ischemic cardiomyopathy, sodium levels trending 120-130's previously. - Urine urine lytes shows prerenal picture -serum osmolality has been ordered and pending -ammonia level<9 -TSH elevated -random cortisol within normal limits. -CT brain did not show any mass effect of a possible microvascular ischemic disease. -TSH remains elevated at 5.4 Nephrology following and adjusting fluid accordingly (2) Hepatitis C: Code(s): B19.20 - Unspecified viral hepatitis C without hepatic coma Status: Acute Assessment and Plan: Related a history of liver disease/cirrhosis alcohol abuse -elevated LFTs -HCV positive with high viral titers. - Hasn't received treatment yet due to alcoholism. (3) Elevated troponin: Code(s): R79.89 - Other specified abnormal findings of blood chemistry Status: Acute Assessment and Plan: - No acute ischemia EKG changes. - Likely related to demand ischemia secondary to alcohol withdrawal. -continue telemetry monitoring. (4) Elevated LFTs: Code(s): R79.89 - Other specified abnormal findings of blood chemistry Status: Acute Assessment and Plan: - Likely related to alcohol abuse. -continue to monitor trend. (5) Chronic obstructive pulmonary disease: Code(s): J44.9 - Chronic obstructive pulmonary disease, unspecified Status: Acute Assessment and Plan: - Appears compensated. - Bronchodilators PRN. (6) History of implantable cardioverter-defibrillator (ICD) insertion: Code(s): Z95.810 - Presence of automatic (implantable) cardiac defibrillator Status: Acute Assessment and Plan: - Stable. - Continue tele monitoring with alcohol withdrawal. (7) Electrolyte abnormality: Code(s): E87.8 - Other disorders of electrolyte and fluid balance, not elsewhere classified Status: Acute Assessment and Plan: Replace electrolytes as needed. (8) Alcohol abuse: Code(s): F10.10 - Alcohol abuse, uncomplicated Status: Acute Assessment and Plan: - Continue CIWA protocol - Continue folic acid and thiamine (9) Nonischemic cardiomyopathy: Code(s): I42.8 - Other cardiomyopathies Status: Acute Assessment and Plan: - Appears stable. - Resume Losartan and Coreg with diet. -caution with IV fluids. (10) Thrombocytopenia: Code(s): D69.6 - Thrombocytopenia, unspecified Status: Acute Assessment and Plan: - Likely related to alcohol abuse. - No obvious signs of bleeding noted. - Monitor for bleeding signs. (11) Tobacco dependence: Code(s): F17.200 - Nicotine dependence, unspecified, uncomplicated Status: Acute Assessment and Plan: - Encourage with cessation. - Nicotine patch PRN. Plan Shaun etiology unclear? Cardiorenal vs dehydration vs obstruction US renal pending CT chest and ECHO pending Continue IVF pending above results Acute hypoxemic respiratory failure CHF vs Pneumonia CXR reviewed, CT chest ordered EKG showed afib RVR titrate oxygen, Levaquin and Blood culture f/u with CT chest monitor Atrial fibrillation with RVR ECHO pending Unable to Cardizem due to low EF startedon Metoprolol cardiology consulted DVT prophylaxis: Sq Heparin Stress ulcer prophylaxis: Not indicated Nutrition: Heart healthy diet Code Status: Full code Subjective Date/time seen: 09/27/24 09:49 Interval history: Patient was lethargic at bedside, nurse noted that patient has been agitated overnight CXR showed pulm infiltrates suggestive of Pulm edema, CT chest ordered to rule out Pneumonia. Cr 2.0, Na 123 Review of Systems Review of Systems: Generalized weakness All systems reviewed & are unremarkable except as noted in HPI and below ROS unobtainable: Yes unobtainable due to mental status Exam Narrative: General: Confused and non-verbal on bedrest. HEENT:? Pupils equal and reactive, sclerae is icteric Neck:? Supple Respiratory:? Clear to auscultation bilaterally, Cardiac:? Tachycardia, no murmurs. Abdomen:? Is soft, nontender, nondistended, +ve bowel sound X4 quadrants. Extremities:? Palpable pedal pulses, trace cristina. LE edema. Neuro:? Patient is awake and confused. Skin:? No lesions noted Psych:? Very confused on bedrest. Const: General: cooperative, comfortable, no acute distress, well developed, ill appearing chronically, poor hygiene, tired appearing, average body habitus and thin Nutritional Appearance: average body habitus and thin Orientation/consciousness: oriented to person and oriented to place HENMT: Head: normal to inspection, normocephalic and atraumatic Ears: hearing grossly normal bilaterally Face/Nose/Sinus: normal facial exam Face and sinus: normal facial exam Eyes: General: appearance normal, both eyes and all related structures Pupils: Equal, round and reactive pupils present EOM: EOMs intact bilaterally Neck: Neck: full ROM, no lymphadenopathy and no JVD Thyroid: thyroid normal Lymphatic: no lymphadenopathy noted Resp: Effort & Inspection: normal respiratory effort and able to speak in complete sentences Auscultation: clear to auscultation bilaterally Cardio: Jugular venous distension: no JVD Rate: regular rate Rhythm: regular rhythm Heart sounds: S1 normal heart sound present and S2 normal heart sound present : General: Yes deferred Skin: Rashes: no rashes Wounds: no wounds Neuro: General: oriented to person, oriented to place, CN's II-XI intact bilaterally and Unable to assess gait Cranial nerves: Yes CN's II-XII intact bilaterally and Yes Equal, round and reactive pupils present Cognition (Neuro): normal cognition Speech: normal speech Gait exam (Neuro): Unable to assess gait Motor exam (neuro): 5/5 motor strength present throughout Extrem: General: normal to inspection, full ROM, no joint enlargement and no pedal edema Objective Data Vital Signs Vital Signs: Vital Signs - 24 hr 09/26/24 09:51 09/26/24 10:00 09/26/24 11:08 Temperature Pulse Rate 127 H 128 H Pulse Rate [Bilateral Radial Palpation] Respiratory Rate Blood Pressure 143/110 H Pulse Oximetry Oxygen Delivery Oxygen Flow Rate 09/26/24 12:00 09/26/24 12:00 09/26/24 12:00 Temperature 98.2 F Pulse Rate 109 H 104 H Pulse Rate [Bilateral Radial Palpation] Respiratory Rate 38 H Blood Pressure 101/65 Pulse Oximetry 94 95 Oxygen Delivery Nasal Cannula Oxygen Flow Rate 3 09/26/24 14:00 09/26/24 14:16 09/26/24 16:00 Temperature Pulse Rate 109 H 104 H Pulse Rate [Bilateral Radial Palpation] Respiratory Rate 48 H Blood Pressure Pulse Oximetry 96 Oxygen Delivery Nasal Cannula Oxygen Flow Rate 3 09/26/24 16:00 09/26/24 16:00 09/26/24 17:37 Temperature 98.2 F Pulse Rate 104 H 61 106 H Pulse Rate [Bilateral Radial Palpation] Respiratory Rate 34 H Blood Pressure 109/90 Pulse Oximetry 94 Oxygen Delivery Oxygen Flow Rate 09/26/24 20:00 09/26/24 20:00 09/26/24 20:00 Temperature Pulse Rate 106 H 101 H Pulse Rate [Bilateral Radial Palpation] 102 H Respiratory Rate 40 H Blood Pressure Pulse Oximetry 95 Oxygen Delivery Nasal Cannula Oxygen Flow Rate 3 09/26/24 20:05 09/26/24 20:22 09/26/24 20:29 Temperature 99.9 F H Pulse Rate 106 H 101 H 101 H Pulse Rate [Bilateral Radial Palpation] Respiratory Rate 30 H 32 H 32 H Blood Pressure 99/62 L Pulse Oximetry 95 95 Oxygen Delivery Nasal Cannula Oxygen Flow Rate 3 09/26/24 20:30 09/27/24 00:00 09/27/24 00:00 Temperature Pulse Rate 103 H 106 H Pulse Rate [Bilateral Radial Palpation] 106 H Respiratory Rate 30 H 23 H Blood Pressure 95/67 L Pulse Oximetry 96 Oxygen Delivery Nasal Cannula Oxygen Flow Rate 3 09/27/24 00:00 09/27/24 00:42 09/27/24 01:43 Temperature 98.6 F Pulse Rate 106 H 107 H 110 H Pulse Rate [Bilateral Radial Palpation] Respiratory Rate 23 H Blood Pressure 95/67 L Pulse Oximetry 96 Oxygen Delivery Oxygen Flow Rate 09/27/24 02:10 09/27/24 02:20 09/27/24 02:35 Temperature Pulse Rate 120 H 122 H Pulse Rate [Bilateral Radial Palpation] 117 H Respiratory Rate 30 H 28 H Blood Pressure 95/67 L Pulse Oximetry Oxygen Delivery Oxygen Flow Rate 09/27/24 03:18 09/27/24 03:18 09/27/24 03:18 Temperature 97.8 F Pulse Rate 117 H 117 H 117 H Pulse Rate [Bilateral Radial Palpation] Respiratory Rate 22 H 22 H Blood Pressure 97/80 L Pulse Oximetry 93 Oxygen Delivery Nasal Cannula Oxygen Flow Rate 4 09/27/24 06:00 09/27/24 07:53 09/27/24 07:53 Temperature Pulse Rate 106 H 111 H Pulse Rate [Bilateral Radial Palpation] Respiratory Rate 26 H Blood Pressure Pulse Oximetry 96 Oxygen Delivery Nasal Cannula Oxygen Flow Rate 3 09/27/24 08:16 Temperature 99.3 F Pulse Rate 113 H Pulse Rate [Bilateral Radial Palpation] Respiratory Rate 23 H Blood Pressure 116/65 Pulse Oximetry 95 Oxygen Delivery Oxygen Flow Rate Intake/Output Intake/Output: Intake & Output 09/24/24 09/25/24 09/26/24 09/27/24 23:59 23:59 23:59 23:59 Intake Total 1000 1390 188.7 840 Output Total 100 Balance 1000 1290 188.7 840 Meds/Results Medications: Active Medications Generic Name Dose Route Start Last Admin Trade Name Freq PRN Reason Stop Dose Admin Albuterol/Ipratropium 3 ml 09/25/24 14:00 09/27/24 07:50 Ipratropium 0.5 Mg/Albuterol Sulfate 2.5 Mg Ampul.Neb 3 Ml INHALATION 3 ml Q6HRT SETH Administration Chlordiazepoxide HCl 25 mg 09/26/24 09:00 09/27/24 09:10 Chlordiazepoxide (*Crx) 25 Mg Capsule PO Not Given Q8H SETH Folic Acid 1 mg 09/26/24 09:00 09/27/24 09:31 Folic Acid 1 Mg/0.2 Ml Inj IV PUSH 1 mg QAM SETH Administration Metronidazole 500 mg in 100 mls @ 100 mls/hr 09/26/24 21:00 09/27/24 08:53 Flagyl 500 Mg/Iso Soln 100 Ml IVPB 100 mls/hr Q6H SETH Administration Dextrose/Sodium Chloride 1,000 mls @ 100 mls/hr 09/27/24 08:55 09/27/24 09:30 Dextrose 5% Sodium Chloride 0.9% IV CONT 100 mls/hr .Q10H SETH Administration Dextrose/Sodium Chloride 1,000 mls @ 100 mls/hr 09/27/24 08:55 Dextrose 5% Sodium Chloride 0.9% IV CONT .Q10H SETH Levofloxacin/Dextrose 750 mg in 150 mls @ 100 mls/hr 09/27/24 09:50 Levaquin 750 Mg/D5w 150 Ml IVPB Q24H SETH Metronidazole 500 mg in 100 mls @ 100 mls/hr 09/27/24 09:50 Flagyl 500 Mg/Iso Soln 100 Ml IVPB Q8H SETH Lorazepam 2 mg 09/25/24 10:40 09/27/24 08:52 Lorazepam Inj (*Crx) 2 Mg/Ml Vial IV PUSH 2 mg Q2H PRN Administration CIWA > 15 Magnesium Oxide 400 mg 09/25/24 09:00 09/27/24 09:11 Magnesium Oxide 400 Mg Tablet PO Not Given DAILY SETH Ondansetron HCl 4 mg 09/25/24 10:40 Ondansetron Inj 4 Mg/2 Ml Vial IV PUSH Q6H PRN Nausea And Vomiting Perflutren Lipid Microsphere 0 ml 09/27/24 08:49 Perflutren Lipid Microspheres 1.5 Ml Vial Diluted To 10 Ml Total Volume IV PUSH 09/30/24 08:49 ONCE PRN adequate visualization Protocol Thiamine HCl 100 mg 09/26/24 09:00 09/27/24 09:30 Thiamine Hcl 200 Mg/2 Ml Vial IV PUSH 100 mg DAILY SETH Administration Radiology Results: ITS Impressions Head CT 09/26/24 21:47 IMPRESSION: No acute intracranial process. Chest X-Ray 09/27/24 09:25 IMPRESSION: 1. Stable diffuse lung disease, consistent with pulmonary edema versus pneumonia. 2. Stable small pleural effusions. 3. Cardiomegaly. Labs Labs: Laboratory Results - last 24 hr 09/25/24 09/26/24 09/26/24 03:38 12:12 17:22 Puncture Site ABG pH ABG pCO2 ABG pO2 ABG PO2/FiO2 Ratio ABG HCO3 ABG O2 Saturation ABG O2 Content ABG Base Excess A-a Gradient Oxyhemoglobin Carboxyhemoglobin Methemoglobin Reduced Hemoglobin Total Hemoglobin O2 Delivery Device O2 Liters/Min FiO2 Sodium 123 L 121 L Potassium Chloride Carbon Dioxide Anion Gap BUN Creatinine Estim Creat Clear Calc Estimated GFR Glucose POC Capillary Glucose Calcium Total Creatine Kinase Total Protein 6.8 09/26/24 09/26/24 09/27/24 18:49 20:02 00:21 Puncture Site Right radial ABG pH 7.402 ABG pCO2 27.0 L ABG pO2 75.1 L ABG PO2/FiO2 Ratio 2.35 ABG HCO3 16.4 L ABG O2 Saturation 95.4 ABG O2 Content 17.4 ABG Base Excess -6.8 A-a Gradient 121.5 Oxyhemoglobin 93.8 Carboxyhemoglobin 0.4 Methemoglobin 0.1 Reduced Hemoglobin 5.7 H Total Hemoglobin 13.2 O2 Delivery Device Nasal cannula O2 Liters/Min 3.0 FiO2 32 Sodium Potassium Chloride Carbon Dioxide Anion Gap BUN Creatinine Estim Creat Clear Calc Estimated GFR Glucose POC Capillary Glucose 138 H 130 H Calcium Total Creatine Kinase Total Protein 09/27/24 04:27 Puncture Site ABG pH ABG pCO2 ABG pO2 ABG PO2/FiO2 Ratio ABG HCO3 ABG O2 Saturation ABG O2 Content ABG Base Excess A-a Gradient Oxyhemoglobin Carboxyhemoglobin Methemoglobin Reduced Hemoglobin Total Hemoglobin O2 Delivery Device O2 Liters/Min FiO2 Sodium 123 L Potassium 4.7 Chloride 99 Carbon Dioxide 17 L Anion Gap 7 BUN 31 H D Creatinine 2.00 H Estim Creat Clear Calc 36 Estimated GFR 34 L Glucose 117 H POC Capillary Glucose Calcium 8.5 Total Creatine Kinase 106 Total Protein Quality VTE Prophylaxis VTE prophylaxis: mechanical ordered
[2024-09-27 10:41] LABS: Lactic Acid Reflex 2.9 mmol/L (0.7-2.0)
[2024-09-27 11:33] LABS: Glucose Point of Care 139 mg/dl (65-105)
[2024-09-27 11:39] LABS: Glucose Point of Care > 500 mg/dl (65-105)
[2024-09-27 12:29] LABS: Anion Gap 10 mmol/L (4-12); Blood Urea Nitrogen 33 mg/dL (9-20); Calcium 8.7 mg/dL (8.4-10.2); Carbon Dioxide 16 mmol/L (22-30); Chloride 98 mmol/L (98-107); Estimated CRCL calculation 36 ml/min; Estimated Glomerular Filt Rate 34; Glucose 113 mg/dL (65-110); Potassium 4.9 mmol/L (3.4-5.0); Sodium 124 mmol/L (137-145)
[2024-09-27 13:30] LABS: Reflex Lactic Acid Yes or No Add Lactic
[2024-09-27 14:23] LABS: Osmolality, Urine 615 mOsm/kg (50-1200)
[2024-09-27 14:31] LABS: Lactic Acid 2.1 mmol/L (0.7-2.0)
[2024-09-27] MEDS: FUROSEMIDE INJ 40 MG/4 ML VIAL IV PUSH (14:46)
--- NOTE | 2024-09-27 16:14 | P.PNCA_ITS ---
Progress Note: A&P Assessment and Plan (1) Hypotension: Code(s): I95.9 - Hypotension, unspecified Status: Acute Plan 64-year-old man with nonischemic cardiomyopathy status post ICD, history of alcohol/tobacco/cocaine use, and hepatitis-C initially presented with altered mental status with lethargy who now is cold to touch in extremities with decreasing urine output and rising renal function and liver enzymes with an elevated lactate and also required midodrine for blood pressure support Hypotension with concerns for cardiogenic shock -will proceed with right heart catheterization and initiating dobutamine drip at 5 micrograms/kg per minute -spoke with Dr. Leyva in regards to transferring the patient to higher level of care such as [facility] or [facility] -in the meantime we will transfer to ICU for hemodynamic measurements Nonischemic cardiomyopathy status post ICD -unable to initiate EGD MT given hypotension -would stop his metoprolol Subjective Date/time seen: 09/27/24 16:14 Interval history: Patient altered today. Son at bedside we did not notice patient having any chest pain or shortness of breath. Review of Systems Cardiovascular: Cardiovascular: Reports as per HPI Respiratory: Respiratory: Reports as per HPI Exam Const: Other: Patient alter and minimally responsive. HENMT: Mouth: Yes moist mucous membranes Resp: Auscultation: rales Cardio: Rate: tachycardic Rhythm: regular rhythm GI: GI Palp: Yes Soft to palpation Extrem: General: edema Other: Extremities are cool Objective Data Vital Signs Vital Signs: Vital Signs - 24 hr 09/26/24 17:37 09/26/24 20:00 09/26/24 20:00 Temperature Pulse Rate 106 H 106 H Pulse Rate [Bilateral Radial Palpation] 102 H Respiratory Rate 40 H Blood Pressure Pulse Oximetry 95 Oxygen Delivery Nasal Cannula Oxygen Flow Rate 3 09/26/24 20:00 09/26/24 20:05 09/26/24 20:22 Temperature 37.7 C H Pulse Rate 101 H 106 H 101 H Pulse Rate [Bilateral Radial Palpation] Respiratory Rate 30 H 32 H Blood Pressure 99/62 L Pulse Oximetry 95 Oxygen Delivery Oxygen Flow Rate 09/26/24 20:29 09/26/24 20:30 09/27/24 00:00 Temperature Pulse Rate 101 H 103 H Pulse Rate [Bilateral Radial Palpation] 106 H Respiratory Rate 32 H 30 H Blood Pressure 95/67 L Pulse Oximetry 95 Oxygen Delivery Nasal Cannula Oxygen Flow Rate 3 09/27/24 00:00 09/27/24 00:00 09/27/24 00:42 Temperature 37.0 C Pulse Rate 106 H 106 H 107 H Pulse Rate [Bilateral Radial Palpation] Respiratory Rate 23 H 23 H Blood Pressure 95/67 L Pulse Oximetry 96 96 Oxygen Delivery Nasal Cannula Oxygen Flow Rate 3 09/27/24 01:43 09/27/24 02:10 09/27/24 02:20 Temperature Pulse Rate 110 H 120 H 122 H Pulse Rate [Bilateral Radial Palpation] Respiratory Rate 30 H 28 H Blood Pressure Pulse Oximetry Oxygen Delivery Oxygen Flow Rate 09/27/24 02:35 09/27/24 03:18 09/27/24 03:18 Temperature Pulse Rate 117 H 117 H Pulse Rate [Bilateral Radial Palpation] 117 H Respiratory Rate 22 H Blood Pressure 95/67 L Pulse Oximetry 93 Oxygen Delivery Nasal Cannula Oxygen Flow Rate 4 09/27/24 03:18 09/27/24 06:00 09/27/24 07:53 Temperature 36.6 C Pulse Rate 117 H 106 H Pulse Rate [Bilateral Radial Palpation] Respiratory Rate 22 H Blood Pressure 97/80 L Pulse Oximetry 96 Oxygen Delivery Nasal Cannula Oxygen Flow Rate 3 09/27/24 07:53 09/27/24 08:00 09/27/24 08:00 Temperature Pulse Rate 111 H 115 H 115 H Pulse Rate [Bilateral Radial Palpation] Respiratory Rate 26 H 22 H Blood Pressure Pulse Oximetry 95 Oxygen Delivery Nasal Cannula Oxygen Flow Rate 3 09/27/24 08:16 09/27/24 11:52 09/27/24 14:21 Temperature 37.4 C 36.3 C L Pulse Rate 113 H 115 H 98 Pulse Rate [Bilateral Radial Palpation] Respiratory Rate 23 H 22 H 18 Blood Pressure 116/65 75/55 L Pulse Oximetry 95 95 Oxygen Delivery Oxygen Flow Rate 09/27/24 14:25 09/27/24 14:37 Temperature Pulse Rate 101 H Pulse Rate [Bilateral Radial Palpation] Respiratory Rate 22 H Blood Pressure 106/72 Pulse Oximetry Oxygen Delivery Oxygen Flow Rate Intake/Output Intake/Output: Intake & Output 09/24/24 09/25/24 09/26/24 09/27/24 23:59 23:59 23:59 23:59 Intake Total 1000 1390 188.7 840 Output Total 100 Balance 1000 1290 188.7 840 Meds/Results Medications: Active Medications Generic Name Dose Route Start Last Admin Trade Name Freq PRN Reason Stop Dose Admin Albuterol/Ipratropium 3 ml 09/25/24 14:00 09/27/24 14:21 Ipratropium 0.5 Mg/Albuterol Sulfate 2.5 Mg Ampul.Neb 3 Ml INHALATION 3 ml Q6HRT SETH Administration Chlordiazepoxide HCl 25 mg 09/26/24 09:00 09/27/24 09:10 Chlordiazepoxide (*Crx) 25 Mg Capsule PO Not Given Q8H SETH Folic Acid 1 mg 09/26/24 09:00 09/27/24 09:31 Folic Acid 1 Mg/0.2 Ml Inj IV PUSH 1 mg QAM SETH Administration Heparin Sodium (Porcine) 5,000 units 09/27/24 14:00 Heparin Sodium 5,000 Units/Ml Vial SUB-Q Q8HR SETH Dextrose/Sodium Chloride 1,000 mls @ 100 mls/hr 09/27/24 08:55 09/27/24 09:30 Dextrose 5% Sodium Chloride 0.9% IV CONT 100 mls/hr .Q10H SETH Administration Levofloxacin/Dextrose 750 mg in 150 mls @ 100 mls/hr 09/29/24 09:00 Levaquin 750 Mg/D5w 150 Ml IVPB Q48H SETH Metronidazole 500 mg in 100 mls @ 100 mls/hr 09/27/24 15:00 09/27/24 14:50 Flagyl 500 Mg/Iso Soln 100 Ml IVPB 100 mls/hr Q8HR SETH Administration Lorazepam 2 mg 09/25/24 10:40 09/27/24 08:52 Lorazepam Inj (*Crx) 2 Mg/Ml Vial IV PUSH 2 mg Q2H PRN Administration CIWA > 15 Magnesium Oxide 400 mg 09/25/24 09:00 09/27/24 09:11 Magnesium Oxide 400 Mg Tablet PO Not Given DAILY [facility] Metoprolol Tartrate 6.25 mg 09/27/24 10:25 Metoprolol Tartrate 6.25 Mg Tablet PO Q12HR [facility] Midodrine 10 mg 09/27/24 17:00 Midodrine Hcl 10 Mg Tablet FEED TUBE TID [facility] Ondansetron HCl 4 mg 09/25/24 10:40 Ondansetron Inj 4 Mg/2 Ml Vial IV PUSH Q6H PRN Nausea And Vomiting Perflutren Lipid Microsphere 0 ml 09/27/24 08:49 Perflutren Lipid Microspheres 1.5 Ml Vial Diluted To 10 Ml Total Volume IV PUSH 09/30/24 08:49 ONCE PRN adequate visualization Protocol Thiamine HCl 100 mg 09/26/24 09:00 09/27/24 09:30 Thiamine Hcl 200 Mg/2 Ml Vial IV PUSH 100 mg DAILY SETH Administration Radiology Results: ITS Impressions Head CT 09/26/24 21:47 IMPRESSION: No acute intracranial process. Chest X-Ray 09/27/24 09:25 IMPRESSION: 1. Stable diffuse lung disease, consistent with pulmonary edema versus pneumonia. 2. Stable small pleural effusions. 3. Cardiomegaly. Chest CT 09/27/24 10:55 IMPRESSION: 1. Diffuse lung disease, consistent with pulmonary edema versus pneumonia. 2. Moderate-sized right and small left loculated pleural effusions. 3. Cardiomegaly. 4. Small volume of ascites. 5. Mild mediastinal and left supraclavicular lymphadenopathy, likely reactive. Labs Labs: Laboratory Results - last 24 hr 09/24/24 09/24/24 09/25/24 18:27 18:58 03:38 Puncture Site ABG pH ABG pCO2 ABG pO2 ABG PO2/FiO2 Ratio ABG HCO3 ABG O2 Saturation ABG O2 Content ABG Base Excess A-a Gradient Oxyhemoglobin Carboxyhemoglobin Methemoglobin Reduced Hemoglobin Total Hemoglobin O2 Delivery Device O2 Liters/Min FiO2 Sodium Potassium Chloride Carbon Dioxide Anion Gap BUN Creatinine Estim Creat Clear Calc Estimated GFR Glucose POC Capillary Glucose Serum Osmolality 246 L Lactic Acid Calcium Total Creatine Kinase Total Protein 6.8 Urine Osmolality 615 09/26/24 09/26/24 09/26/24 17:22 18:49 20:02 Puncture Site Right radial ABG pH 7.402 ABG pCO2 27.0 L ABG pO2 75.1 L ABG PO2/FiO2 Ratio 2.35 ABG HCO3 16.4 L ABG O2 Saturation 95.4 ABG O2 Content 17.4 ABG Base Excess -6.8 A-a Gradient 121.5 Oxyhemoglobin 93.8 Carboxyhemoglobin 0.4 Methemoglobin 0.1 Reduced Hemoglobin 5.7 H Total Hemoglobin 13.2 O2 Delivery Device Nasal cannula O2 Liters/Min 3.0 FiO2 32 Sodium 121 L Potassium Chloride Carbon Dioxide Anion Gap BUN Creatinine Estim Creat Clear Calc Estimated GFR Glucose POC Capillary Glucose 138 H Serum Osmolality Lactic Acid Calcium Total Creatine Kinase Total Protein Urine Osmolality 09/27/24 09/27/24 09/27/24 00:21 04:27 10:17 Puncture Site ABG pH ABG pCO2 ABG pO2 ABG PO2/FiO2 Ratio ABG HCO3 ABG O2 Saturation ABG O2 Content ABG Base Excess A-a Gradient Oxyhemoglobin Carboxyhemoglobin Methemoglobin Reduced Hemoglobin Total Hemoglobin O2 Delivery Device O2 Liters/Min FiO2 Sodium 123 L 124 L Potassium 4.7 4.9 Chloride 99 98 Carbon Dioxide 17 L 16 L Anion Gap 7 10 BUN 31 H D 33 H Creatinine 2.00 H 2.00 H Estim Creat Clear Calc 36 36 Estimated GFR 34 L 34 L Glucose 117 H 113 H POC Capillary Glucose 130 H Serum Osmolality Lactic Acid Calcium 8.5 8.7 Total Creatine Kinase 106 Total Protein Urine Osmolality 09/27/24 09/27/24 09/27/24 10:18 11:13 11:25 Puncture Site ABG pH ABG pCO2 ABG pO2 ABG PO2/FiO2 Ratio ABG HCO3 ABG O2 Saturation ABG O2 Content ABG Base Excess A-a Gradient Oxyhemoglobin Carboxyhemoglobin Methemoglobin Reduced Hemoglobin Total Hemoglobin O2 Delivery Device O2 Liters/Min FiO2 Sodium Potassium Chloride Carbon Dioxide Anion Gap BUN Creatinine Estim Creat Clear Calc Estimated GFR Glucose POC Capillary Glucose > 500 H* 139 H Serum Osmolality Lactic Acid 2.9 H Calcium Total Creatine Kinase Total Protein Urine Osmolality 09/27/24 14:15 Puncture Site ABG pH ABG pCO2 ABG pO2 ABG PO2/FiO2 Ratio ABG HCO3 ABG O2 Saturation ABG O2 Content ABG Base Excess A-a Gradient Oxyhemoglobin Carboxyhemoglobin Methemoglobin Reduced Hemoglobin Total Hemoglobin O2 Delivery Device O2 Liters/Min FiO2 Sodium Potassium Chloride Carbon Dioxide Anion Gap BUN Creatinine Estim Creat Clear Calc Estimated GFR Glucose POC Capillary Glucose Serum Osmolality Lactic Acid 2.1 H Calcium Total Creatine Kinase Total Protein Urine Osmolality
[2024-09-27 17:07] LABS: Sodium 125 mmol/L (137-145)
[2024-09-27] MEDS: levoFLOXacin 750 MG/D5W 150 ML 750 MG/150 ML BAG 100 MG IVPB (17:28)
--- NOTE | 2024-09-27 17:30 | PC.NURSE ---
Pt transferred to cardiac cardiac cath lab manager and then to ICU. Report given to MENA Elise.
--- NOTE | 2024-09-27 17:38 | WPDHPUPDATE1 ---
History and Physical Update Update Date/Time: 09/27/24 16:38 History and Physical has been reviewed, including an updated exam of the patient. There are NO changes in the patient's condition. Risks, benefits, and alternatives have been discussed and questions answered. Patient agrees to proceed with procedure.
--- NOTE | 2024-09-27 17:38 | WPDCARDPROC ---
Cardiac Cath Procedure Note Date of procedure:: 09/27/24 Performing physician:: CATHETERIZATION LABORATORY REPORT Procedure Date: 09/27/2024 Referring Physician: Dr Leyva Anesthesia: No sedation was provided given patient's critical condition Pre-op Diagnosis: cardiogenic shock Post-op Diagnosis: cardiogenic shock Procedure(s): Right heart catheterization Access Site: right femoral vein Brief History and Clinical Indications: 64-year-old man with nonischemic cardiomyopathy status post ICD who initially presented for alcohol intoxication who now has cool extremities with decreased urine output and worsening end-organ dysfunction for which a right heart catheterization with leave in [place] was performed and patient was transferred to ICU for dobutamine drip and Lasix All risks, benefits and alternatives to left heart catheterization with or without percutaneous coronary intervention was discussed at length with the patient. Risk of complications including but not limited to bleeding, infection, arrhythmia, stroke, worsening kidney function, blood loss, groin hematoma, limb loss, emergency coronary artery bypass grafting, and even were discussed with the patient and all questions were answered. The patient understood and wished to proceed. Time out called, patient name, date of , medical record number, allergies, procedure performed, identify [employer] Counter Assistant, patient and staff member concurred with accurate data, procedure carried on. Findings: RIGHT HEART CATHETERIZATION FINDINGS: Pressures (mmHg): RA: 18 RV: 33/11 (14) PA: 44/22 (33) PCWP: 35 (v 43) Saturations (%): PA: 49% Arterial: used pulse oximetry with patient on room air as surrogate which was 85% CO/CI: Rayna: 3.8/2.0 SVR 1432 dynes Description of Procedure: Informed consent signed and placed in the chart. Patient transferred to tag and label cutter room. Prepped and draped in usual sterile fashion. 2% lidocaine injected subcutaneously in right groin area. Femoral vein was accessed using micropuncture technique. 8-FR sheath placed. 7F [place]-Fabi[place] catheter was advanced into the right side of the heart chambers and pressures were measured. While trying to maneuver from the RV into the pulmonary arteries, given the dilated chambers, was quite difficult and eventually a [place]-Fabi[place] floated pulmonary artery however 1 shock was given through his defibrillator for ventricular tachycardia. The [place]Fabi[place] catheter was sutured in place under sterile conditions with the sleeve in place. Assessment: Cardiogenic shock with significant volume overload Post Operative Condition: Stable No significant blood loss Disposition: ICU Plan: Start dobutamine 5 micrograms/kg per minute in hopes of increasing UOP goal > 0.5cc/kg/hr If not meeting UOP goal, then start Lasix 80 mg IV push q.12 hours for goal UOP > 0.5cc/kg/hr Transfer to higher level of care given his advanced heart failure condition and current state of cardiogenic shock Brandon Barkley Interventional Cardiology
--- NOTE | 2024-09-27 18:00 | PC.NURSE ---
This patient, Arturo Martinez, was received from Cardiac Network Relations Consultant @ 1600 on 09/27/24 Bedside report received from Shay Rivero, and Shonda. Patient/family oriented to unit policies and routines. Patient condition guarded, to bedside to speak with Dr. Jain. Dr. Barkley previously at bedside for assessment and orders.
[2024-09-27 18:37] LABS: Alveolar/Arterial O2 Gradient 186.1 mmHg; Base Excess ABG -11.4 mEq/l (+/-2.0); Fractional Inspired Oxygen 44 %; HCO3 ABG 14.2 mEq/l (22.0-26.0); Oxygen Content ABG 17.9 %vol (16.0-22.0); Oxygen Saturation ABG 96.2 % (95.0-100.0); Oxyhemoglobin 95.2 % THb (90.0-100.0); PCO2 ABG 31.3 mmHg (35.0-45.0); PO2 ABG 91.9 mmHg (80.0-100.0); PO2 FiO2 Ratio Arterial Blood 2.09 %; Total Hemoglobin 13.3 g/dL (12.0-18.0)
[2024-09-27 18:38] LABS: pH ABG 7.274 (7.350-7.450)
[2024-09-27 18:39] LABS: Device NASAL CANNULA; Modified Allen's Test Pass; Site Drawn LEFT RADIAL
[2024-09-27] MEDS: FUROSEMIDE INJ 100 MG/10 ML VIAL 80 MG IV PUSH (18:43)
[2024-09-27 19:05] LABS: Fractional Inspired Oxygen 44 %; HCO3 VBG 17.1 mEq/l (24.0-30.0); PCO2 VBG 39.5 mmHg (42.0-48.0); pH VBG 7.253 (7.300-7.400)
[2024-09-27 19:06] LABS: Device NASAL CANNULA
[2024-09-27] MEDS: ETOMIDATE 20 MG/10 ML AMPUL IV PUSH (19:10)
--- NOTE | 2024-09-27 19:10 | PC.NURSE ---
completed successful elective intubation by Dr Jain
[2024-09-27] MEDS: ROCURONIUM BROMIDE 50 MG/5 ML VIAL IV PUSH (19:11)
[2024-09-27] MEDS: MIDAZOLAM 100MG/NS 100ML(*CRX) 100 MG/100 ML BAG IV CONT (19:15)
[2024-09-27] MEDS: FENTANYL 2,500MCG/NS250ML(*CRX 2,500 MCG/250 ML BAG IV CONT (19:15)
[2024-09-27] MEDS: DOBUTamine 250 MG/D5W 250 ML 250 MG/250 ML BAG 21.87 MG IV CONT (19:18)
--- NOTE | 2024-09-27 19:23 | WPDPROCEDUR ---
Procedures Intubation Intubation Date: 09/27/24 Intubation Time: 19:10 Consent: Risk and benefits of procedure were discussed with patient's at bedside consented to intubation. A pre-procedural Time-Out was completed immediately before starting the procedure and confirmed: Patient Identification, Site, Procedure, Patient Position and the Availability of Requisite Equipment: Yes Sedative: etomidate Mg given: 20 Paralytic: rocuronium Mg given: 50 Laryngoscope: fiber optic video scope ET tube size: 8 Tube secured depth (cm): 24 Tube secured location: lips Tube placement confirmation: visualized tube passing through cords, equal breath sounds bilaterally, no breath sounds over epigastrium and confirmation by capnometry Patient tolerated procedure: well Additional comments: Patient had a large blood clot extending from side to side obstructing visualization of the larynx required extensive suctioning with Yankauer. Patient maintain oxygenation, blood pressure and heart rate throughout the procedure.
--- NOTE | 2024-09-27 19:51 | PC.NURSE ---
Addendum entered by Philly Avitia RN 09/27/24 19:55: This note was from 09/27/24 at 1400 Original Note: Pt hypotensive, 75/55. Dr. Leyva at bedside. BP recheck WNL. Pt continues to be tachypnic. Order for Lasix 40 mg, midodrine and insert NG tube.
--- NOTE | 2024-09-27 20:04 | P.PNCROSS_ITS ---
Event Note Event Note Event Note: 09/27/2024 at 18:30 I arrived to the ICU to find the patient arriving from the rn labor and delivery after having a [place]-Fabián catheter placed by Cardiology. The patient's respiratory rate at that time was in the mid 20s and heart rate was in the 120s. Patient was awake but responsive only to noxious stimuli, he could localize noxious stimuli but was overtly encephalopathic. The adjunct psychology faculty member had already arranged transferred to [place] as we were awaiting bed assignment. The patient's shortly after arrival to the ICU became more more tachypneic with respiratory rate into the low to mid 30s. He was having abdominal respirations and accessory muscle use. He was overtly diaphoretic and cool to touch. The patient was on dobutamine. Stat ABG was obtained which demonstrated pH of 7.27 pCO2 of 31 and PO2 of 91 on 4 L nasal cannula. Patient's serum bicarb obtained earlier in the day around 14:00 was down to 16. Lactic acid at that time was 2.1. Echocardiogram earlier in the day and demonstrated EF of 5 necessitating the [place]-Fabián procedure. Lower waiting for bed assignment at [facility] the patient's respirations for becoming even more labored. The patient's mixed venous ABG demonstrated worsening pH. I did contact the ICU attending at [place] who agreed that was probably in the patient's best interest to be intubated for airway protection. Patient was subsequently intubated with glide scope 8.0 ET tube. At the time of intubation patient did have a large clot in the posterior oropharynx obscuring vocal cords that required extensive suctioning for removal. Head patient maintained his blood pressures, pulse and oxygen saturations throughout intubation process. At no time did the patient dropped the blood pressures. The patient's ET tube was confirmed placement with chest x-ray. Patient was placed on ventilator AC/CMV tidal volume of 450 rate of 26 peep of 5 100% FiO2. At time of this documentation post intubation venous blood gas is pending. Air ambulance services are not flying due to weather. Patient is awaiting ACLS transfer to [place] ICU. Levophed and vasopressin were ordered in anticipation of hypotension however patient did not become hypotensive. The patient remains on dobutamine. Stat labs including CBC, CMP, and DIC panel have been ordered and are pending. Repeat VBG is prior to discharge with pH of 7.3 pCO2 of 35 PO2 of 72 I discussed the patient's care with the woodwinds teacher, adjunct psychology faculty member, [place] transfer line and I went to the patient's bedside and updated the patient and his family on plan of care. 55 minutes was spent in critical care activities and exclusion of procedures.
[2024-09-27 20:23] LABS: Alveolar/Arterial O2 Gradient 605.1 mmHg; Base Excess ABG -8.5 mEq/l (+/-2.0); Carboxyhemoglobin 0.5 % THb (0-2.0); Fractional Inspired Oxygen 100 %; HCO3 ABG 17.1 mEq/l (22.0-26.0); Methemoglobin ABG 0.2 %THb (0-1.5); Oxygen Content ABG 17.1 %vol (16.0-22.0); Oxygen Saturation ABG 93.2 % (95.0-100.0); Oxyhemoglobin 91.2 % THb (90.0-100.0); PCO2 ABG 35.5 mmHg (35.0-45.0); PO2 ABG 72.4 mmHg (80.0-100.0); PO2 FiO2 Ratio Arterial Blood 0.72 %; Reduced Hemoglobin 8.1 %THb (0-5.0); Total Hemoglobin 13.3 g/dL (12.0-18.0)
[2024-09-27 20:26] LABS: Basophils Percent Auto 0.1 % (0.2-1.2); Hematocrit 34.1 % (42.0-52.0); Immature Granulocyte Absolute 0.04 K/mm3 (0.00-0.031); Immature Granulocyte Percent A 0.5 % (0-0.5); Immature Platelet Fraction Pct 6.4 % (0.9-11.2); Lymphocytes Absolute Auto 0.18 K/mm3 (0.9-3.2); Lymphocytes Percent Auto 2.2 % (18.3-44.2); Mean Corpuscular HGB Conc 35.2 g/dl (32-36); Mean Corpuscular Hemoglobin 33.3 pg (26-34); Mean Corpuscular Volume 94.7 fl (80-100); Mean Platelet Volume 10.8 fl (7.4-10.4); Monocytes Absolute Auto 0.6 K/mm3 (0.1-0.6); Neutrophils Absolute Auto 7.3 K/mm3 (1.3-6.7); Neutrophils Percent Auto 90.2 % (45.5-73.1); White Blood Count 8.1 K/mm3 (4.5-10.0)
[2024-09-27 20:33] LABS: Alanine Aminotransferase 213 U/L (6-50); Albumin Level 3.2 g/dL (3.5-5.1); Alkaline Phosphatase 60 U/L (38-126); Anion Gap 9 mmol/L (4-12); Aspartate Amino Transferase 471 U/L (17-59); Bilirubin,Total 2.2 mg/dL (0.2-1.3); Blood Urea Nitrogen 36 mg/dL (9-20); Calcium 8.4 mg/dL (8.4-10.2); Carbon Dioxide 18 mmol/L (22-30); Chloride 99 mmol/L (98-107); Estimated CRCL calculation 40 ml/min; Estimated Glomerular Filt Rate 38; Glucose 139 mg/dL (65-110); Potassium 3.8 mmol/L (3.4-5.0); Sodium 126 mmol/L (137-145)
[2024-09-27 20:34] LABS: Lactic Acid Reflex 2.1 mmol/L (0.7-2.0)
[2024-09-27 20:35] LABS: Hematocrit 34.1 % (42.0-52.0); Mean Corpuscular HGB Conc 35.2 g/dl (32-36); Mean Corpuscular Hemoglobin 33.3 pg (26-34); Mean Corpuscular Volume 94.7 fl (80-100); Mean Platelet Volume 10.8 fl (7.4-10.4); Platelet Count Result 66 k/mm3 (150-375); White Blood Count 8.1 K/mm3 (4.5-10.0)
[2024-09-27 20:37] LABS: INR 1.9; Prothrombin Time 21.6 Seconds (11.1-14.7)
[2024-09-27 20:38] LABS: Fibrinogen 246 mg/dl (215-510); Partial Thromboplastin Time 35.3 Seconds (22.3-36.8)
[2024-09-27 20:45] LABS: Platelet Count Result 66 k/mm3 (150-375)
[2024-09-27 20:46] LABS: Anisocytosis 1+; Burr Cells 2+; Platelet Estimate Decreased (Adequate); Schistocytes None Seen
[2024-09-27 20:49] LABS: D Dimer 16.87 ug/mL (<0.48)
[2024-09-27 20:57] LABS: Magnesium 2.1 mg/dL (1.6-2.3)
[2024-09-27 21:23] LABS: Device VENTILATOR; Site Drawn ARTLINE
[2024-09-27 21:24] LABS: Arterial Blood Gas Ventilator rate 22 /MIN
[2024-09-27 21:25] LABS: Arterial Blood Gas PEEP 5 cmH2O; Arterial Blood Gas Tidal Volume 450 ml; Arterial Blood Gas Vent Mode CMV
--- NOTE | 2024-09-28 10:19 | P.TS_ITS ---
Transfer Discharge Sum: Prov Provider Date of admission: 09/26/24 08:35 Primary care physician: UNKNOWN,DOCTOR Admitting clinician: Alyson Dalton MD Consults: 09/24/24 23:04 Consult to Physician Routine Comment: Consulting Provider: Shakir Rodriguez smoking pipe coater/MD group to consult: Dr. Rodriguez Reason for consultation: Hyponatremia Has provider been notified: Yes Consult to Physician Routine Comment: Consulting Provider: Bishop Potter smoking pipe coater/MD group to consult: Dr. Potter Reason for consultation: Hyponatremia Has provider been notified: Yes 09/25/24 Consult to Physician Routine Comment: Consulting Provider: Kal Finn smoking pipe coater/MD group to consult: Cardiology Reason for consultation: High cardiac enezymes Has provider been notified: Yes 09/27/24 Consult to Dietitian Routine Reason for Consult:: Tube feeding initiated Consult to Physician Routine Comment: Consulting Provider: Milagros Marx smoking pipe coater/MD group to consult: Pulmonology Reason for consultation: Resp Failure Has provider been notified: Yes Consult to Physician Routine Comment: Consulting Provider: Brandon Barkley smoking pipe coater/MD group to consult: Cardiology Reason for consultation: Afib RVR with cardiomyopathy Has provider been notified: Yes DS: Admitting Diagnosis Discharge Date 09/27/24 Admitting Diagnosis Generalized weakness DS: Discharge Diagnosis Discharge Diagnosis (1) Acid-base disorder, mixed: Code(s): E87.4 - Mixed disorder of acid-base balance Status: Acute (2) Acute hyponatremia: Code(s): E87.1 - Hypo-osmolality and hyponatremia Status: Acute (3) Nonischemic cardiomyopathy: Code(s): I42.8 - Other cardiomyopathies Status: Acute Transfer Discharge Sum: Med Medications Active and Home Medications: Home Medications sildenafil (pulm.hypertension) 20 mg tablet 20 mg PO USEASDIRECTD PRN ED 06/20/20 [History Confirmed 09/25/24] budesonide-formoterol HFA 160 mcg-4.5 mcg/actuation aerosol inhaler (Symbicort) 2 puff inhalation Q12HRT #10.2 grams 06/22/20 [Rx Confirmed 09/25/24] carvedilol 6.25 mg tablet (Coreg) 6.25 mg PO Q12HR #60 tabs 06/22/20 [Rx Confirmed 09/25/24] famotidine 20 mg tablet 20 mg PO Q12HR #60 tabs 06/22/20 [Rx Confirmed 09/25/24] folic acid 1 mg tablet 1 mg PO DAILY #30 tabs 06/22/20 [Rx Confirmed 09/25/24] losartan 50 mg tablet (Cozaar) 50 mg PO QAM #30 tabs 06/22/20 [Rx Confirmed 09/25/24] thiamine HCl (vitamin B1) 100 mg tablet (Vitamin B-1) 100 mg PO QAM #30 tabs 06/22/20 [Rx Confirmed 09/25/24] Transfer Discharge Sum: Hosp Hospital Course Hospital course: Arturo Martinez is a 64 year old male with past medical history significant for alcohol dependence, tobacco dependence, hepatic cirrhosis, hepatitis C chron ic, cardiomyopathy, AICD, COPD. Patient presents to the emergency room due to generalized weakness and altered mental status with lethargy. Patient cannot really participate in any meaningful way for history taking. Preliminary workup was significant for chemistry panel showed sodium of 114, chloride 86, brain atretic peptide 30,000 troponins x3 [id number]. A chest x-ray showed cardiomegaly with hiatal hernia and bilateral pleural effusions a CT of the head showed no acute intracranial hemorrhage however age advanced degenerative change. Patient has been admitted for further evaluation management and treatment. Patient was admitted to ICU and managed for hyponatremia. Sodium improved to 124 and was transferred to the floor. Yesterday patient was less responsive and hypoxemic, CT chest showed pulm edema rule out Pneumonia. ECHO was obtained which showed EF 5-10%. Patient was placed on Midodrine and started on lasix, Cardiology was promptly consulted, patient was promptly evaluated and recommended transfer to [facility]. He also placed [place] Fabián catheter and patient was started on Dobutamine. I called over to [facility] and patient was promptly accepted. While awaiting transfer patient patient went into respiratory arrest and was intubated and eventually transferred to [facility]. Time Spent with Patient Time attestation: Total time spent providing and/or coordinating transfer services: DS: Data Data Completed and Pending Labs on day of discharge: Labs from last 24 hours 09/27/24 09/27/24 09/27/24 20:15 20:15 20:15 WBC RBC Hgb Hct MCV MCH MCHC RDW 13.0 Plt Count 66 L 66 L MPV 10.8 H 10.8 H Immature Gran % (Auto) 0.5 Neut % (Auto) 90.2 H Lymph % (Auto) 2.2 L [place] % (Auto) 7.0 Eos % (Auto) 0.0 Baso % (Auto) 0.1 L Lymph # (Auto) 0.18 L [place] # (Auto) 0.6 Eos # (Auto) 0.0 Baso # (Auto) 0.0 Abs Immat Gran (auto) 0.04 H Absolute Neuts (auto) 7.3 H Absolute Nucleated RBC 0.000 Nucleated RBC % 0.0 Platelet Estimate Decreased % Immature Plt Fraction 6.4 Anisocytosis 1+ Orient Cells 2+ Schistocytes None seen PT 21.6 H D INR 1.9 APTT 35.3 Fibrinogen 246 D-Dimer 16.87 H Puncture Site ABG pH ABG pCO2 ABG pO2 ABG PO2/FiO2 Ratio ABG HCO3 ABG O2 Saturation ABG O2 Content ABG Base Excess VBG pH VBG pCO2 VBG pO2 VBG HCO3 A-a Gradient Oxyhemoglobin Carboxyhemoglobin Methemoglobin Reduced Hemoglobin Total Hemoglobin O2 Delivery Device O2 Liters/Min Minute Volume Vent Rate Vent Mode FiO2 Tidal Volume PEEP Peak Inspir Pressure Pressure Support Sodium 126 L Potassium 3.8 Chloride 99 Carbon Dioxide 18 L Anion Gap 9 BUN 36 H Creatinine 1.80 H Estim Creat Clear Calc 40 Estimated GFR 38 L Glucose 139 H POC Capillary Glucose Serum Osmolality Lactic Acid 2.1 H Calcium 8.4 Magnesium 2.1 Total Bilirubin 2.2 H AST 471 H ALT 213 H Alkaline Phosphatase 60 Total Protein 6.0 L Albumin 3.2 L Urine Osmolality 09/27/24 09/27/24 09/27/24 20:15 20:15 20:15 WBC RBC Hgb Hct MCV 94.7 MCH 33.3 33.3 MCHC 35.2 35.2 RDW 13.0 Plt Count MPV Immature Gran % (Auto) Neut % (Auto) Lymph % (Auto) [place] % (Auto) Eos % (Auto) Baso % (Auto) Lymph # (Auto) [place] # (Auto) Eos # (Auto) Baso # (Auto) Abs Immat Gran (auto) Absolute Neuts (auto) Absolute Nucleated RBC Nucleated RBC % Platelet Estimate % Immature Plt Fraction Anisocytosis Orient Cells Schistocytes PT INR APTT Fibrinogen D-Dimer Puncture Site ABG pH ABG pCO2 ABG pO2 ABG PO2/FiO2 Ratio ABG HCO3 ABG O2 Saturation ABG O2 Content ABG Base Excess VBG pH VBG pCO2 VBG pO2 VBG HCO3 A-a Gradient Oxyhemoglobin Carboxyhemoglobin Methemoglobin Reduced Hemoglobin Total Hemoglobin O2 Delivery Device O2 Liters/Min Minute Volume Vent Rate Vent Mode FiO2 Tidal Volume PEEP Peak Inspir Pressure Pressure Support Sodium Potassium Chloride Carbon Dioxide Anion Gap BUN Creatinine Estim Creat Clear Calc Estimated GFR Glucose POC Capillary Glucose Serum Osmolality Lactic Acid Calcium Magnesium Total Bilirubin AST ALT Alkaline Phosphatase Total Protein Albumin Urine Osmolality 09/27/24 09/27/24 09/27/24 20:15 20:15 20:15 WBC RBC 3.60 L Hgb 12.0 L 12.0 L Hct 34.1 L 34.1 L MCV 94.7 MCH MCHC RDW Plt Count MPV Immature Gran % (Auto) Neut % (Auto) Lymph % (Auto) [place] % (Auto) Eos % (Auto) Baso % (Auto) Lymph # (Auto) [place] # (Auto) Eos # (Auto) Baso # (Auto) Abs Immat Gran (auto) Absolute Neuts (auto) Absolute Nucleated RBC Nucleated RBC % Platelet Estimate % Immature Plt Fraction Anisocytosis Martín Cells Schistocytes PT INR APTT Fibrinogen D-Dimer Puncture Site ABG pH ABG pCO2 ABG pO2 ABG PO2/FiO2 Ratio ABG HCO3 ABG O2 Saturation ABG O2 Content ABG Base Excess VBG pH VBG pCO2 VBG pO2 VBG HCO3 A-a Gradient Oxyhemoglobin Carboxyhemoglobin Methemoglobin Reduced Hemoglobin Total Hemoglobin O2 Delivery Device O2 Liters/Min Minute Volume Vent Rate Vent Mode FiO2 Tidal Volume PEEP Peak Inspir Pressure Pressure Support Sodium Potassium Chloride Carbon Dioxide Anion Gap BUN Creatinine Estim Creat Clear Calc Estimated GFR Glucose POC Capillary Glucose Serum Osmolality Lactic Acid Calcium Magnesium Total Bilirubin AST ALT Alkaline Phosphatase Total Protein Albumin Urine Osmolality 09/27/24 09/27/24 09/27/24 20:15 20:15 20:13 WBC 8.1 8.1 RBC 3.60 L Hgb Hct MCV MCH MCHC RDW Plt Count MPV Immature Gran % (Auto) Neut % (Auto) Lymph % (Auto) [place] % (Auto) Eos % (Auto) Baso % (Auto) Lymph # (Auto) [place] # (Auto) Eos # (Auto) Baso # (Auto) Abs Immat Gran (auto) Absolute Neuts (auto) Absolute Nucleated RBC Nucleated RBC % Platelet Estimate % Immature Plt Fraction Anisocytosis Orient Cells Schistocytes PT INR APTT Fibrinogen D-Dimer Puncture Site ABG pH ABG pCO2 ABG pO2 ABG PO2/FiO2 Ratio ABG HCO3 ABG O2 Saturation ABG O2 Content ABG Base Excess VBG pH Pending VBG pCO2 Pending VBG pO2 Pending VBG HCO3 Pending A-a Gradient Oxyhemoglobin Carboxyhemoglobin Methemoglobin Reduced Hemoglobin Total Hemoglobin O2 Delivery Device Pending O2 Liters/Min Pending Minute Volume Vent Rate Vent Mode FiO2 Tidal Volume PEEP Peak Inspir Pressure Pressure Support Sodium Potassium Chloride Carbon Dioxide Anion Gap BUN Creatinine Estim Creat Clear Calc Estimated GFR Glucose POC Capillary Glucose Serum Osmolality Lactic Acid Calcium Magnesium Total Bilirubin AST ALT Alkaline Phosphatase Total Protein Albumin Urine Osmolality 09/27/24 09/27/24 09/27/24 20:10 18:53 18:29 WBC RBC Hgb Hct MCV MCH MCHC RDW Plt Count MPV Immature Gran % (Auto) Neut % (Auto) Lymph % (Auto) [place] % (Auto) Eos % (Auto) Baso % (Auto) Lymph # (Auto) [place] # (Auto) Eos # (Auto) Baso # (Auto) Abs Immat Gran (auto) Absolute Neuts (auto) Absolute Nucleated RBC Nucleated RBC % Platelet Estimate % Immature Plt Fraction Anisocytosis Orient Cells Schistocytes PT INR APTT Fibrinogen D-Dimer Puncture Site Artline Left radial ABG pH 7.300 L 7.274 L* ABG pCO2 35.5 31.3 L ABG pO2 72.4 L 91.9 ABG PO2/FiO2 Ratio 0.72 2.09 ABG HCO3 17.1 L 14.2 L ABG O2 Saturation 93.2 L 96.2 ABG O2 Content 17.1 17.9 ABG Base Excess -8.5 -11.4 VBG pH 7.253 L VBG pCO2 39.5 L VBG pO2 45.0 VBG HCO3 17.1 L A-a Gradient 605.1 186.1 Oxyhemoglobin 91.2 95.2 Carboxyhemoglobin 0.5 Methemoglobin 0.2 Reduced Hemoglobin 8.1 H Total Hemoglobin 13.3 13.3 O2 Delivery Device Ventilator Nasal cannula Nasal cannula O2 Liters/Min Safety Assistant 6.0 6.0 Minute Volume Not Reportable Vent Rate 22 Vent Mode Cmv FiO2 100 44 44 Tidal Volume 450 PEEP 5 Peak Inspir Pressure Not Reportable Pressure Support Not Reportable Sodium Potassium Chloride Carbon Dioxide Anion Gap BUN Creatinine Estim Creat Clear Calc Estimated GFR Glucose POC Capillary Glucose Serum Osmolality Lactic Acid Calcium Magnesium Total Bilirubin AST ALT Alkaline Phosphatase Total Protein Albumin Urine Osmolality 09/27/24 09/27/24 09/27/24 16:30 14:15 11:25 WBC RBC Hgb Hct MCV MCH MCHC RDW Plt Count MPV Immature Gran % (Auto) Neut % (Auto) Lymph % (Auto) [place] % (Auto) Eos % (Auto) Baso % (Auto) Lymph # (Auto) [place] # (Auto) Eos # (Auto) Baso # (Auto) Abs Immat Gran (auto) Absolute Neuts (auto) Absolute Nucleated RBC Nucleated RBC % Platelet Estimate % Immature Plt Fraction Anisocytosis Martín Cells Schistocytes PT INR APTT Fibrinogen D-Dimer Puncture Site ABG pH ABG pCO2 ABG pO2 ABG PO2/FiO2 Ratio ABG HCO3 ABG O2 Saturation ABG O2 Content ABG Base Excess VBG pH VBG pCO2 VBG pO2 VBG HCO3 A-a Gradient Oxyhemoglobin Carboxyhemoglobin Methemoglobin Reduced Hemoglobin Total Hemoglobin O2 Delivery Device O2 Liters/Min Minute Volume Vent Rate Vent Mode FiO2 Tidal Volume PEEP Peak Inspir Pressure Pressure Support Sodium 125 L Potassium Chloride Carbon Dioxide Anion Gap BUN Creatinine Estim Creat Clear Calc Estimated GFR Glucose POC Capillary Glucose 139 H Serum Osmolality Lactic Acid 2.1 H Calcium Magnesium Total Bilirubin AST ALT Alkaline Phosphatase Total Protein Albumin Urine Osmolality 09/27/24 09/27/24 09/27/24 11:13 10:18 10:17 WBC RBC Hgb Hct MCV MCH MCHC RDW Plt Count MPV Immature Gran % (Auto) Neut % (Auto) Lymph % (Auto) [place] % (Auto) Eos % (Auto) Baso % (Auto) Lymph # (Auto) [place] # (Auto) Eos # (Auto) Baso # (Auto) Abs Immat Gran (auto) Absolute Neuts (auto) Absolute Nucleated RBC Nucleated RBC % Platelet Estimate % Immature Plt Fraction Anisocytosis Martín Cells Schistocytes PT INR APTT Fibrinogen D-Dimer Puncture Site ABG pH ABG pCO2 ABG pO2 ABG PO2/FiO2 Ratio ABG HCO3 ABG O2 Saturation ABG O2 Content ABG Base Excess VBG pH VBG pCO2 VBG pO2 VBG HCO3 A-a Gradient Oxyhemoglobin Carboxyhemoglobin Methemoglobin Reduced Hemoglobin Total Hemoglobin O2 Delivery Device O2 Liters/Min Minute Volume Vent Rate Vent Mode FiO2 Tidal Volume PEEP Peak Inspir Pressure Pressure Support Sodium 124 L Potassium 4.9 Chloride 98 Carbon Dioxide 16 L Anion Gap 10 BUN 33 H Creatinine 2.00 H Estim Creat Clear Calc 36 Estimated GFR 34 L Glucose 113 H POC Capillary Glucose > 500 H* Serum Osmolality Lactic Acid 2.9 H Calcium 8.7 Magnesium Total Bilirubin AST ALT Alkaline Phosphatase Total Protein Albumin Urine Osmolality 09/24/24 09/24/24 18:58 18:27 WBC RBC Hgb Hct MCV MCH MCHC RDW Plt Count MPV Immature Gran % (Auto) Neut % (Auto) Lymph % (Auto) [place] % (Auto) Eos % (Auto) Baso % (Auto) Lymph # (Auto) [place] # (Auto) Eos # (Auto) Baso # (Auto) Abs Immat Gran (auto) Absolute Neuts (auto) Absolute Nucleated RBC Nucleated RBC % Platelet Estimate % Immature Plt Fraction Anisocytosis Orient Cells Schistocytes PT INR APTT Fibrinogen D-Dimer Puncture Site ABG pH ABG pCO2 ABG pO2 ABG PO2/FiO2 Ratio ABG HCO3 ABG O2 Saturation ABG O2 Content ABG Base Excess VBG pH VBG pCO2 VBG pO2 VBG HCO3 A-a Gradient Oxyhemoglobin Carboxyhemoglobin Methemoglobin Reduced Hemoglobin Total Hemoglobin O2 Delivery Device O2 Liters/Min Minute Volume Vent Rate Vent Mode FiO2 Tidal Volume PEEP Peak Inspir Pressure Pressure Support Sodium Potassium Chloride Carbon Dioxide Anion Gap BUN Creatinine Estim Creat Clear Calc Estimated GFR Glucose POC Capillary Glucose Serum Osmolality 246 L Lactic Acid Calcium Magnesium Total Bilirubin AST ALT Alkaline Phosphatase Total Protein Albumin Urine Osmolality 615 Preliminary micro results at discharge 09/27/24 10:32 Blood Culture - Preliminary Blood 09/27/24 10:18 Blood Culture - Preliminary Blood Additional Comments Additional comments: Patient was stable on transfer to [facility].
[2024-10-01 19:08] LABS: Albumin 3.6 g/dL (3.8-4.8); Alpha 1 Globulin 0.4 g/dL (0.2-0.3); Alpha 2 Globulin 0.7 g/dL (0.5-0.9); Beta 1 Globulin 0.4 g/dL (0.4-0.6); Gamma Globulin 1.4 g/dL (0.8-1.7)
== END 2024-09-27 22:27 | disposition short-term general hospital (02) | DRG 640 ==
LOC: ANHED 23:03 → ANHICU 09-25 00:27 → ANHIMU 09-25 13:43 → ANHICU 09-30 15:31
PROVIDERS: Family Medicine; Internal Medicine; Internal Medicine Nephrology; Nurse Practitioner Adult Health; Student in an Organized Health Care Education/Training Program; Admitting Provider Internal Medicine; Emergency Provider Physician Assistant; Visit Provider Internal Medicine
PROC: 4A023N6 Measurement of Cardiac Sampling and Pressure, Right Heart, Percutaneous Approach (ICD-10-PCS; CPT 93451; principal; 2024-09-27 16:15)
DX: E87.1 Hypo-osmolality and hyponatremia (principal); R09.2 Respiratory arrest; R57.0 Cardiogenic shock; I42.8 Other cardiomyopathies; I47.20 Ventricular tachycardia, unspecified; K70.30 Alcoholic cirrhosis of liver without ascites; B18.2 Chronic viral hepatitis C; F10.20 Alcohol dependence, uncomplicated; F17.210 Nicotine dependence, cigarettes, uncomplicated; J44.9 Chronic obstructive pulmonary disease, unspecified; F14.90 Cocaine use, unspecified, uncomplicated; D69.59 Other secondary thrombocytopenia; E87.4 Mixed disorder of acid-base balance; E86.0 Dehydration; R41.0 Disorientation, unspecified; Z95.810 Presence of automatic (implantable) cardiac defibrillator; Z91.148 Patient's other noncompliance with medication regimen for other reason
CPT/HCPCS: 36415; 36600; 70450; 71045; 71046; 71250; 80048; 80053; 80307; 81001; 82140; 82375; 82533; 82550; 82803; 82805; 82948; 83050; 83605; 83735; 83880; 83930; 83935; 84100; 84155; 84165; 84295; 84300; 84439; 84443; 84484; 85018; 85025; 85027; 85055; 85380; 85384; 85610; 85730; 87040; 87086; 87637; 87641; 93005; 93306; 93451; 94002; 94640; 96361; 96365; 96367; 96375; 96376; 99285; C1769; C1894; G0378; J0696; J1250; J1644; J1836; J1940; J1956; J2003; J2060; J2250; J3010; J3411; J3475; J7030; J7040; J7042; J7060; J7131